=== PATIENT | female | born 1985 | race Caucasian/White ===

== ENCOUNTER 2017-11-15 08:11 | Emergency (ER) | payer MEDICAID, SELFPAY ==
[2017-11-15 08:25] VITALS: BP 128/88; PULSE 98; RESP 18; TEMP 37; O2SAT 97
--- NOTE | 2017-11-15 08:44 | W.ED.GENAD ---
Discharge Plan Discharge Details Chief Complaint: RespSymp Clinical Impression: Acute bronchitis Primary Care Provider: Rupali Lynn ED Provider: Drew Cowan Disposition Patient Disposition: HOME Condition: Good Home Meds and New Rx's Prescriptions: New amoxicillin-pot clavulanate [Augmentin] 875-125 mg tablet 1 tab PO BID Qty: 20 RF: 0 prednisone 50 mg tablet 50 mg PO DAILY 5 Days Qty: 5 RF: 0 Continue levonorgestrel [Mirena] 20 mcg/24 hr (5 years) Intrauterine Device 1 insert INTRAUTERINE ONCE RF: 0 albuterol sulfate 90 mcg/actuation Hfa Aerosol Inhaler 2 puff INHALATION Q6H PRNRF: 0 Discharge Instructions Instructions: Asthma (ED), Bronchospasm (ED) Additional Instructions: Take antibiotics as prescribed. Please take prednisone as prescribed. Follow-up with regular doctor if not improving in 5-7 days to Medical Decision Making MDM Narrative Medical decision making narrative: 32yof presents with cough, congestion, wheeze and probable L otitis media on exam. AFebrile and with normal oxygenation and speech. DDX includes bronchitis, pneumonia, exacerbation of RAD. Referred for CXR, given oral steroids and inhaled duoneb. Patient improving. Question small linear infiltrate on x-ray. I recommend we treat her with a course of Augmentin, ongoing burst of oral steroids, continue efforts at smoking cessation. She states she has a working inhaler. She understands return in fall precautions HPI - General Adult General Mode of arrival: ambulatory. Date/Time Provider Initiated Documentation: 11/15/17 08:14. Limitations to Documentation: no limitations and language barrier. Information obtained by: patient. History of Present Illness 32 year old F presents to the emergency department with the chief complaint of SOB, cough, head cold for days, minimally improved with inhaler at home., described as moderate, and is localized to the head and chest. Patient reports no radiation. Patient started experiencing this day(s) and it has been constant. No relieving factors improve symptom(s), No exacerbating factors reported . Patient did receive the following treatments prior to arrival, other Related Data Home Medications Medication Instructions Recorded Confirmed albuterol sulfate 2 puff INHALATION Q6H PRN 11/15/17 11/15/17 levonorgestrel [Mirena] 1 insert INTRAUTERINE ONCE 11/15/17 11/15/17 Previous Rx's Medication Instructions Recorded amoxicillin-pot clavulanate 1 tab PO BID #20 tab 11/15/17 [Augmentin] prednisone 50 mg PO DAILY 5 Days #5 tab 11/15/17 Allergies Allergy/AdvReac Type Severity Reaction Status Date / Time sulfamethoxazole Allergy Hives Unverified 11/15/17 08:31 [From Bactrim] trimethoprim [From Bactrim] Allergy Hives Unverified 11/15/17 08:31 General Stated Complaint: RespSymp JANESSA: 3 Review of Systems Review of Systems no CP, swelling, n/v/d/f/c. PFSH Social History Smoking/Tobacco Use Status: Current every day Exam Const General: cooperative Nutritional Appearance: average body habitus Orientation: alert and oriented x3 HENMT Head: normal to inspection and normocephalic Ears: hearing grossly normal bilaterally and TM's abnormal bilaterally (L TM distendedm erythematous) Mouth: oral mucosae normal and moist mucous membranes Eyes General: appearance normal, both eyes and all related structures Eyelids: eyelids normal Neck Neck: normal visual inspection, full ROM and lymphadenopathy noted Chest Chest: normal inspection of the chest and normal palpation of entire chest wall Resp Effort & Inspection: normal respiratory effort, able to speak in complete sentences and audible wheezes Cardio Rate: regular rate Rhythm: regular rhythm GI Inspection: normal to inspection Palpation: soft Back/Spine/Pelvis Back: No back tenderness Thoracic/Lumbar Spine: thoracic and lumbar spine normal to inspection Skin General skin exam: no rashes or lesions noted and turgor normal Neuro General: alert, awake and oriented x3 Cognition: normal cognition Speech: speech normal Extrem General: normal to inspection, full ROM and no pedal edema Psych Appearance: grossly normal Mental Status: mental status grossly normal Speech and Movement: speech and movement normal Course Vital Signs Temperature 37 C 11/15/17 08:25 Pulse 98 H 11/15/17 08:25 Respiratory Rate 18 11/15/17 08:25 Blood Pressure 128/88 11/15/17 08:25 Pulse Oximetry 97 11/15/17 08:25 Temperature 37 C 11/15/17 08:25 Pulse 98 H 11/15/17 08:25 Respiratory Rate 18 11/15/17 08:25 Blood Pressure 128/88 11/15/17 08:25 Pulse Oximetry 97 11/15/17 08:25
--- NOTE | 2017-11-15 08:48 | ED.GENADUL_ITS ---
Discharge Plan Discharge Details Chief Complaint: RespSymp Clinical Impression: Acute bronchitis Primary Care Provider: Rupali Lynn ED Provider: Drew Cowan Disposition Patient Disposition: HOME Condition: Good Home Meds and New Rx's Prescriptions: New amoxicillin-pot clavulanate [Augmentin] 875-125 mg tablet 1 tab PO BID Qty: 20 RF: 0 prednisone 50 mg tablet 50 mg PO DAILY 5 Days Qty: 5 RF: 0 Continue levonorgestrel [Mirena] 20 mcg/24 hr (5 years) Intrauterine Device 1 insert INTRAUTERINE ONCE RF: 0 albuterol sulfate 90 mcg/actuation Hfa Aerosol Inhaler 2 puff INHALATION Q6H PRNRF: 0 Discharge Instructions Instructions: Asthma (ED), Bronchospasm (ED) Additional Instructions: Take antibiotics as prescribed. Please take prednisone as prescribed. Follow-up with regular doctor if not improving in 5-7 days to Medical Decision Making MDM Narrative Medical decision making narrative: 32yof presents with cough, congestion, wheeze and probable L otitis media on exam. AFebrile and with normal oxygenation and speech. DDX includes bronchitis, pneumonia, exacerbation of RAD. Referred for CXR, given oral steroids and inhaled duoneb. Patient improving. Question small linear infiltrate on x-ray. I recommend we treat her with a course of Augmentin, ongoing burst of oral steroids, continue efforts at smoking cessation. She states she has a working inhaler. She understands return in fall precautions HPI - General Adult General Mode of arrival: ambulatory . Date/Time Provider Initiated Documentation: 11/15/17 08:14 . Limitations to Documentation: no limitations and language barrier . Information obtained by: patient . History of Present Illness 32 year old F presents to the emergency department with the chief complaint of SOB, cough, head cold for days, minimally improved with inhaler at home., described as moderate, and is localized to the head and chest. Patient reports no radiation. Patient started experiencing this day(s) and it has been constant. No relieving factors improve symptom(s), No exacerbating factors reported . Patient did receive the following treatments prior to arrival, other Related Data Home Medications Medication Instructions Recorded Confirmed albuterol sulfate 2 puff INHALATION Q6H PRN 11/15/17 11/15/17 levonorgestrel [Mirena] 1 insert INTRAUTERINE ONCE 11/15/17 11/15/17 Previous Rx's Medication Instructions Recorded amoxicillin-pot clavulanate 1 tab PO BID #20 tab 11/15/17 [Augmentin] prednisone 50 mg PO DAILY 5 Days #5 tab 11/15/17 Allergies Allergy/AdvReac Type Severity Reaction Status Date / Time sulfamethoxazole Allergy Hives Unverified 11/15/17 08:31 [From Bactrim] trimethoprim [From Bactrim] Allergy Hives Unverified 11/15/17 08:31 General Stated Complaint: RespSymp JANESSA: 3 Review of Systems Review of Systems no CP, swelling, n/v/d/f/c. PFSH Social History Smoking/Tobacco Use Status: Current every day Exam Const General: cooperative Nutritional Appearance: average body habitus Orientation: alert and oriented x3 HENMT Head: normal to inspection and normocephalic Ears: hearing grossly normal bilaterally and TM's abnormal bilaterally (L TM distendedm erythematous) Mouth: oral mucosae normal and moist mucous membranes Eyes General: appearance normal, both eyes and all related structures Eyelids: eyelids normal Neck Neck: normal visual inspection, full ROM and lymphadenopathy noted Chest Chest: normal inspection of the chest and normal palpation of entire chest wall Resp Effort & Inspection: normal respiratory effort, able to speak in complete sentences and audible wheezes Cardio Rate: regular rate Rhythm: regular rhythm GI Inspection: normal to inspection Palpation: soft Back/Spine/Pelvis Back: No back tenderness Thoracic/Lumbar Spine: thoracic and lumbar spine normal to inspection Skin General skin exam: no rashes or lesions noted and turgor normal Neuro General: alert, awake and oriented x3 Cognition: normal cognition Speech: speech normal Extrem General: normal to inspection, full ROM and no pedal edema Psych Appearance: grossly normal Mental Status: mental status grossly normal Speech and Movement: speech and movement normal Course Vital Signs Temperature 37 C 11/15/17 08:25 Pulse 98 H 11/15/17 08:25 Respiratory Rate 18 11/15/17 08:25 Blood Pressure 128/88 11/15/17 08:25 Pulse Oximetry 97 11/15/17 08:25 Temperature 37 C 11/15/17 08:25 Pulse 98 H 11/15/17 08:25 Respiratory Rate 18 11/15/17 08:25 Blood Pressure 128/88 11/15/17 08:25 Pulse Oximetry 97 11/15/17 08:25
[2017-11-15] MEDS: predniSONE 20 MG TAB 60 MG PO (08:54)
[2017-11-15 08:55] VITALS: PULSE 98; RESP 18; RESP 4; O2SAT 97
[2017-11-15] MEDS: Albuterol/Ipratropium 3 ML UPD VIAL UPD (08:55)
[2017-11-15 09:25] VITALS: RESP 4
--- NOTE | 2017-11-15 09:35 | DI.RAD_ITS ---
SYMPTOM/DIAGNOSIS: COUGH, WHEEZE PA AND LATERAL CHEST: 11/15 The heart is not enlarged There is a mild bi-convex thoracolumbar scoliosis. There is partial obscuration of the right cardiac border. There is a possible right infra-hilar infiltrate seen on PA view although not clearly confirmed on the lateral view. Otherwise lungs appear generally clear. No pleural effusion or pneumothorax identified. CONCLUSION: Question right medial basilar infiltrate. Appropriate follow up studies requested.
== END 2017-11-15 09:45 | disposition home or self-care (01) ==
PROVIDERS: Emergency Provider Emergency Medicine; PCP Physician Assistant Medical
DX: J20.9 Acute bronchitis, unspecified (principal); F17.210 Nicotine dependence, cigarettes, uncomplicated
CPT/HCPCS: 94640; 99283; 71046; J7512; J7620

== ENCOUNTER 2018-10-04 13:57 | Emergency (ER) | payer MEDICAID, SELFPAY ==
[2018-10-04 14:02] VITALS: BP 147/85; PULSE 115; RESP 12; TEMP 36.8; O2SAT 96
[2018-10-04 14:16] LABS: Bilirubin Small (Negative); Blood Negative (Negative); Clarity Sl Cloudy (Clear); Glucose Negative (Negative); Ketones 40 mg/dL (Negative); Leukocyte Esterase Negative (Negative); Nitrite Negative (Negative); Specific Gravity >= 1.030 (1.005-1.025); Urobilinogen 0.2 EU/dL (Up TO 0.2); pH 5.5 (5-8)
--- NOTE | 2018-10-04 14:16 | W.ED.GENAD ---
Discharge Plan Disposition Patient Disposition: HOME Condition: Stable Discharge Details Chief Complaint: Urinary Clinical Impression: UTI (urinary tract infection) Primary Care Provider: Rupali Lynn ED Provider: Olivia Geronimo Home Meds and New Rx's Prescriptions: New ciprofloxacin HCl [Cipro] 500 mg tablet 500 mg PO BID 7 Days Qty: 14 RF: 0 metronidazole [Flagyl] 500 mg tablet 500 mg PO BID 5 Days Qty: 10 RF: 0 phenazopyridine [Pyridium] 100 mg tablet 100 mg PO TID PRN (Reason: pain) Qty: 6 RF: 0 Continued Mirena 20 mcg/24 hr (5 years) Intrauterine Device 1 insert INTRAUTERINE ONCE RF: 0 albuterol sulfate 90 mcg/actuation Hfa Aerosol Inhaler 2 puff INHALATION Q6H PRNRF: 0 Discharge Instructions Instructions: Urinary Tract Infection in Women (ED) Additional Instructions: Take the antibiotics until finished. Take the Pyridium as needed and directed for pain with urination. If you still notice vaginal discharge and odor after you finish your antibiotics and your urinary symptoms improve, you can start the Flagyl. Follow-up with your primary care doctor for reevaluation and for recheck of a urinalysis and further evaluation of the protein noted in your urine. Follow-up with your DRAPERY COUNSELOR for reevaluation and for further STD testing if desired. Return to the emergency department if you develop any worsening or concerning symptoms of fever, vomiting, abdominal pain or back pain. Results of your chlamydia and gonorrhea urine testing should be available in the next few days. If there is a positive result, you will be notified by phone from the emergency department. You can also call the emergency department for results of your test. Discharge Data Discharge Date/Time-TO BE ENTERED AT DEPARTURE: 10/04/18 15:25 Discharge Physician: Olivia Geronimo Medical Decision Making 33-year-old female with a history of asthma who presents to the ED with complaint of dysuria, urinary frequency and urgency for the past week. Denies fever, vomiting, or back pain at present. Patient appears nontoxic. Abdomen soft and minimally tender in suprapubic region. No CVA tenderness. test negative. Differential diagnosis includes UTI, pyelonephritis, interstitial cystitis, cervicitis, urethritis, bacterial vaginosis. She had back pain earlier in the day but denies any at present so not consistent with kidney stone and does not appear consistent with pyelonephritis at this time without other systemic symptoms. Urinalysis notes 10-20 WBCs and urine culture sent. Patient also admits to clear discharge which is thicker than her usual physiologic discharge. She is declining pelvic exam and cervical cultures. She is declining any labs or imaging. She would prefer treatment for urinary tract infection. It was also discussed that her symptoms could be due to bacterial vaginosis. She would rather take a prescription for Flagyl to start if her symptoms not improve after treatment with antibiotics for UTI. A prescription for ciprofloxacin was given to cover for possible pyelonephritis as she has an allergy to penicillin and sulfa and Macrobid would not be good coverage for pyelonephritis. She requested a prescription for Pyridium. She was informed of the potential side effects of fluoroquinolones including tendinopathy and tendon rupture and is agreeable with this treatment at this time. She also expressed concern about possible STD. She is sexually active with one partner and denies any known exposures. A dirty urine sample was obtained to test for gonorrhea chlamydia. She is declining treatment for gonorrhea/chlamydia at this time. She was informed that she will be notified of any positive GC results of pending urine sample. She is advised to follow-up with her primary care doctor for evaluation and to return here at any time if worse. Medical Records Medical records reviewed: Yes I reviewed the patient's medical records. Lab Data Lab results reviewed: Yes I reviewed the patient's lab results. Laboratory Tests Range/Units 10/04/18 10/04/18 14:08 14:56 Urine Color (Yellow) Yellow Urine Clarity (Clear) Sl cloudy Urine pH (5-8) 5.5 Ur Specific Handley (1.005-1.025) >= 1.030 H Urine Protein (Negative) mg/dL 30 H Urine Ketones (Negative) mg/dL 40 H Urine Blood (Negative) Negative Urine Nitrite (Negative) Negative Urine Bilirubin (Negative) Small H Urine Urobilinogen (Up TO 0.2) EU/dL 0.2 Ur Leukocyte Esterase (Negative) Negative Urine RBC (0-2) Negative Urine WBC (0-5) HPF 10-20 Ur Epithelial Cells (Negative) HPF Few Urine Crystals (Negative) HPF Many amorphous Urine Bacteria (Negative) HPF Few Urine Casts (Negative) LPF Negative Urine Mucus (Negative) Moderate Ur Culture Indicated? Yes Urine Glucose (Negative) mg/dL Negative Ur Chlamydia DNA Probe Negative Chlamydia/GC DNA Source urine Urine GC DNA Probe Negative HPI General Mode of arrival: ambulatory. Date/Time Provider Initiated Documentation: 10/04/18 14:06. Limitations to Documentation: no limitations. Information obtained by: patient. HPI Narrative: 33-year-old female with a history of asthma who presents to the ED with complaint of dysuria, urinary frequency and urgency for the past week. She admits to occasional nausea for the past several weeks but denies fever, vomiting, or back pain at present. She also stated that she has had intermittent bilateral flank pain for the past week but denies any at present. She also admits to intermittent lower abdominal pain but denies any at present. She states she is on Mirena and does not get regular periods but has had intermittent light bleeding for the past week. She denies any recent antibiotics. She states she is sexually active with one partner and does not use protection. She admits to clear vaginal discharge that is slightly thicker than usual. She denies any green or yellow vaginal discharge or genital lesions. She denies any external erythema or pruritus. Related Data Home Medications Medication Instructions Recorded Confirmed Mirena 1 insert INTRAUTERINE ONCE 11/15/17 10/04/18 albuterol sulfate 2 puff INHALATION Q6H PRN 11/15/17 10/04/18 ciprofloxacin HCl [Cipro] 500 mg PO BID 7 Days #14 tab 10/04/18 metronidazole [Flagyl] 500 mg PO BID 5 Days #10 tab 10/04/18 phenazopyridine [Pyridium] 100 mg PO TID PRN #6 tab 10/04/18 Previous Rx's Medication Instructions Recorded ciprofloxacin HCl [Cipro] 500 mg PO BID 7 Days #14 tab 10/04/18 metronidazole [Flagyl] 500 mg PO BID 5 Days #10 tab 10/04/18 phenazopyridine [Pyridium] 100 mg PO TID PRN #6 tab 10/04/18 Allergies Allergy/AdvReac Type Severity Reaction Status Date / Time amoxicillin Allergy Unverified 10/04/18 14:06 sulfamethoxazole Allergy Hives Unverified 11/15/17 08:31 [From Bactrim] trimethoprim [From Bactrim] Allergy Hives Unverified 11/15/17 08:31 General Stated Complaint: Urinary JANESSA: 3 Review of Systems Review of Systems All systems reviewed & are unremarkable except as noted in HPI and below Constitutional Reports as per HPI, Denies chills and Denies fever(s) Eyes Denies blurry vision ENT Denies dizziness, Denies sore throat and Denies throat swelling Cardiovascular Denies chest pain and Denies dyspnea Respiratory Denies cough and Denies dyspnea Gastrointestinal Reports abdominal pain, Denies diarrhea and Denies vomiting Genitourinary Denies hematuria, Reports urinary frequency, Denies genital pruritis, Denies genital lesions, Denies dysuria, Reports flank pain, Reports urinary urgency and Reports vaginal discharge (clear, minimally different compared to physiologic) Musculoskeletal Denies back pain and Denies numbness Integumentary/Breasts Denies lesions and Denies rash Neurologic Denies dizziness, Denies focal weakness and Denies numbness Allergic/Immunologic Denies throat swelling PFS Medical History Asthma (Chronic) Surgical History H/O section (Chronic) Hx of cholecystectomy (Chronic) Social History Smoking/Tobacco Use Status: Current every day Tobacco Type: cigarettes Drug use: Occasionally Do you feel safe at home: Yes Do you feel safe in your relationship?: Yes Exam Const General: cooperative, healthy appearing and no acute distress HENMT Head: normal to inspection Face and sinus: normal facial exam Eyes General: appearance normal, both eyes and all related structures Pupils: PERRL EOM: EOM intact bilaterally Neck Neck: normal visual inspection and No submandibular swelling Lymphatic: no lymphadenopathy noted Chest Chest: normal inspection of the chest and no tenderness Resp Effort & Inspection: normal respiratory effort and able to speak in complete sentences Auscultation: clear to auscultation bilaterally Cardio Rate: regular rate Rhythm: regular rhythm GI Inspection: normal to inspection Palpation: soft, not firm, not rigid and tender suprapubicly (mild) Auscultation: normal bowel sounds Back/Spine/Pelvis Back: no CVA tenderness Skin General skin exam: no rashes or lesions noted Neuro General: alert, awake and oriented x3 Cognition: normal cognition Speech: speech normal Motor: muscle tone normal throughout Sensory Exam: no sensory deficits noted Extrem General: normal to inspection, full ROM, normal capillary refill, no calf tenderness bilaterally and no edema Psych Appearance: grossly normal Mental Status: mental status grossly normal Speech and Movement: speech and movement normal Affect: normal affect Course Vital Signs Temperature 98.2 F 10/04/18 14:02 Pulse 115 H 10/04/18 14:02 Respiratory Rate 12 10/04/18 14:02 Blood Pressure 147/85 H 10/04/18 14:02 Pulse Oximetry 96 10/04/18 14:02 Temperature 98.2 F 10/04/18 14:02 Temperature Source Temporal Artery Scan 10/04/18 14:02 Pulse 115 H 10/04/18 14:02 Respiratory Rate 12 10/04/18 14:02 Respiratory Effort Non-Labored 10/04/18 14:05 Blood Pressure 147/85 H 10/04/18 14:02 Blood Pressure Position Sitting 10/04/18 14:02 Pulse Oximetry 96 10/04/18 14:02 Oxygen Delivery Method Room Air 10/04/18 14:02 Oxygen Flow Rate 0 10/04/18 14:02 Pain Level 6 10/04/18 14:02
[2018-10-04 14:47] LABS: Bacteria Few HPF (Negative); C & S Indicated? Yes; Casts Negative LPF (Negative); Crystals Many Amorphous HPF (Negative); Epithelial Cells Few HPF (Negative); Mucus Moderate (Negative); RBC Negative (0-2)
[2018-10-04 15:09] VITALS: BP 145/88; PULSE 92; RESP 18; O2SAT 98
[2018-10-04] MEDS: Phenazopyridine 100 MG TAB PO (15:12)
[2018-10-05 14:40] LABS: Chlamydia Result Negative; GC Result Negative
== END 2018-10-04 15:25 | disposition home or self-care (01) ==
PROVIDERS: Emergency Provider Physician Assistant; PCP Physician Assistant Medical
DX: N39.0 Urinary tract infection, site not specified (principal)
CPT/HCPCS: 81025; 87491; 87591; 99283; 81003; 81015; 87086

== ENCOUNTER 2018-10-16 16:19 | Emergency (ER) | payer MEDICAID, SELFPAY ==
[2018-10-16 16:24] VITALS: BP 143/89; PULSE 100; RESP 16; TEMP 37.2; O2SAT 97
--- NOTE | 2018-10-16 16:28 | ED.GENADUL_ITS ---
Discharge Plan Disposition Patient Disposition: HOME Condition: Stable Discharge Details Chief Complaint: RashLesion Clinical Impression: Cellulitis of right breast Primary Care Provider: Rupali Lynn ED Provider: Olivia Geronimo Home Meds and New Rx's Prescriptions: New clindamycin HCl 150 mg capsule 450 mg PO Q6H 7 Days Qty: 84 RF: 0 Continued phenazopyridine [Pyridium] 100 mg tablet 100 mg PO TID PRN (Reason: pain) Qty: 6 RF: 0 Mirena 20 mcg/24 hr (5 years) Intrauterine Device 1 insert INTRAUTERINE ONCE RF: 0 albuterol sulfate 90 mcg/actuation Hfa Aerosol Inhaler 2 puff INHALATION Q6H PRNRF: 0 Discharge Instructions Instructions: Cellulitis (ED) Additional Instructions: Alternate tylenol and motrin as needed and directed for pain. Apply warm compresses to the affected area several times daily for 20 minutes at a time. Take the antibiotics until finished. Call your postal service window clerk tomorrow morning to schedule a follow up appointment in the next week. Return immediately to the emergency department if you develop any worsening or new concerning symptoms. Discharge Data Discharge Physician: Olivia Geronimo Medical Decision Making 33yo F with right medial breast swelling for the past 3 days, with development of pain since last night. Denies any fever or injury. Patient is afebrile. She appears nontoxic. There is an approximate 3 x 4 cm indurated area right medial breast with surrounding minimal erythema. Bedside ultrasound done which noted possible collection of minimal pus. It is likely that due to patient's wire bras, she developed a local area of cellulitis. Discussed with patient that we can attempt an I&D but she is declining this at this time and would rather take antiviral . She is instructed to apply warm compresses several times daily and take the antibiotics until finished. She is advised to avoid wearing her usual wire bra and either wear a cotton sports bra, or avoid bra while infection still present. Patient is allergic to penicillin and sulfa. She was recently treated with Cipro. Will treat with clindamycin. She is advised to take probiotics while taking antibiotic. She is advised to call her postal service window clerk tomorrow to schedule follow-up appointment for reevaluation if symptoms do not improve or change for consideration of formal breast ultrasound. She is advised to return here at any time if worse. Lab Data Lab results reviewed: Yes I reviewed the patient's lab results. HPI General Mode of arrival: ambulatory . Date/Time Provider Initiated Documentation: 10/16/18 16:20 . Limitations to Documentation: no limitations . Information obtained by: patient . HPI Narrative: Pt is a 33yo F who presents to the ED w/ a c/o R medial breast swelling for the past 3 days and pain since yesterday. Pt states the area has not gotten larger since she first noticed it 3 days ago. She denies any fever. She denies any discharge or abnormalities with the nipple. She states she is on Mirena and has not had a period for a while. She denies any injury or bite. Related Data Home Medications Medication Instructions Recorded Confirmed Mirena 1 insert INTRAUTERINE ONCE 11/15/17 10/16/18 albuterol sulfate 2 puff INHALATION Q6H PRN 11/15/17 10/16/18 phenazopyridine [Pyridium] 100 mg PO TID PRN #6 tab 10/04/18 10/16/18 clindamycin HCl 450 mg PO Q6H 7 Days #84 cap 10/16/18 Previous Rx's Medication Instructions Recorded phenazopyridine [Pyridium] 100 mg PO TID PRN #6 tab 10/04/18 clindamycin HCl 450 mg PO Q6H 7 Days #84 cap 10/16/18 Allergies Allergy/AdvReac Type Severity Reaction Status Date / Time amoxicillin Allergy Unverified 10/16/18 16:26 sulfamethoxazole Allergy Hives Unverified 10/16/18 16:26 [From Bactrim] trimethoprim [From Bactrim] Allergy Hives Unverified 10/16/18 16:26 General Stated Complaint: RashLesion JANESSA: 3 Review of Systems Review of Systems All systems reviewed & are unremarkable except as noted in HPI and below Constitutional Reports as per HPI, Denies chills and Denies fever(s) Eyes Denies blurry vision ENT Denies dizziness, Denies sore throat and Denies throat swelling Cardiovascular Denies chest pain and Denies dyspnea Respiratory Denies cough and Denies dyspnea Gastrointestinal Denies abdominal pain, Denies diarrhea and Denies vomiting Genitourinary Denies hematuria and Denies dysuria Musculoskeletal Denies back pain and Denies numbness Integumentary/Breasts Reports lesions and Denies rash Neurologic Denies dizziness, Denies focal weakness and Denies numbness Allergic/Immunologic Denies throat swelling PFSH Social History Smoking/Tobacco Use Status: Current every day Tobacco Type: cigarettes Drug use: Occasionally Substance use type: marijuana Do you feel safe at home: Yes Do you feel safe in your relationship?: Yes Exam Const General: cooperative, healthy appearing and no acute distress HENMT Head: normal to inspection Mouth: oral mucosae normal Eyes General: appearance normal, both eyes and all related structures Neck Neck: normal visual inspection Chest Chest/axillae images: 1. 3 x 4 cm area of induration on right medial breast. No fluctuance noted. There is surrounding erythema which is minimal. There are no open wounds. No lesions or rash. No evidence of trauma. 2. Scaling erythema with an outer edge of white scaling which appears consistent with psoriasis rash Resp Effort & Inspection: normal respiratory effort and able to speak in complete sentences Cardio Rate: regular rate Skin General skin exam: no rashes or lesions noted Neuro General: alert, awake and oriented x3 Motor: muscle tone normal throughout Extrem General: normal to inspection and full ROM Psych Appearance: grossly normal Affect: normal affect Course Vital Signs Temperature 98.9 F 10/16/18 16:24 Pulse 100 H 10/16/18 16:24 Respiratory Rate 16 10/16/18 16:24 Blood Pressure 143/89 H 10/16/18 16:24 Pulse Oximetry 97 10/16/18 16:24 Temperature 98.9 F 10/16/18 16:24 Temperature Source Skin 10/16/18 16:24 Pulse 100 H 10/16/18 16:24 Respiratory Rate 16 10/16/18 16:24 Respiratory Effort Non-Labored 10/16/18 16:24 Blood Pressure 143/89 H 10/16/18 16:24 Blood Pressure Position Sitting 10/16/18 16:24 Pulse Oximetry 97 10/16/18 16:24 Oxygen Delivery Method Room Air 10/16/18 16:24 Oxygen Flow Rate 0 10/16/18 16:24 Pain Level 5 10/16/18 16:24
[2018-10-16 17:01] VITALS: BP 143/89; PULSE 100; RESP 16; TEMP 37.2; O2SAT 97
== END 2018-10-16 17:10 | disposition home or self-care (01) ==
PROVIDERS: Emergency Provider Physician Assistant; PCP Physician Assistant Medical
DX: N61.0 Mastitis without abscess (principal)
CPT/HCPCS: 99283

== ENCOUNTER 2018-10-23 07:01 | Emergency (ER) | payer MEDICAID, SELFPAY ==
[2018-10-23 07:08] VITALS: BP 138/89; PULSE 107; RESP 16; TEMP 36.8; O2SAT 100
[2018-10-23 07:11] VITALS: RESP 16
--- NOTE | 2018-10-23 07:37 | ED.GENADUL_ITS ---
Discharge Plan Disposition Patient Disposition: HOME Condition: Stable Discharge Details Chief Complaint: GenMedical Clinical Impression: Abscess of breast Primary Care Provider: Rupali Lynn ED Provider: Romy Ross Home Meds and New Rx's Prescriptions: New doxycycline hyclate 100 mg tablet 100 mg PO BID Qty: 20 RF: 0 Continued phenazopyridine [Pyridium] 100 mg tablet 100 mg PO TID PRN (Reason: pain) Qty: 6 RF: 0 Mirena 20 mcg/24 hr (5 years) Intrauterine Device 1 insert INTRAUTERINE ONCE RF: 0 albuterol sulfate 90 mcg/actuation Hfa Aerosol Inhaler 2 puff INHALATION Q6H PRNRF: 0 Discharge Instructions Instructions: Doxycycline (By mouth), Abscess (ED) Additional Instructions: Please return immediately to the emergency department if you develop any new or worsening symptoms or if you become otherwise concerned. It is extremely important that you call as soon as possible to make an appointment to be seen in follow-up for this visit by your primary care doctor. Stand Alone Forms: Work Release Referrals: Rupali Lynn [Primary Care Provider] - Discharge Data Discharge Date/Time-TO BE ENTERED AT DEPARTURE: 10/23/18 09:22 Medical Decision Making Yin Toledo is a 33-year-old woman with a history of asthma who presented to the emergency department with breast abscess after outpatient treatment with clindamycin for same since 10/16/2018. On exam patient is well and nontoxic appearing. 3 x 3 cm area of erythema, tenderness, fluctuance to the medial aspect of the inframammary fold. No skin necrosis. No further tachycardia on exam. Bedside ultrasound shows 2 x 1.5 cm fluid collection. Plan for needle aspiration. Exam/history is not consistent with complicated abscess requiring surgical incision, sepsis, other acute emergent life-threatening process. Needle aspiration performed under ultrasound guidance, please see procedure note. Procedure performed under typical sterile precautions. Needle aspiration was performed with approach 1 cm lateral to area of erythema and performed with 18-gauge needle. 6 mL's purulent fluid aspirated with collapse of abscess noted on ultrasound. Patient tolerated procedure well. There were no complications. Fluid culture sent. Given mild extension of erythema from abscess site despite oral antibiotics, plan to continue clindamycin and will add doxycycline. Antibiotic choice limited at this time by patient allergies. I discussed taking probiotics and/or eating yogurt for the duration of antibiotic course, which patient was amenable to. Also discussed that patient may need to return for repeat aspiration. I had a lengthy discussion with the patient regarding return to emergency department precautions, home care, and importance of outpatient follow-up. Patient verbalized understanding of the plan was amenable. All questions were answered. Patient was discharged home with clear plan for outpatient follow-up. Medical Records Medical records reviewed: Yes I reviewed the patient's medical records. HPI General Mode of arrival: ambulatory . Date/Time Provider Initiated Documentation: 10/23/18 07:11 . Limitations to Documentation: no limitations . Information obtained by: patient . HPI Narrative: Yin Toledo is a 33-year-old woman with a history of asthma, psoriasis presenting to the emergency department with breast infection. Patient reports that she was seen here 1 week ago for mildly painful lump under her right breast. At that time bedside ultrasound per record review showed very small fluid collection and patient declined I&D. Patient was started on clindamycin at that visit, which she reports she has been taking as prescribed. Patient reports that she feels like she has gradually been worsening since that visit. She reports general malaise, nausea, and worsening of the pain at the breast infection. She has had subjective fevers. Patient reports that she has been vomiting every morning for the past 2 weeks, prior to when she noticed the breast symptoms, but she has attributed this to stress as she recently broke up with her fianc?. Patient reports that she has had diarrhea in the past 2 to 3 days. She denies any pain other than pain at the site of the breast infection. Patient reports that she smokes cigarettes daily, uses marijuana recreationally, and has been drinking alcohol intermittently. Patient reports that she drinks 3 tall boys last night, but this is not typical for her. Related Data Home Medications Medication Instructions Recorded Confirmed Mirena 1 insert INTRAUTERINE ONCE 11/15/17 10/16/18 albuterol sulfate 2 puff INHALATION Q6H PRN 11/15/17 10/16/18 phenazopyridine [Pyridium] 100 mg PO TID PRN #6 tab 10/04/18 10/16/18 doxycycline hyclate 100 mg PO BID #20 tab 10/23/18 Previous Rx's Medication Instructions Recorded phenazopyridine [Pyridium] 100 mg PO TID PRN #6 tab 10/04/18 doxycycline hyclate 100 mg PO BID #20 tab 10/23/18 Allergies Allergy/AdvReac Type Severity Reaction Status Date / Time amoxicillin Allergy Unverified 10/16/18 16:26 sulfamethoxazole Allergy Hives Unverified 10/16/18 16:26 [From Bactrim] trimethoprim [From Bactrim] Allergy Hives Unverified 10/16/18 16:26 General Stated Complaint: GenMedical JANESSA: 3 Review of Systems Review of Systems Constitutional: Reports subjective fevers Eyes: denies eye pain ENT: denies facial pain, dental pain, sore throat Cardiovascular: denies chest pain Respiratory: denies SOB, cough GI: denies abdominal pain, reports vomiting, diarrhea : denies flank pain MSK: denies back pain, neck pain, arthralgias, myalgias Skin: Reports chronic psoriasis to left breast, elbows as well as abscess to right breast as per HPI Neuro: denies headaches, numbness, weakness PFSH Medical History Asthma (Chronic) Social History Smoking/Tobacco Use Status: Current every day Tobacco Type: cigarettes Drug use: Occasionally Substance use type: marijuana Do you feel safe at home: Yes Do you feel safe in your relationship?: Yes Exam Narrative Exam Narrative: Constitutional: well and [id number], pleasant, conversing normally HENT: head atraumatic/normocephalic/normal inspection, mucous membranes moist Eyes: conjunctiva normal, sclera normal, pupils 3mm b/l Neck: no stridor, normal ROM, trachea midline Chest: Mild scaling erythematous rash to left inframammary fold. 3 x 3 cm area of erythema, tenderness, fluctuance to the medial aspect of the right inframammary fold with 2 cm erythema expect extending into the breast at the superior aspect of the abscess. Bilateral breasts with otherwise normal inspection. Resp: normal work of breathing Cardio: normal rate, normal rhythm Skin: warm, dry, normal color, no rash Neuro: alert, not altered, grossly non-focal, normal tone Ext: no edema Psych: normal mood, normal affect, normal behavior Course Vital Signs Temperature 36.8 C 10/23/18 07:08 Pulse 107 H 10/23/18 07:08 Respiratory Rate 16 10/23/18 07:08 Blood Pressure 138/89 10/23/18 07:08 Pulse Oximetry 100 10/23/18 07:08 Temperature 36.8 C 10/23/18 07:08 Temperature Source Temporal Artery Scan 10/23/18 07:08 Pulse 107 H 10/23/18 07:08 Respiratory Rate 16 10/23/18 07:11 Respiratory Effort Non-Labored 10/23/18 07:11 Respiratory Depth Normal 10/23/18 07:11 Respiratory Pattern Normal 10/23/18 07:11 Blood Pressure 138/89 10/23/18 07:08 Pulse Oximetry 100 10/23/18 07:08 Oxygen Delivery Method Room Air 10/23/18 07:08 Oxygen Flow Rate 0 10/23/18 07:08 Procedures Abscess I/D Site: Other Side (if applicable): Right Local Anesthetic: Lidocaine 1% Amount of anesthesia used (mL): 1 Technique: Needle Aspiration Irrigation: Yes (1% lidocaine) Packing used?: None
[2018-10-23] MEDS: Lidocaine/Epinephri/Tetracaine Topical Gel 3 ML (09:05)
--- NOTE | 2018-10-23 09:05 | NUR.NOTE ---
Nursing Note: 7ml fluid drained from right breast.
--- NOTE | 2018-10-23 09:06 | NUR.NOTE ---
Nursing Note: Wound/fluid culture collected and sent to lab.
== END 2018-10-23 09:22 | disposition home or self-care (01) ==
PROVIDERS: Emergency Provider Student in an Organized Health Care Education/Training Program; PCP Physician Assistant Medical
DX: N61.1 Abscess of the breast and nipple (principal)
CPT/HCPCS: 10160; 87070; 87075; 87205

== ENCOUNTER 2021-06-07 10:37 | Emergency (ER) | payer MEDICAID, SELFPAY ==
[2021-06-07 10:41] VITALS: BP 145/90; PULSE 104; RESP 18; TEMP 36.8; O2SAT 99
--- NOTE | 2021-06-07 10:48 | ED.GENADUL_ITS ---
Discharge Plan Disposition Patient Disposition: HOME Condition: Stable Discharge Details Clinical Impression: Otitis externa of left ear Primary Care Provider: Rupali Lynn ED Provider: Olivia Geronimo Home Meds and New Rx's Prescriptions: New ciprofloxacin HCl 500 mg tablet 500 mg PO BID 7 Days Qty: 14 0RF prednisone 20 mg tablet See Rx Instructions .ROUTE .COMPLEX Qty: 12 0RF Rx Instructions: Take 3 tabs daily for 2 days, then 2 tabs daily for 2 days, then 1 tab daily for 2 days Continued Humira(CF) Pen 40 mg/0.4 mL pen injector kit 40 mg SUBCUT DIRECTED 0RF Rx Instructions: every other week Mirena 20 mcg/24 hr (5 years) Intrauterine Device 1 insert INTRAUTERINE ONCE 0RF albuterol sulfate 90 mcg/actuation Hfa Aerosol Inhaler 2 puff INHALATION Q6H PRN0RF Discharge Instructions Instructions: Otitis Externa (ED) Additional Instructions: Your exam at this time appears likely consistent with an otitis externa which is an infection of your ear canal. Continue your Ciprodex until finished. You were given a prescription for oral steroids which will help to decrease your inflammation and pain. This may provide enough relief to resolve your symptoms. You may also have a middle ear infection. A middle ear infection most likely can be caused by a virus but can progress into a bacterial infection. If you have no relief with the ear drops and oral steroids in the next 2 days, you can start the oral antibiotic prescription you were given for additional treatment of your external ear infection or a possible middle ear infection. Alternate tylenol and motrin as needed and directed for pain. You have been placed on care management list to arrange for a follow-up appointment with an ear nose and throat doctor for reevaluation. Discussed with your primary care doctor whether psoriasis may be associated with your chronic itching within your ears. Follow-up with [facility] dermatology and/or ENT for the chronic itching within your ears. Return immediately to the emergency department if you develop any worsening or new concerning symptoms. Referrals: Hector Dumont MD [ [facility] STAFF PHYSICIAN] - Discharge Data Discharge Physician: Olivia Geronimo Medical Decision Making 36-year-old female with a history of psoriasis with psoriatic arthritis on Humira injections every other week presents for left ear pain since yesterday. Currently on Ciprodex per [place] since yesterday. She has scaling within bilateral ear canals but significant edema and erythema within the left ear canal with pain with pulling on the auricle consistent with otitis externa. The left TM appears dull but not significantly erythematous. Patient endorsed chronic itching within her ears in the past few months. This could be secondary to her psoriasis or another type of dermatitis. Due to the significant left ear pain and ear canal edema, will treat with oral steroids. Discussed with patient that she may not need a course of oral antibiotics but will provide if her symptoms not improve or worsen over the 2 days Patient placed on care management list to arrange for follow-up appointment with ENT. She was also advised to follow-up with her technical sales representatives at [facility] and her PCP. Usual and customary return precautions given prior to discharge. HPI General Mode of arrival: ambulatory . Date/Time Provider Initiated Documentation: 06/07/21 10:48 . Limitations to Documentation: no limitations . Information obtained by: patient . HPI Narrative: Patient is a 36-year-old female with a history of psoriasis and psoriatic arthritis who presents with left ear pain since yesterday. Patient states she was seen at [facility] yesterday for her symptoms and started on Ciprodex. She states a month ago she had similar symptoms and was treated with Ciprodex with complete resolution of her symptoms. She also states she has had chronic itching within her ears for the past few months. She states she takes Humira injection every other week for her psoriasis which is prescribed by [facility] dermatology. She does admit to occasional allergy symptoms such as sneezing, runny nose and nasal congestion but denies any fever, ear drainage or sore throat Related Data Home Medications Medication Instructions Recorded Confirmed albuterol sulfate 90 mcg/actuation 2 puff INHALATION Q6H PRN 11/15/17 06/07/21 aerosol inhaler levonorgestrel 20 mcg/24 hours (7 1 insert INTRAUTERINE ONCE 11/15/17 06/07/21 yrs) 52 mg intrauterine device (Mirena) adalimumab 40 mg/0.4 mL 40 mg SUBCUT DIRECTED 06/07/21 06/07/21 subcutaneous pen kit (Humira(CF) Pen) ciprofloxacin HCl 500 mg tablet 500 mg PO BID 7 Days #14 tab 06/07/21 prednisone 20 mg tablet See Rx Instructions .ROUTE 06/07/21 .COMPLEX #12 tab Previous Rx's Medication Instructions Recorded ciprofloxacin HCl 500 mg tablet 500 mg PO BID 7 Days #14 tab 06/07/21 prednisone 20 mg tablet See Rx Instructions .ROUTE 06/07/21 .COMPLEX #12 tab Allergies Allergy/AdvReac Type Severity Reaction Status Date / Time amoxicillin Allergy Unverified 06/07/21 10:46 sulfamethoxazole Allergy Hives Unverified 06/07/21 10:46 [From Bactrim] trimethoprim [From Bactrim] Allergy Hives Unverified 06/07/21 10:46 General Stated Complaint: EarProblem JANESSA: 4 Review of Systems All systems reviewed & are unremarkable except as noted in HPI and below Constitutional Constitutional: Reports as per HPI, Denies chills and Denies fever(s) Eyes Eyes: Denies blurry vision ENT Ears, Nose, Mouth, and Throat: Denies dizziness, Reports otalgia, Reports nasal congestion, Reports sinus pressure, Denies sore throat and Denies throat swelling Cardiovascular Cardiovascular: Denies chest pain and Denies dyspnea Respiratory Respiratory: Denies cough and Denies dyspnea Gastrointestinal Gastrointestinal: Denies abdominal pain, Denies diarrhea and Denies vomiting Genitourinary Genitourinary: Denies hematuria and Denies dysuria Musculoskeletal Musculoskeletal: Denies back pain and Denies numbness Integumentary/Breasts Skin/Breast: Denies lesions and Denies rash Neurologic Neurologic: Denies dizziness, Denies localized weakness and Denies numbness Allergic/Immunologic Allergic/Immunologic: Denies throat swelling PFSH All Active Problems (Updated 06/07/21 @ 11:08 by Olivia Geronimo DO) Otitis externa of left ear (Acute) Medical History (Updated 06/07/21 @ 11:08 by Olivia Geronimo DO) Asthma Surgical History H/O section Hx of cholecystectomy Social History Smoking/Tobacco Use Status: Current every day Tobacco Type: cigarettes Smoking risk assessment performed?: Yes Alcohol Intake: never Drug use: Occasionally Substance use type: marijuana Do you feel safe at home: Yes Do you feel safe in your relationship?: Yes Exam Const General: cooperative, healthy appearing and no acute distress Orientation: alert, awake and oriented x3 HENMT Head: normal to inspection Ears: hearing grossly normal bilaterally, mastoids normal bilaterally, EAC abnormal edema on the left and other (Scaling within left ear can) and TM abnormal dull on the left General nose exam: external nose normal Face and sinus: normal facial exam and no sinus tenderness Mouth: oral mucosae normal Throat: posterior oropharynx normal Eyes General: appearance normal, both eyes and all related structures Neck Neck: normal visual inspection, trachea midline, supple, no anterior neck swelling and No submandibular swelling Resp Effort & Inspection: normal respiratory effort and able to speak in complete sentences Cardio Rate: regular rate Skin General skin exam: no rashes or lesions noted Neuro General: patient alert, patient awake and patient oriented x3 Motor: muscle tone normal throughout Extrem General: normal to inspection and full ROM Psych Appearance: grossly normal Affect: normal affect Course Vital Signs Vital signs: Vital Signs Temperature 98.3 F 06/07/21 10:41 Pulse 104 H 06/07/21 10:41 Respiratory Rate 18 06/07/21 10:41 Blood Pressure 145/90 H 06/07/21 10:41 Pulse Oximetry 99 06/07/21 10:41 Temperature 98.3 F 06/07/21 10:41 Temperature Source Oral 06/07/21 10:41 Pulse 104 H 06/07/21 10:41 Respiratory Rate 18 06/07/21 10:41 Blood Pressure 145/90 H 06/07/21 10:41 Blood Pressure Position Sitting 06/07/21 10:41 Pulse Oximetry 99 06/07/21 10:41 Oxygen Delivery Method Room Air 06/07/21 10:41 Oxygen Flow Rate 0 06/07/21 10:41 Pain Level 5 06/07/21 10:41 Comment 06/07/21 10:41
[2021-06-07] MEDS: predniSONE 20 MG TAB 60 MG PO (11:19)
--- NOTE | 2021-06-07 12:40 | NUR.NOTE ---
Dr. Ballesteros requesting an evaluation With ENT re: otitis externa and chronic itching. I have faxed the request to ENT. [facility]
== END 2021-06-07 11:23 | disposition home or self-care (01) ==
LOC: ER 12:33
PROVIDERS: Emergency Provider Physician Assistant; PCP Physician Assistant Medical
DX: H60.502 Unspecified acute noninfective otitis externa, left ear (principal)
CPT/HCPCS: 81025; 99283; J7512

== ENCOUNTER 2021-08-01 09:40 | Emergency (ER) | payer MEDICAID, SELFPAY ==
[2021-08-01 09:46] VITALS: BP 137/86; PULSE 82; RESP 16; TEMP 36.3; O2SAT 98
--- NOTE | 2021-08-01 10:24 | ED.GENADUL_ITS ---
Discharge Plan Disposition Patient Disposition: HOME Condition: Stable Discharge Details Clinical Impression: Dermatitis of both ear canals Primary Care Provider: Rupali Lynn ED Provider: Chitra Castro Home Meds and New Rx's Prescriptions: New hydrocortisone-acetic acid 1-2 % drops 4 drp otic (ear) TID 7 Days Qty: 10 0RF Rx Instructions: 4 drops three times daily while awake No Action Humira(CF) Pen 40 mg/0.4 mL pen injector kit 40 mg SUBCUT DIRECTED Rx Instructions: every other week Mirena 20 mcg/24 hr (5 years) Intrauterine Device 1 insert INTRAUTERINE ONCE albuterol sulfate 90 mcg/actuation Hfa Aerosol Inhaler 2 puff INHALATION Q6H PRN Discharge Instructions Additional Instructions: Use the ear drops as directed three times daily. Warm moist compresses to left ear cyst. Follow up with ear nose and throat as directed. You are placed on a list to get an appointment within a week if possible. If you do not hear from them in a couple of days please give them a call to make an appointment. Please take Tylenol or Ibuprofen with food every 4-6 hours as needed for pain and swelling. Follow up with primary care provider in 3-5 days. Return to ED sooner if any worsening or concerns. Increase oral fluids. Referrals: Hector Dumont MD [ [facility] STAFF PHYSICIAN] - 1 week Medical Decision Making We will give patient a prescription for VoSol HC drops and refer to ENT. HPI General Mode of arrival: ambulatory . Date/Time Provider Initiated Documentation: 08/01/21 09:46 . Limitations to Documentation: no limitations . Information obtained by: patient, RN notes reviewed and old records reviewed . HPI Narrative: 36-year-old female presents to the ER with chief complaint of bilateral ear itching and an area of swelling noted to her left ear canal. She was seen in May for otitis externa and was referred to ear nose and throat which patient never followed up. She reports that for the last 3 to 4 days she has had some increased itching to her right ear canal and noticed a pimple-like cyst to her left inner ear canal. She reports she does have a history of dermal cyst. She denies any sore throat, fever or any other complaints. Related Data Home Medications Medication Instructions Recorded Confirmed albuterol sulfate 90 mcg/actuation 2 puff inhalation Q6H PRN 11/15/17 08/01/21 aerosol inhaler levonorgestrel 20 mcg/24 hours (7 1 insert intrauterine ONCE 11/15/17 08/01/21 yrs) 52 mg intrauterine device (Mirena) adalimumab 40 mg/0.4 mL 40 mg subcut DIRECTED 06/07/21 08/01/21 subcutaneous pen kit (Humira(CF) Pen) hydrocortisone-acetic acid 1 %-2 % 4 drp otic (ear) TID Ear Itching 7 08/01/21 ear drops days #10 mL Previous Rx's Medication Instructions Recorded hydrocortisone-acetic acid 1 %-2 % 4 drp otic (ear) TID Ear Itching 7 08/01/21 ear drops days #10 mL Allergies Allergy/AdvReac Type Severity Reaction Status Date / Time amoxicillin Allergy Unverified 08/01/21 09:49 sulfamethoxazole Allergy Hives Unverified 08/01/21 09:49 [From Bactrim] trimethoprim [From Bactrim] Allergy Hives Unverified 08/01/21 09:49 General Stated Complaint: EarProblem JANESSA: 4 Review of Systems All systems reviewed & are unremarkable except as noted in HPI and below ENT Ears, Nose, Mouth, and Throat: Denies ear discharge and Reports otalgia PFSH All Active Problems (Updated 08/01/21 @ 10:29 by Chitra Castro) Dermatitis of both ear canals (Acute) Medical History (Updated 08/01/21 @ 10:29 by Chitra Castro) Asthma Surgical History H/O section Hx of cholecystectomy Social History Smoking/Tobacco Use Status: Current every day Tobacco Type: cigarettes Smoking risk assessment performed?: Yes Alcohol Intake: never Drug use: Occasionally Substance use type: marijuana Do you feel safe at home: Yes Do you feel safe in your relationship?: Yes Exam HENMT Ears: TM normal on the right, TM normal on the left, mastoids normal, no periauricular adenopathy and EAC abnormal erythema and edema on the left; no otic discharge Outer ear/TM images: 1. Cyst noted tender slightly erythemic General nose exam: external nose normal and nares normal Course Vital Signs Vital signs: Vital Signs Temperature 36.3 C L 08/01/21 09:46 Pulse 82 08/01/21 09:46 Respiratory Rate 16 08/01/21 09:46 Blood Pressure 137/86 08/01/21 09:46 Pulse Oximetry 98 08/01/21 09:46 Temperature 36.3 C L 08/01/21 09:46 Temperature Source Temporal Artery Scan 08/01/21 09:46 Pulse 82 08/01/21 09:46 Respiratory Rate 16 08/01/21 09:46 Respiratory Effort Non-Labored 08/01/21 10:13 Blood Pressure 137/86 08/01/21 09:46 Blood Pressure Position Sitting 08/01/21 09:46 Pulse Oximetry 98 08/01/21 09:46 Pain Level 8 08/01/21 10:13 Comment 08/01/21 09:46
--- NOTE | 2021-08-01 10:24 | NUR.NOTE ---
Mckayla Arredondo has requested a consult with ENT for evaluation of cyst in left eart cannal. CLB
== END 2021-08-01 10:33 | disposition home or self-care (01) ==
PROVIDERS: Emergency Provider Registered Nurse Emergency; PCP Physician Assistant Medical
DX: L30.8 Other specified dermatitis (principal)
CPT/HCPCS: 99283

== ENCOUNTER 2022-01-13 08:39 | Emergency (ER) | payer MEDICAID, SELFPAY ==
--- OUTSIDE RECORDS SUMMARY | 2022-01-13 08:43 | XMS_ITS | Encounter Summary ---
:1985 Author Organization [place] [address] Care Team Providers Name Role Phone None Primary Care Provider Unavailable Encounter Details Date Type Department Care Team Description 01/06/2021 [facility] [address] [facility] [place] [address] [facility] [address] [phone] [place], [place] [address] (Wo rk) Social History Tobacco Use Types Packs/Day Years Used Date Current Every Day Smoker Cigarettes Smokeless Tobacco: Never Used Sex Assigned at Date Recorded Not on file documented as of this encounter Plan of Treatment Not on filedocumented as of this encounter Visit Diagnoses Not on filedocumented in this encounter Care Teams Inside Sales Professional Relationship Specialty Start Date End Date None PCP - General 12/17/20 05/30/21 None documented as of this encounter
--- OUTSIDE RECORDS SUMMARY | 2022-01-13 08:43 | XMS_ITS | Encounter Summary ---
:1985 Author Organization [facility] [place] [address] Care Team Providers Name Role Phone Rupali Lynn Primary Care Provider Reason for Visit Reason Comments Medication Management Encounter Details Date Type Department Care Team Description 09/15/2021 Specialty Pharmacy Pharmacy [facility] Ivory Nascimento, [place] [phone] Social History Tobacco Use Types Packs/Day Years Used Date Current Every Day Smoker Cigarettes Smokeless Tobacco: Never Used Sex Assigned at Date Recorded Not on file documented as of this encounter Progress Notes Ivory Nascimento RPH - 09/15/2021 4:09 PM EDT Clinical Management Plan: Transfer of Care/Discharge Specialty Services Specialty Pharmacy Consultation; Ivory Nascimento [facility] Comprehensive Medication Management (CMM) Yin Toledo [address] [place] [phone] Telephone Information: Work Phone Not on file. Is the patient transferring services to a different Specialty Pharmacy or discontinuing the medication? Discontinuing Medication Medication: Humira Reason for discontinuation or transfer: ineffective Approximate date of discontinuation or transfer: 09/09/21 Patient's response to therapy: poor Summary of services provided by [facility] Special[facility]: routine refills, consultations and benefits investigation Summary of on-going needs: will change therapy to Stelara. Referral for additional services (if applicable): no Is patient aware of referral? N/A Instructions provided to patient about discharge/transfer: no Provider aware of discontinuation or transfer: yes Patient understands no changes to current drug regimen were made at the appointment and that [facility] is providing recommendations (summary located at top of note) for provider review and follow up. Ivory Nascimento RPH 09/15/21 4:09 PM documented in this encounter Plan of Treatment Not on filedocumented as of this encounter Visit Diagnoses Not on filedocumented in this encounter Care Teams Spring Coiler Hand Relationship Specialty Start Date End Date Rupali Lynn PA PCP - General Family Medicine 05/31/[address] [place] [address] documented as of this encounter
--- OUTSIDE RECORDS SUMMARY | 2022-01-13 08:43 | XMS_ITS | Encounter Summary ---
:1985 Author Organization [facility] [place] [address] Care Team Providers Name Role Phone Rupali Lynn Primary Care Provider Reason for Visit Reason Comments Specialty Pharmacy Review Encounter Details Date Type Department Care Team Description 12/30/2021 Specialty Pharmacy Pharmacy at [facility] [place] [phone] Social History Tobacco Use Types Packs/Day Years Used Date Current Every Day Smoker Cigarettes Smokeless Tobacco: Never Used Sex Assigned at Date Recorded Not on file documented as of this encounter Progress Notes Jerry Aiken - 12/30/2021 11:59 PM EDT The [facility] has completed a benefits investigation for Yin Toledo to review their eligibility to fill at [facility]. Per patient's medication list they are prescribed TALTZ AUTOINJECTOR 80 MG/ML and the medication is currently filled at the [facility]. documented in this encounter Plan of Treatment Not on filedocumented as of this encounter Visit Diagnoses Not on filedocumented in this encounter Care Teams Enroute Controller Relationship Specialty Start Date End Date Rupali Lynn PA PCP - General Family Medicine 05/31/21 [address] [place] [address] documented as of this encounter
--- OUTSIDE RECORDS SUMMARY | 2022-01-13 08:43 | XMS_ITS | Encounter Summary ---
:1985 Author Organization [facility] [place] [address] Care Team Providers Name Role Phone Rupali Lynn Primary Care Provider Reason for Referral Consultation (Routine) - Authorized Specialty Diagnoses / Procedures Referred By Contact Refer red To Contact Dermatology Diagnoses Prurigo Rupali Lynn PA [facility] [address] [facility] [address] [place], [place] [id number] [place] [phone] Fax: Referral ID Status Reason Start Date Expiration Visits Visits Date Requested Authorized [id number] Authorized Consult, 06/01/2021 06/01/2022 6 6 Test & Treat Encounter Details Date Type Department Care Team Description 06/01/2021 Transcribe Orders eDH Incoming Referra ls Rupali Lynn PA Prurigo [phone] [address] [place], [place] [address] (Wo rk) Social History Tobacco Use Types Packs/Day Years Used Date Current Every Day Smoker Cigarettes Smokeless Tobacco: Never Used Sex Assigned at Date Recorded Not on file documented as of this encounter Plan of Treatment Scheduled Referrals Name Type Priority Associated Diagnoses Order S chedule Referral to Outpatient Referral Routine Prurigo Ordered: Plastic Surgery 06/01/2021 documented as of this encounter Visit Diagnoses Diagnosis Prurigo documented in this encounter Care Teams Surgical Dressing Maker Relationship Specialty Start Date End Date Rupali Lynn PA PCP - General Family Medicine 05/31/[address] [place] [address] documented as of this encounter
--- OUTSIDE RECORDS SUMMARY | 2022-01-13 08:43 | XMS_ITS | Encounter Summary ---
:1985 [place] [address] Care Team Providers Name Role Phone None Primary Care Provider Unavailable Reason for Visit Reason Comments Medication Management Specialty Refill Management Encounter Details Date Type Department Care Team Description 03/09/2021 Specialty Pharmacy Pharmacy at [facility] Fly Celaya, [facility] Specialty Refill [place] Management [phone] Social History Tobacco Use Types Packs/Day Years Used Date Current Every Day Smoker Cigarettes Smokeless Tobacco: Never Used Sex Assigned at Date Recorded Not on file documented as of this encounter Progress Notes Fly Celaya, [facility] - 03/09/2021 8:37 AM EST Clinical Management Plan: Refill Specialty Pharmacy Consultation; Fly Celaya [facility] Comprehensive Medication Management (CMM) Yin Toledo is a 35 y.o. (1985) female who was contacted in regard to a specialty medication refill reminder. Contact made with patient regarding Humira. A review of the medication therapy was performed. The medication was refilled as scheduled, and all medication related questions and concerns were addressed. The specialty pharmacy staff will follow up with the patient 5-7 days prior to next refill. Was a change made to the Care Plan: No Allergies and Drug intolerance: Allergies Allergen Reactions ??? Amoxicillin Hives ??? Bactrim [Sulfamethoxazole-Trimethoprim] Hives Medication Reconciliation Discrepancies (compared to [facility] med list) No Specialty Pharmacy Refill Questionnaire Refill Questionnaire 03/09/2021 What is the name of the specialty medication you are refilling? humira Are you taking any new medications? No Any new medical condition? No Any new allergies? No Any new side effects that are bothersome? No What date will you need this fill by? 03/13/2021 Adherence: Any missed doses? No Patient understands no changes to current drug regimen were made. Fly Celaya RPH 03/09/21 8:37 AM documented in this encounter Plan of Treatment Not on filedocumented as of this encounter Visit Diagnoses Not on filedocumented in this encounter Care Teams Mercury Purifier Relationship Specialty Start Date End Date None PCP - General 12/17/20 05/30/21 None documented as of this encounter
--- OUTSIDE RECORDS SUMMARY | 2022-01-13 08:43 | XMS_ITS | Encounter Summary ---
:1985 Author Organization [facility] [place] [address] Care Team Providers Name Role Phone Rupali Lynn Primary Care Provider Reason for Visit Reason Comments Medication Management Medication Refill Encounter Details Date Type Department Care Team Description 12/29/2021 Specialty Pharmacy Pharmacy at [facility] Ryanne Barboza [facility] [place] [phone] Social History Tobacco Use Types Packs/Day Years Used Date Current Every Day Smoker Cigarettes Smokeless Tobacco: Never Used Sex Assigned at Date Recorded Not on file documented as of this encounter Progress Notes Ryanne Barboza RPH - 12/29/2021 3:30 PM EDT Clinical Management Plan: Refill Specialty Pharmacy Consultation; Ryanne Barboza [facility] Comprehensive Medication Management (CMM) Yin Toledo is a 36 y.o. (1985) female who was contacted in regard to a specialty medication refill reminder. Contact made with patient regarding Taltz. A review of the medication therapy wasperformed. The medication was refilled as scheduled, and all medication related questions and concerns were addressed. The specialty pharmacy staff will follow up with the patient 5-7 days prior to next refill. Was a change made to the Care Plan: no If yes, should the medication be held: No Assessment and Recommendations: Medication Management Type of Medication Management: chronic disease management, targeted medication review Referred By: provider Recipient: beneficiary Provider: plan sponsor pharmacist Visit Type: Misc Follow-up Time Spent: 1-15 min Method of Contact: by telephone Cognitive Ability: good Cognitive Impairment Status Verified this Year: no Allergies and Drug intolerance: Allergies Allergen Reactions ??? Ciprofloxacin Nausea Only Pt stated also bad headache ??? Amoxicillin Hives ??? Bactrim [Sulfamethoxazole-Trimethoprim] Hives Medication Reconciliation Discrepancies (compared to [facility] med list) -None Specialty Pharmacy Refill Questionnaire Refill Questionnaire 12/29/2021 What is the name of the specialty medication you are refilling? Rabia Are you taking any new medications? No Please explain - Any new medical condition? No Please explain - Any new allergies? No Any missed doses since your last fill? No Please explain - Any new side effects that are bothersome? No What date will you need this fill by? 12/29/2021 Adherence: Specialty Med Adherence Patient Demonstrates Understanding of Importance of Adherence: Yes Educational Information or Adherence Tools Provided: No Patient Reported X Missed Doses in the Last Month: 0 If yes, why?: insurance Other reason for gaps in therapy: Specialty Pharmacy needed to obtain new Prior authorization Provider-Estimated Medication Adherence Level: 90-100% Adherence Tools Used: directed education Pt understands no changes to current drug regimen were made at the appointment and that [facility] is providing recommendations (summary located at top of note) for provider review and follow up. Ryanne Barboza RPH 12/29/21 3:31 PM documented in this encounter Plan of Treatment Not on filedocumented as of this encounter Visit Diagnoses Not on filedocumented in this encounter Care Teams Lead Caster Helper Relationship Specialty Start Date End Date Rupali Lynn PA PCP - General Family Medicine 05/31/21 [address] [place] [address] documented as of this encounter
--- OUTSIDE RECORDS SUMMARY | 2022-01-13 08:43 | XMS_ITS | Encounter Summary ---
:1985 Author Organization [facility] [place] [address] Care Team Providers Name Role Phone Rupali Lynn Primary Care Provider Reason for Visit Reason Comments Follow-up Consultation (Routine) - Authorized Specialty Diagnoses / Procedures Referred By Contact Refer red To Contact Dermatology Diagnoses Prurigo Rupali Lynn PA [facility] Dermatology [address] [facility] [address] [place] [address] [place] [address] Fax: Referral ID Status Reason Start Date Expiration Visits Visits Date Requested Authorized [id number] Authorized Consult, 06/01/2021 06/01/2022 6 6 Test & Treat Encounter Details Date Type Department Care Team Description 09/08/2021 Office Visit Dermatology at [facility] oriasis vulgaris; Jerman Hunter MD High risk medication use [address] [place] [phone] [facility] [place], [place] [address] Social History Tobacco Use Types Packs/Day Years Used Date Current Every Day Smoker Cigarettes Smokeless Tobacco: Never Used Sex Assigned at Date Recorded Not on file documented as of this encounter Progress Notes Lucinda Gonzalez MD - 09/08/2021 7:45 AM EDT Images from the original note were not included. DEPARTMENT OF DERMATOLOGY Medical Dermatology Clinic Provider: LUCINDA GONZALEZ MD Patient's preferred name Yin Preferred contact method for results [x]Phone []myD-H []Letter Detailed phone message OK? Yes Are there any other people with whom we may discuss your care? 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 Patient returns to clinic today for a focusedexam with the following concerns: - Patient states that her psoriasis has been doing well, although she does have some active areas onthe elbows, knees, abdomen. She continues to use topicals consistently. Ears are the worst - they are very itchy. She has not used the betamethasone in her ears.She does notes that she stopped the Humira 2 months ago. She had tried Otezla in the past, but notes she experienced extreme fatigue and justdid not feel like herself. Joints don't feel great and does note they were better on Humira. Gettingup in the morning she experiences a lot of stiffness and it takes 15-20 minutes for the stiffness togo away. Stopped the Humira because of recurrent ear infections. No infections since stopping Humira two months ago. Last visit at Dermatology: 12/18/2020 Last visit with this provider: 05/14/2020 Medications: Reviewed in eD-H Allergies: Reviewed in eD-H Skin Examination: Focused skin examination of the face, ears, upper and lower extremities, and abdomen was normal withthe exception of the findings listed below. Assessment/Plan A. Psoriasis with Psoriatic Arthritis - Thick scaly plaques on the elbows, right knee. [place], scaly plaques in the conchal bowls and ear canals. - Discussed treatment options, including topicals and biologics (Stelara) - Failed Otezla and Humira - Refill sent for Rx: augmented betamethasone 0.05% ointment: Apply to thick, scaly plaques on the arms and knees BID x 10-14 days, take 1 week off. Repeat as needed. - Start Rx: hydrocortisone 2.5% cream mixed with ketoconazole 2% cream: Apply to abdominal scar on abdomen BID 10-14 days, take 1 week off. Repeat as needed. - May apply hydrocortisone 2.5% cream twice daily as needed to the conchal bowls - Will plan to pursue alternative biologic therapy. Chart routed to pharmacy team for initiation of alternative biologic (preferrably Stelara). - Labs: CBC, CMP, and Quant-TB Gold (to be done at [facility] in [facility], faxed today) Other: ??? N/A RTC: 3 months for Stelara f/u []Note routed to editor newspaper []Recall placed in scheduling system []Appointment scheduled at checkout Scribe attestation: Sindy Guerrero and Yin Renee [facility] have performed the documentation for this encounter in the presence of and acting as a scribe for LUCINDA GONZALEZ MD. I performed the above scribed service and agree with the accuracy of the documentation in this encounter. Reviewed and signed by: LUCINDA GONZALEZ MD Dermatology [facility] documented in this encounter Plan of Treatment Scheduled Orders Name Type Priority Associated Diagnoses Order S chedule Comprehensive metabolic Lab Routine High risk medicat ion Expected: 09/08/2021, panel (non-fasting) use Expires: 03/10/2022 CBC (with Diff) Lab Routine High risk medication Expe cted: 09/08/2021, use Expires: 2021 QuantiFERON-TB Gold Lab Routine High risk medication Expected: 09/08/2021, use Expires: 2021 documented as of this encounter Visit Diagnoses Diagnosis Psoriasis vulgaris Other psoriasis High risk medication use Encounter for long-term (current) use of other medications documented in this encounter Care Teams Patent Attorney Relationship Specialty Start Date End Date Rupali Lynn PA PCP - General Family Medicine 05/31/21 [address] [place] [address] documented as of this encounter
--- OUTSIDE RECORDS SUMMARY | 2022-01-13 08:43 | XMS_ITS | Encounter Summary ---
:1985 Author Organization [facility] Address [address] [place] [address] Care Team Providers Name Role Phone Rupali Lynn Primary Care Provider Reason for Visit Reason Comments Medication Management Medication Refill Patient Education Encounter Details Date Type Department Care Team Description 11/02/2021 Specialty Pharmacy Pharmacy [place] [facility] [place] Ryanne Barboza [facility], [facility] Managemen t; [facility] Medication Refill; [place], [place] [phone] Social History Tobacco Use Types Packs/Day Years Used Date Current Every Day Smoker Cigarettes Smokeless Tobacco: Never Used Sex Assigned at Date Recorded Not on file documented as of this encounter Progress Notes Ryanne Barboza RPH - 11/02/2021 11:59 PM EDT Specialty Pharmacy Consultation; Ryanne Barboza RPH Comprehensive Medication Management (CMM) Yin Toledo Diagnosis: Psoriasis and Psoriatic Arthritis Therapy Start Date: 10/14/2021 Contact in person or via telephone:Telephone Ms. Yin Toledo is a 36 y.o. (1985) female who was contacted in regard to specialty medication. Spoke with patient regarding Taltz. A review of the medication therapy was performed. The medication was Refilled as scheduled, and all medication related questions and concerns were addressed. The specialty pharmacy staff will follow up with the patient 5-7 days prior to next refill. Is the patient willing to proceed with the Clinical Assessment? Yes Summary and Recommendations: Yin Toledo was contacted via telephone for a review of Taltz for the treatment of plaque psoriasis and psoriatic arthritis. Patient was educated on the importance of infection prevention including best practices for hand hygiene and the annual flu vaccine. Discussed the need to avoid live vaccines during treatment. Dose hold parameters were reviewed including suspected/known infection, prescribed antibiotic therapy, or scheduled surgery. Patient agrees to contact the clinic to review dose hold in these settings. Patient reports she experienced a headache with her first injection, and some redness at the injection site. We discussed taking Benadryl beforehand or applying a cold compress after the injection to help mitigate the injection site reaction. She notes that her psoriasis has almost completed cleared. She is still experiencing joint pain in her knees, hips, and wrists. Discussed with patient that it may take 3-4 months to experience the full benefit of Taltz. A review of dosing, storage, and administration was completed. Patient was educated on the dosing schedule,160 mg subcutaneously once, then 80 mg at weeks 2, 4, 6, 8, 10 and 12, then 80 mg every 4 weeks. Patient was made aware that Taltz must be stored in the refrigerator and remains stable at room temperature for 5 days if protected from light. Patient is performing proper site rotation, site sterilization, and allowing the medication to reach room temperature prior to injection. She is comfortablewith the self injection process and will be provided with a sharps container. Disposal of pens was discussed. Clinic follow-up needed: no Allergies and Drug intolerance: Allergies Allergen Reactions ??? Ciprofloxacin Nausea Only Pt stated also bad headache ??? Amoxicillin Hives ??? Bactrim [Sulfamethoxazole-Trimethoprim] Hives Problem List: Patient Active Problem List Diagnosis Code ??? Psoriasis L40.9 ??? Psoriatic arthritis L40.50 Special Dietary or Hydration Requirements: no Medication Reconciliation Discrepancies (compared to [facility] med list) no Medication List: Current Outpatient Medications Medication Sig Dispense Refill ??? ixekizumab (Taltz Autoinjector, 3 Pack,) 80 mg/mL Auto-Injector Inject the contents of two pens (160 mg) under the skin once on week 0, then inject the contents of one pen (80 mg) once on weeks 2, 4, 6, 8, 10, 12, and once every 4 weeks thereafter 3 mL 0 ??? ixekizumab (Taltz Autoinjector, 2 Pack,) 80 mg/mL Auto-Injector Inject the contents of one pen (80 mg) under the skin once on weeks 4, 6, 8, 10, 12, and once every 4 weeks thereafter 2 mL 1 ??? ixekizumab (Taltz Autoinjector) 80 mg/mL Auto-Injector Inject the contents of one pen (80 mg) under the skin once on week 12, and once every 4 weeks thereafter 1 mL 2 ??? augmented betamethasone dipropionate (Diprolene-AF) 0.05 % Ointment Apply to thick, scaly plaques on the arms and knees BID x 10-14 days, take 1 week off. Repeat as needed. 50 g 2 ??? hydrocortisone 2.5 % Cream Mix 1:1 with ketoconazole cream and apply twice daily ot the affectedareas on the abdomen for 1-2 weeks, take one week off, and repeat as needed. May also apply twice daily to the ears as needed 30 g 2 ??? ketoconazole (Nizoral) 2 % Cream Mix 1:1 with hydrocortisone cream and apply twice daily ot the affected areas on the abdomen for 1-2 weeks, take one week off, and repeat as needed. 30 g 2 ??? fluticasone propionate (Flonase) 50 mcg/actuation [place], Suspension 1 spray as needed for Rhinitis. ??? augmented betamethasone dipropionate (DIPROLENE-AF) 0.05 % Ointment APPLY TO THE AFFECTED LARGE AREA S ON KNEES AND ELBOWS ONCE DAILY NEEDED ??? BETAMETHASONE MISC by Misc.(Non-Drug; Combo Route) route. No current facility-administered medications for this visit. Most Recent Vitals: Ht Readings from Last 1 Encounters: No data found for Ht Wt Readings from Last 3 Encounters: No data found for Wt Temp Readings from Last 3 Encounters: No data found for Temp BP Readings from Last 3 Encounters: No data found for BP Pulse Readings from Last 3 Encounters: No data found for Pulse There is no height or weight on file to calculate BMI. Pertinent Lab values: Lab Results Component Value Date NA 138 02/21/2020 K 4.0 02/21/2020 CL 106 02/21/2020 CO2 23 02/21/2020 BUN 9 02/21/2020 CREATININE 0.62 (L) 02/21/2020 GLUCOSE 91 02/21/2020 CALCIUM 9.6 02/21/2020 Lab Results Component Value Date ALT 16 02/21/2020 AST 14 02/21/2020 ALKPHOS 124 (H) 02/21/2020 BILITOT 0.3 02/21/2020 ALBUMIN 4.7 02/21/2020 PROT 7.3 02/21/2020 Lab Results Component Value Date WBC 11.9 (H) 02/21/2020 HGB 13.9 02/21/2020 HCT 41.8 02/21/2020 MCV 90.1 02/21/2020 PLATELET 304 02/21/2020 No results found for: HA1C There is no immunization history on file for this patient. Assessment and Recommendations: Patient Counseling Patient informed of specialty services: Yes Patient accepted offer to debt management counselor: select all, adherence/missed doses, cost of medications/cost implications, doses and administration, possible drug/OTC drug and food interactions, possible adverse side effects and management, pharmacy contact information, lab monitoring/follow up, possible drug/Rx drug interactions, safe handling, storage, and disposal, therapeutic rationale Medication Management Summary Topics discussed: reviewed medication changes since last visit, medication safety precautions education provided, drug interaction education provided to patient, safe handling, storage, and disposal discussed, possible adverse effects and management discussed, lab monitoring and follow-up discussed, cost of medications and cost implications discussed, adherence and missed doses discussed, health goals discussed, monitoring medication discussed, over the counter products discussed, preventative care discussed, reminder to refill or brain picker medication discussed, self-monitoring discussed, timing of medications discussed, vaccination discussed, lifestyle modification education, referral needs discussed Time spent: 16-30 min Treatment Outcomes 11/03/2021 1532 Disease progression: Stable Patient Overall Status: Improved Reviewed in detail with patient: Dose appropriateness based on recommended standard dosing Current medication list including OTC medications Medication and disease problems Allergies Comorbid conditions/ Problem List Past adverse events if any Special needs of the patient including physical and cognitive limitations Goals of therapy and management strategies Warnings, precautions, and contraindications Side effects Drug-drug and drug-food interactions Administration instructions including dose, frequency and method Handling, storage, and disposal Verifying expiration dates on products before use Rotating medication inventory to use oldest product first Relevant lab data Treatments impact on disease Dose appropriateness based on recommended standard dosing schedule, including any variations from FDA approved dosing Patient verbalizes understanding and is able to read-back instructions on self-administration/injection, proper storage, drug stability, importance of adherence and management strategies, side effect avoidance and mitigation strategies, and interruptions in therapy: Yes Patient is aware a licensed pharmacist is available 24 hours a day, 7 days a week to discuss medication-related questions or concerns: Yes Patient verbalizes understanding of the common side effect profile of their medication. The patient is able to call 911 or seek urgent care if signs/symptoms of allergy or harmful adverse reactions occur: Yes Additional care/services needed: No Additional equipment/supplies required: Yes If yes, explain: Patient was sent a Sharps container with this refill Patient satisfied with care/services provided: Yes Specialty Assessment: Physical and Cognitive Assessment: Functional limitations identified: No Cognitive limitations identified: No Concern regarding orientation/memory: No Concern with reasoning/judgement: No Is patient a fall risk: No Social Assessment: Does patient have a primary customer care manager: No Does patient have an emergency contact on file: Yes Does patient need referral to social work lecturer: No Does patient need referral to advocacy group: No Home Health Assessment: Is the patient in a safe home environment?: Yes Is the patient able to store their medication as directed?: Yes Does the patient have a support network at home?: Yes Reviewed potential home safety hazards with patient: Yes Economic Assessment: Patient is agreeable to medication copay: Yes Actual Copay: $: 3 Days Supply: 28 Welcome Packet and Rights and Responsibilities: Patient provided welcome packet/rights and responsibilities: Yes Date Confirmed: 04/21/20 Confirmation: Verbal Specialty Med Adherence Patient Demonstrates Understanding of Importance of Adherence: Yes Educational Information or Adherence Tools Provided: No Patient Reported X Missed Doses in the Last Month: 0 Provider-Estimated Medication Adherence Level: 90-100% Adherence Tools Used: directed education Therapy Assessment: Current Medication Dosing/Route/Frequency: Taltz 80mg/ml - inject the contents of one pen (80mg) subcutaneously on weeks 4,6,8,10, and 12, then inject the contents of 1 pen (80mg) subcutaneously every 28 days thereafter Appropriate Therapy: Yes Effective: yes Current Affected Areas: psoriasis has almost completely cleared Improving Affected Areas: all affected areas Worsening Affected Areas: n/a Total BSA involved: n/a Recent Skin Exacerbations/Flaring: yes - prior to therapy intiation - patient is improving Recent Topical Corticosteroid Use: yes - betamethasone and hydrocortisone Relapsing/Remitting Factors: no Patient-Reported Side Effects: yes - experienced a mild headache with her first injection, mild injection site reaction (redness at injection site) Recent Infections: no Counseling: Utilizing appropriate injection technique: yes - Patient is comfortable with the self injection process Rotation of Injection Sites: Yes Room Temperature Medication at Time of Injection: Yes Patient Goals: Patient's specific desired goal: Patient would like to see improvements in her skin and joints by about 50% within 3 to 6 months of starting on Taltz without increase in infections. Measured by: symptoms as reported by patient Time-frame to meet goal: 3 to 6 months Is the patient on track to achieve goals of therapy? Yes If no, what are the barriers and action plan to reach the goal: n/a Care Plan and Interventions: Care Plan Reviewed and Approved by both Pharmacist and Patient: Yes Did Care Plan Change? No If yes: Change to plans of care based on: Patient's request: n/a Condition: n/a Response to therapy: n/a Provider request: n/a Follow-up needed: No Interventions (if applicable): no Patient experienced change in condition that affects treatment: no Patient Satisfied with Therapy: yes - Patient is happy with results so far Pharmacist follow-up needed: No Patient understands no changes to current drug regimen were made at the appointment and that [facility] is providing recommendations (summary located at top of note) for provider review and follow up. Ryanne Barboza RPH 11/03/21 3:34 PM documented in this encounter Plan of Treatment Not on filedocumented as of this encounter Visit Diagnoses Not on filedocumented in this encounter Care Teams Proced Tech Relationship Specialty Start Date End Date Rupali Lynn PA PCP - General Family Medicine 05/31/21 [address] [place] [address] documented as of this encounter
--- OUTSIDE RECORDS SUMMARY | 2022-01-13 08:43 | XMS_ITS | Encounter Summary ---
:1985 Author Organization [facility] [place] [address] Care Team Providers Name Role Phone Rupali Lynn Primary Care Provider Reason for Visit Reason Comments Specialty Refill Management Encounter Details Date Type Department Care Team Description 12/01/2021 Specialty Pharmacy Pharmacy at [facility] [place]leen [place] [phone] Social History Tobacco Use Types Packs/Day Years Used Date Current Every Day Smoker Cigarettes Smokeless Tobacco: Never Used Sex Assigned at Date Recorded Not on file documented as of this encounter Progress Notes Cornell Molina RPH - 12/01/2021 2:09 PM EDT Clinical Management Plan: Refill Specialty Pharmacy Consultation; Cornell Molina RPH Comprehensive Medication Management (CMM) Yin Toledo is a 36 y.o. (1985) female who was contacted in regard to a specialty medication refill reminder. Contact made with patient regarding taltz. A review of the medication therapy wasperformed. The medication was refilled as scheduled, and all medication related questions and concerns were addressed. The specialty pharmacy staff will follow up with the patient 5-7 days prior to next refill. Was a change made to the Care Plan: no If yes, should the medication be held: Yes Assessment and Recommendations: Medication Management Cognitive Ability: good Cognitive Impairment Status Verified this Year: no Allergies and Drug intolerance: Allergies Allergen Reactions ??? Ciprofloxacin Nausea Only Pt stated also bad headache ??? Amoxicillin Hives ??? Bactrim [Sulfamethoxazole-Trimethoprim] Hives Medication Reconciliation Discrepancies (compared to [facility] med list) -She states that she has felt sick for the last 3 days. Minor cough/ runny nose. Cough has gotten better. Still some pressure in ears and runny nose. COVID negative. I told her to hold off on taking the taltz until she feels better and to contact her PCP/ Derm teams if she still feels sick in 2 days for them to evaluate her. She is in agreement with this plan. Specialty Pharmacy Refill Questionnaire Refill Questionnaire 12/01/2021 What is the name of the specialty medication you are refilling? Taltz Are you taking any new medications? No Please explain - Any new medical condition? No Please explain - Any new allergies? No Any missed doses since your last fill? Yes Please explain - Any new side effects that are bothersome? No What date will you need this fill by? 11/28/2021 Adherence: Specialty Med Adherence Adherence Tools Used: directed education Pt understands no changes to current drug regimen were made at the appointment and that [facility] is providing recommendations (summary located at top of note) for provider review and follow up. Cornell Molina [facility] 12/01/21 2:17 PM documented in this encounter Plan of Treatment Not on filedocumented as of this encounter Visit Diagnoses Not on filedocumented in this encounter Care Teams Nuclear Medicine Officer Relationship Specialty Start Date End Date Rupali Lynn PA PCP - General Family Medicine 05/31/[address] [place] [id number] documented as of this encounter
--- OUTSIDE RECORDS SUMMARY | 2022-01-13 08:43 | XMS_ITS | Encounter Summary ---
:1985 Author Organization [facility] [place] [address] Care Team Providers Name Role Phone Rupali Lynn Primary Care Provider Reason for Visit Reason Comments Specialty Pharmacy Review Encounter Details Date Type Department Care Team Description 09/08/2021 Specialty Pharmacy Pharmacy at [facility] [place] [facility] [place] [phone] Social History Tobacco Use Types Packs/Day Years Used Date Current Every Day Smoker Cigarettes Smokeless Tobacco: Never Used Sex Assigned at Date Recorded Not on file documented as of this encounter Progress Notes Jerry Aiken - 09/08/2021 11:59 PM EDT The [facility] has completed a benefits investigation for Yin Toledo to review their eligibility to fill at [facility]. Per patient's medication list they are prescribed TALTZ AUTOINJECTOR 80 MG/ML and the medication is currently filled at the [facility]. documented in this encounter Plan of Treatment Not on filedocumented as of this encounter Visit Diagnoses Not on filedocumented in this encounter Care Teams Log Haul Operator Relationship Specialty Start Date End Date Rupali Lynn PA PCP - General Family Medicine 05/31/21 [address] [place] [address] documented as of this encounter
--- OUTSIDE RECORDS SUMMARY | 2022-01-13 08:43 | XMS_ITS | Encounter Summary ---
:1985 Author Organization [facility] [place] [address] Care Team Providers Name Role Phone Rupali Lynn Primary Care Provider Reason for Visit Reason Comments Medication Management Patient Education Encounter Details Date Type Department Care Team Description 10/06/2021 Specialty Pharmacy Pharmacy [facility] Iovry Nascimento [facility]; Patient [facility] [place] [phone] Social History Tobacco Use Types Packs/Day Years Used Date Current Every Day Smoker Cigarettes Smokeless Tobacco: Never Used Sex Assigned at Date Recorded Not on file documented as of this encounter Progress Notes Ivory Nascimento RPH - 10/06/2021 2:56 PM EDT Specialty Pharmacy Consultation; Ivory Nascimento Jhoan Comprehensive Medication Management (CMM) Yin Toledo Diagnosis: Psoriasis and Psoriatic Arthritis Therapy Start Date: TBD Contact in person or via telephone:telephone Ms. Yin Toledo is a 36 y.o. (1985) female who was contacted in regard to specialty medication. Spoke with patient regarding Taltz . A review of the medication therapy was performed. The medication was Filled as scheduled, and all medication related questions and concerns were addressed. The specialty pharmacy staff will follow up with the patient 5-7 days prior to next refill. Is the patient willing to proceed with the Clinical Assessment? Yes Summary and Recommendations: Yin Toledo was contacted via telephone for a review of Taltz for the treatment of plaque psoriasis. Patient was given [facility] contact information for any questions. Patient was educated on the Taltz warnings and precautions regarding the risk of serious infections including tuberculosis and hypersensitivity reactions. Patient denies personal history of IBD and wasmade aware of this precaution as well. Patient was educated on the importance of infection prevention including best practices for hand hygiene and the annual flu vaccine. Discussed the need to avoid live vaccines during treatment. Dose hold parameters were reviewed including suspected/known infection, prescribed antibiotic therapy, or scheduled surgery. Patient agrees to contact the clinic to reviewdose hold in these settings. Educated patient on the potential side effects of Taltz including injection site reaction, neutropenia, and infections such as URTI. Discussed with patient that it may take3-4 months to experience the full benefit of [...] 5 days if protected from light. Patient was advised on proper site rotation, site sterilization, and allowing the medication to reach room temperature prior to injection. Patient was encouraged to schedule an injection teaching appointment if they prefer to have first injection completed with medical oversight and was directed to view additional online video resources if needed. -Feels like she has IBS (un-diagnosed) Clinic follow-up needed: yes - routine follow-ups Allergies and Drug intolerance: Allergies Allergen Reactions ??? Ciprofloxacin Nausea Only Pt stated also bad headache ??? Amoxicillin Hives ??? Bactrim [Sulfamethoxazole-Trimethoprim] Hives Problem List: Patient Active Problem List Diagnosis Code ??? Psoriasis L40.9 ??? Psoriatic arthritis L40.50 Special Dietary or Hydration Requirements: no Medication Reconciliation Discrepancies (compared to [facility] med list) -none Medication List: Current Outpatient Medications Medication Sig [...] 2 ??? fluticasone propionate (Flonase) 50 mcg/actuation [place], Suspension 1 spray as needed for Rhinitis. [...] specialty services: Yes Patient accepted offer to correctional classification counselor: adherence/missed doses, cost of medications/cost implications, doses and administration, possible drug/OTC drug and food interactions, possible adverse side effects and management, pharmacy contact information, lab monitoring/follow up, possible drug/Rx drug interactions, safe handling, storage, and disposal, therapeutic rationale Medication Management Summary Topics discussed: reviewed medication changes since last visit, medication safety precautions education provided, safe handling, storage, and disposal discussed, possible adverse effects and management discussed, lab monitoring and follow-up discussed, cost of medications and cost implications discussed, adherence and missed doses discussed, health goals discussed, monitoring medication discussed, over the counter products discussed, preventative care discussed, reminder to refill or pickle sorter medication discussed, self-monitoring discussed, start medication discussed, timing of medications discussed, vaccination discussed, lifestyle modification education, referral needs discussed Time spent: 16-30 min Treatment Outcomes 10/06/2021 1512 Disease progression: Stable Patient Overall Status: Stable Reviewed in detail with patient: Dose appropriateness [...] Additional care/services needed: No Additional equipment/supplies required: No Patient satisfied with care/services provided: Yes Specialty Assessment: Physical and Cognitive Assessment: Functional limitations identified: No Cognitive limitations identified: No Concern regarding orientation/memory: No Concern with reasoning/judgement: No Is patient a fall risk: No Social Assessment: Does patient have a primary acute care registered nurse: No Does patient have an emergency contact on file: Yes Does patient need referral to social work manager: No Does patient need referral to advocacy [...] Confirmed: 04/21/20 Confirmation: Verbal Specialty Med Adherence Adherence Tools Used: directed education Therapy Assessment: Current Medication Dosing/Route/Frequency: Taltz 80mg/mL pen Inject 160mg under the skin on week 0, then inject 2,4,6,8,10, and 12, then every 4 weeks thereafter Appropriate Therapy: Yes Current Affected Areas: elbows, knees, abdomen, ears Total BSA involved: unknown Recent Skin Exacerbations/Flaring: yes - currently flaring Recent Topical Corticosteroid Use: yes - betamethasome and hydrocortisone Relapsing/Remitting Factors: no Diagnosis of Psoriatic Arthritis: Yes Patient's Problems/Needs: none Expected Outcome: patient would like to see improvements without increase in infections Patient's goals: Patient's specific desired goal: Patient would like to see improvements in her skin and joints by about 50% within 3 to 6 months of starting on Taltz without increase in infections. Measured by: symptoms as reported by patient Time-frame to meet goal: 3 to 6 months Monitoring requirements for prescribed medication: Signs and symptoms of infection, TB screening, and signs/symptoms of IBD Care Plan Reviewed and Approved by both Pharmacist and Patient: Yes Interventions (if applicable): No Pharmacist follow-up needed: Yes Patient understands no changes to current drug regimen were made at the appointment and that [facility] is providing recommendations (summary located at top of note) for provider review and follow up. Ivory Nascimento RPH 10/06/21 3:13 PM documented in this encounter Plan of Treatment Not on filedocumented as of this encounter Visit Diagnoses Not on filedocumented in this encounter Care Teams Quilting Supervisor Relationship Specialty Start Date End Date Rupali Lynn PA PCP - General Family Medicine 05/31/[address] [place] [id number] documented as of this encounter
--- OUTSIDE RECORDS SUMMARY | 2022-01-13 08:43 | XMS_ITS | Encounter Summary ---
:1985 Author Organization [facility] [place] [address] Care Team Providers Name Role Phone None Primary Care Provider Unavailable Encounter Details Date Type Department Care Team Description 01/29/[address] [facility] Celi Gonzalez MD [address] [facility] [place] [address] [facility] [address]-[facility] [phone] [place], [place] [address] (Wo rk) Social History Tobacco Use Types Packs/Day Years Used Date Current Every Day Smoker Cigarettes Smokeless Tobacco: Never Used Sex Assigned at Date Recorded Not on file documented as of this encounter Plan of Treatment Not on filedocumented as of this encounter Visit Diagnoses Not on filedocumented in this encounter Care Teams Quality Assurance Engineer Relationship Specialty Start Date End Date None PCP - General 12/17/20 05/30/21 None documented as of this encounter
--- OUTSIDE RECORDS SUMMARY | 2022-01-13 08:43 | XMS_ITS | Encounter Summary ---
:1985 Author Organization [facility] [place] [address] Care Team Providers Name Role Phone Rupali Lynn Primary Care Provider Encounter Details Date Type Department Care Team Description 10/08/2021 Telephone Dermatology at [facility] Celi Butler MD [address] [facility] [place] [address] [facility] [phone] [place], [place] [address] (Wo rk) Social History Tobacco Use Types Packs/Day Years Used Date Current Every Day Smoker Cigarettes Smokeless Tobacco: Never Used Sex Assigned at Date Recorded Not on file documented as of this encounter Miscellaneous Notes Telephone Encounter - Yin Renee CMA - 10/08/2021 11:30 AM EDT Labs from 09/26/2021 (CBC, CMP, and Quant-gold) reviewed by Dr. Gonzalez. Labs okay to start Taltz as planned per Dr. Gonzalez documented in this encounter Plan of Treatment Not on filedocumented as of this encounter Visit Diagnoses Not on filedocumented in this encounter Care Teams Human Resources Benefits Assistant Relationship Specialty Start Date End Date Rupali Lynn PA PCP - General Family Medicine 05/31/21 [address] [place], [place] [address] documented as of this encounter
--- OUTSIDE RECORDS SUMMARY | 2022-01-13 08:43 | XMS_ITS | Encounter Summary ---
:1985 Author Organization [facility] [place] [address] Care Team Providers Name Role Phone None Primary Care Provider Unavailable Encounter Details Date Type Department Care Team Description 12/23/2020 Telephone Dermatology at [facility] Celi Gonzalez MD [address] [place] [address] [facility] [phone] [place], [place] [address] (Wo rk) Social History Tobacco Use Types Packs/Day Years Used Date Current Every Day Smoker Cigarettes Smokeless Tobacco: Never Used Sex Assigned at Date Recorded Not on file documented as of this encounter Miscellaneous Notes Telephone Encounter - Nadine Fuentes - 01/05/2021 10:28 AM EDT I was unable to reach Yin Toledo I have put in a reminder to send her a letter to schedule. Telephone Encounter - Nadine Fuentes - 12/23/2020 10:16 AM EDT I tried calling Yin Toledo to schedule an apt for 3 month follow up for psoriasis follow up with Dr. Gonzalez but was not able to leave a VM. Telephone Encounter - Nadine Fuentes - 12/23/2020 10:16 AM EDT ----- Message from Jacinta Reynaga RN sent at 12/18/2020 2:45 PM EDT ----- Dr. Gonzalez patient. 3 month follow up for psoriasis follow up documented in this encounter Plan of Treatment Not on filedocumented as of this encounter Visit Diagnoses Not on filedocumented in this encounter Care Teams [employer] Relationship Specialty Start Date End Date None PCP - General 12/17/20 05/30/21 None documented as of this encounter
--- OUTSIDE RECORDS SUMMARY | 2022-01-13 08:43 | XMS_ITS | Encounter Summary ---
:1985 Author Organization [facility] [place] [address] Care Team Providers Name Role Phone Rupali Lynn Primary Care Provider Encounter Details Date Type Department Care Team Description [facility] [address] [facility] [place] [address] [facility] [phone] [place], [place] [address] (Wo rk) Social History Tobacco Use Types Packs/Day Years Used Date Current Every Day Smoker Cigarettes Smokeless Tobacco: Never Used Sex Assigned at Date Recorded Not on file documented as of this encounter Miscellaneous Notes Telephone Encounter - Socorro Taveras - 09/23/2021 1:26 PM EDT Cover my meds called and wants to update us on the BIN #[id number] for PA. If you need any further help with PA. Call Cover my meds at [phone]. Ref perez#[id number] r documented in this encounter Plan of Treatment Not on filedocumented as of this encounter Visit Diagnoses Not on filedocumented in this encounter Care Teams Naphthol Soaping Machine Operator Relationship Specialty Start Date End Date Rupali Lynn PA PCP - General Family Medicine 05/31/[address] [place] [phone] documented as of this encounter
--- OUTSIDE RECORDS SUMMARY | 2022-01-13 08:43 | XMS_ITS | Encounter Summary ---
:1985 Author Organization [place] [address] Care Team Providers Name Role Phone Rupali Lynn Primary Care Provider Reason for Visit Reason Comments Prior Authorization Taltz 80mg/ml soaj Encounter Details Date Type Department Care Team Description 10/06/2021 Specialty Pharmacy Pharmacy at [facility] Tierra Earl Prior Authorization [facility] (Taltz 80 mg/ml [place]) [place] [id number] Social History Tobacco Use Types Packs/Day Years Used Date Current Every Day Smoker Cigarettes Smokeless Tobacco: Never Used Sex Assigned at Date Recorded Not on file documented as of this encounter Progress Notes Tierra Earl M - 10/06/2021 9:33 AM EDT [facility], Medication Prior Authorization Submission Patient: Yin Toledo Patient : 1985 Patient Address: [address] [place] [address] (home) Medication Name: TALTZ AUTOINJECTOR 80 MG/ML SUBCUTANEOUS Medication ID: [id number] Subscriber Insurance: [place] Subscriber Insurance Comment: Phone: Fax: Physician: LUCINDA GONZALEZ Physician Comment: Sent Via: [facility] Chambers: [id number] Ref/Case/PA#: Medication Strength Frequency Requested: Inject the contents of two pens (160 mg) under the skin once on week 0, then inject the contents of one pen (80 mg) once on weeks 2, 4, 6, 8, 10, 12, and once every 4 weeks thereafter Qty/Day Supply: 06/08 New Start: New to Therapy Diagnosis & ICD-10 Code: Psoriasis vulgaris L40.0 Patient Notified: Left Voicemessage Submission Notes: None Tierra Earl 10/06/21 9:35 AM Tierra Earl - 10/06/2021 9:33 AM EDT [facility], Prior Authorization Approval Medication Name: TALTZ AUTOINJECTOR 80 MG/ML SUBCUTANEOUS Medication ID: [id number] Approval Dates: 10/06/2021 to 12/26/2021 Insurance requirements/notes: None Other Notes: None Case/Reference #: [id number], [id number] Approval notification Received via: Fax Copay: $3.00 Copay assistance: Copay Notes: Insurance mandated Pharmacy: [facility] Fill[facility] at [facility]: Yes Pharmacy staff will be reaching out to the patient to inform them of their medication's approval by their insurance. If applicable, a pharmacist will speak with the patient to offer our specialty pharmacy services and to arrange delivery of their medication. Tierra Earl 10/06/21 1:35 PM documented in this encounter Plan of Treatment Not on filedocumented as of this encounter Visit Diagnoses Not on filedocumented in this encounter Care Teams Sanitation Technician Relationship Specialty Start Date End Date Rupali Lynn PA PCP - General Family Medicine 05/31/[address] [place] [phone] documented as of this encounter
--- OUTSIDE RECORDS SUMMARY | 2022-01-13 08:43 | XMS_ITS | Clinical Summary ---
:1985 Author Organization [facility] [place] [address] Care Team Providers Name Role Phone Rupali Lynn Primary Care Provider Allergies Active Allergy Reactions Severity Noted Date Comments Amoxicillin Hives 04/21/2020 Sulfamethoxazole-Trimethoprim Hives 04/21/2020 Ciprofloxacin Nausea Only Medium 06/16/2021 Pt stated also bad headache Medications Medication Sig Dispensed Refills Start Date End Date Status BETAMETHASONE MISC by Mis.(Non-Drug; 0 Active Combo Route) route. augmented APPLY TO THE 0 06/14/2020 Active betamethasone AFFECTED LARGE AREA dipropionate S ON KNEES AND (DIPROLENE-AF) 0.05 ELBOWS ONCE DAILY % Ointment NEEDED fluticasone 1 spray as needed 0 Active propionate (Flonase) for Rhinitis. 50 mcg/actuation [place], Suspension augmented Apply to thick, 50 g 2 09/08/2021 Act kenny betamethasone scaly plaques on the dipropionate arms and knees BID x (Diprolene-AF) 0.05 10-14 days, take 1 % week off. Repeat as OintmentIndications: needed. Psoriasis vulgaris hydrocortisone 2.5 % Mix 1:1 with 30 g 2 09/08/2021 Active CreamIndications: ketoconazole cream Psoriasis vulgaris and apply twice daily ot the affected areas on the abdomen for 1-2 weeks, take one week off, and repeat as needed. May also apply twice daily to the ears as needed ketoconazole Mix 1:1 with 30 g 2 09/08/2021 Act kenny (Nizoral) 2 % hydrocortisone cream CreamIndications: and apply twice Psoriasis vulgaris daily ot the affected areas on the abdomen for 1-2 weeks, take one week off, and repeat as needed. ixekizumab (Taltz Inject the contents 3 mL 0 10/02/2021 Active Autoinjector, 3 of two pens (160 mg) Pack,) 80 mg/mL under the skin once Auto-Injector on week 0, then inject the contents of one pen (80 mg) once on weeks 2, 4, 6, 8, 10, 12, and once every 4 weeks thereafter ixekizumab (Taltz Inject the contents 2 mL 1 10/02/2021 Active Autoinjector, 2 of one pen (80 mg) Pack,) 80 mg/mL under the skin once Auto-Injector on weeks 4, 6, 8, 10, 12, and once every 4 weeks thereafter ixekizumab (Taltz Inject the contents 1 mL 2 10/02/2021 Active Autoinjector) 80 of one pen (80 mg) mg/mL Auto-Injector under the skin once on week 12, and once every 4 weeks thereafter Active Problems Problem Noted Date Psoriasis 04/22/2020 Psoriatic arthritis 04/22/2020 Encounters Date Type Specialty Care Team Description 12/30/2021 Specialty Pharmacy Pharmacy Jerry Aiken ecialty Pharmacy Review 12/29/2021 Specialty Pharmacy Pharmacy Ryanne Barboza Jhoan Medication Management; Medication Refi ll 12/29/2021 Specialty Pharmacy Pharmacy Batsheva Yuan Liana or Authorization (Taltz 80mg/ml SOAJ) 12/01/2021 Specialty Pharmacy Pharmacy Colleen Ramos, Maria Esther pecialty Refill SHUTTLE FINAL INSPECTOR Management 11/02/2021 Specialty Pharmacy Pharmacy Ryanne Barboza Jhoan Medication Management; Medication Refi ll; Patient Educati on from Last 3 Months Social History Tobacco Use Types Packs/Day Years Used Date Current Every Day Smoker Cigarettes Smokeless Tobacco: Never Used Sex Assigned at Date Recorded Not on file Plan of Treatment Health Maintenance Due Date Last Done Comments Covid-19 Vaccine (#1) 1985 Pneumococcal Vaccine: At-Risk 5-64yrs (1 - PCV) 1993 HIV screen 2005 Tdap adult 2006 Tetanus vaccine 2006 HPV test 2017 PAP Smear 2017 Influenza (Flu) vaccine (1 of 1 - Influenza standard 11/12/2021 series) Hepatitis C Screening Completed 02/21/2020 Procedures Procedure Name Priority Date/Time Associated Diagnosis Comme nts LAB SCAN 10/20/2021 12:00 AM Results for this EDT procedure are i n the results section . LAB SCAN 10/20/2021 12:00 AM Results for this EDT procedure are i n the results section . from Last 3 Months Results SCAN DOC: LAB (10/20/2021 12:00 AM EDT)Only the most recent of2 resultswithin the time period is included. Narrative This result has an attachment that is no t available. Unknown MEDIA MGR SCAN EXT ORDR/RSLT from Last 3 Months Insurance Payer Benefit Plan / Subscriber ID Effective Dates Phone Addre ss Type Group [place]ID [place] [id number] 2020-Pres [phone] [address] PRIMARY CARE ent [address] [place], [place] [phone] Care Teams Needle Punch Operator Relationship Specialty Start Date End Date Rupali Lynn PA PCP - General Family Medicine 05/31/21 [address] [place], [place] [phone]
--- OUTSIDE RECORDS SUMMARY | 2022-01-13 08:43 | XMS_ITS | Encounter Summary ---
:1985 Author Organization [facility] Address [address] [place] [address] Care Team Providers Name Role Phone Rupali Lynn Primary Care Provider Reason for Visit Reason Comments Medication Management Patient Education Specialty Refill Management Encounter Details Date Type Department Care Team Description 06/16/2021 Specialty Pharmacy Pharmacy at [facility] Sinan Hurtado [facility] J[facility] Staples Jhoan Managemen t; Patient Drive Education; Specialty [place], [place] Refill Manageme [phone] Social History Tobacco Use Types Packs/Day Years Used Date Current Every Day Smoker Cigarettes Smokeless Tobacco: Never Used Sex Assigned at Date Recorded Not on file documented as of this encounter Progress Notes Sinan Hurtado RPH - 06/16/2021 10:24 AM EDT Specialty Pharmacy Consultation; Sinan Hurtado RPH Comprehensive Medication Management (CMM) Yin Toledo Diagnosis: Psoriasis + PsA Therapy Start Date: 05/25/20 Contact in person or via telephone:telephone Ms. Yin Toledo is a 36 y.o. (1985) female who was contacted in regard to specialty medication. Spoke with patient regarding humira. A review of the medication therapy was performed. The medication was Refilled as scheduled, and all medication related questions and concerns were addressed. The specialty pharmacy staff will follow up with the patient 5-7 days prior to next refill. Is the patient willing to proceed with the Clinical Assessment? Yes Summary and Recommendations: Today, I spoke with Yin Toledo regarding her refill and 6 month follow up for her humira. We wentover her new medications (Cipro + prednisone) that was recently added due to her ear infection. She stopped the Cipro due to possible adverse reaction of REGALADO and NA but finished course of predisone. Thenurse stated possible allergy to Cipro, which has been added to her allergy list. She has another appt for her ear infection 06/18 for possible new abx treatment, but since she stated she can still hear fluids in her ear, and pain, I stated she should seek urgent care today to get it re-evaluated to prevent any worsening infection. Stated to pt she can skip the next dose if ear infection has worsened to help ears heal faster. She will try today, after work to go to urgent care near her. She denied any missed doses with the humira but has been experiencing headaches and feeling lethargic but denies injection site reactions. She bringing the pen to room temperature about 30 minutes prior to injection and rotating sites. At this time, she does not have issues or questions with injectiontechnique. She feels that humira has not been helping her condition like it was before when she started. She noticed more plaques coming back and her joints aching again. She noticed her elbows and knees have been flaring up and her hips, knees, and ankles (joints) have been aching more often. She said stated the ER doctor noticed that inside her ears are scaly as well when she went for her ear infection. She has not been using her topical creams because she misplaced them. I will contact provider to see if she can be seen sooner than August, and to get her more topical steriods for her flare ups. She knows to call the Specialty Pharmacy for any questions or concerns that may arise. We will continue to follow up with her for refills, 6 month follow up consultations, and as needed. Clinic follow-up needed: yes - will route provider to this Allergies and Drug intolerance: Allergies Allergen Reactions ??? Amoxicillin Hives ??? Bactrim [Sulfamethoxazole-Trimethoprim] Hives Problem List: Patient Active Problem List Diagnosis Code ??? Psoriasis L40.9 ??? Psoriatic arthritis L40.50 Special Dietary or Hydration Requirements: no Medication Reconciliation Discrepancies (compared to [facility] med list) yes - Cipro and Prednisone Medication List: Current Outpatient Medications Medication Sig Dispense Refill ??? Humira Pen 40 mg/0.8 mL Pen Injector Kit Inject 0.8 mLs subcutaneously every 14 days. 1 kit 11 ??? adalimumab (Humira,CF, Pen) 40 mg/0.4 mL Pen Injector Kit Inject 40 mg subcutaneously every 14 days. 1 kit 11 ??? fluticasone propionate (Flonase) 50 mcg/actuation [place], Suspension 1 spray as needed for Rhinitis. ??? augmented betamethasone dipropionate (DIPROLENE-AF) 0.05 % Ointment APPLY TO THE AFFECTED LARGE AREA S ON KNEES AND ELBOWS ONCE DAILY NEEDED ??? BETAMETHASONE MISC by Misc.(Non-Drug; Combo Route) route. ??? Humira Pen Tpon-Rouzqj-Shov HS 40 mg/0.8 mL Pen Injector Kit Inject 80mg subcutaneously on day 1, followed by 40mg every 14 days thereafter starting on day 8. 4 kit 6 No current facility-administered medications for this visit. [...] specialty services: Yes Patient accepted offer to marriage and family counselor: adherence/missed doses, doses and administration, pharmacy contact information, possible drug/OTC drug and food interactions, safe handling, storage, and disposal, therapeutic rationale, possible drug/Rx drug interactions, possible adverse side effects and management, lab monitoring/follow up, cost of medications/cost implications Medication Management Summary Topics discussed: reviewed medication changes since last visit, medication safety precautions education provided, drug interaction education provided to patient, safe handling, storage, and disposal discussed, possible adverse effects and management discussed, lab monitoring and follow-up discussed, cost of medications and cost implications discussed, adherence and missed doses discussed, monitoring medication discussed, preventative care discussed, recommendations to doctor discussed, reminder to refill or pharmacy picking tech medication discussed, self-monitoring discussed, timing of medications discussed, referral needs discussed Number of adverse drug events identified: 0 Time spent: 16-30 min Treatment Outcomes 06/16/2021 1029 Disease progression: Stable Patient Overall Status: Stable [...] adverse reactions occur: Yes Additional care/services needed: Yes If yes, explain: follow-up with provider Additional equipment/supplies required: No Patient satisfied with care/services provided: Yes Specialty Assessment: Physical and Cognitive Assessment: Functional limitations identified: No Cognitive limitations identified: No Concern regarding orientation/memory: No Concern with reasoning/judgement: No Is patient a fall risk: No Social Assessment: Does patient have a primary morning caregiver: No Does patient have an emergency contact on file: Yes Does patient need referral to social services counselor: No Does patient need referral to advocacy [...] packet/rights and responsibilities: Yes Date Confirmed: 04/21/20 Specialty Med Adherence Patient Demonstrates Understanding of Importance of Adherence: Yes Educational Information or Adherence Tools Provided: Yes Patient Reported X Missed Doses in the Last Month: 0 Provider-Estimated Medication Adherence Level: 90-100% Adherence Tools Used: directed education Therapy Assessment: Current Medication Dosing/Route/Frequency: humira pen 40 mg/0.8 ml 1 pen SQ q 14 days Appropriate Therapy: Yes Effective: no per patient Current Affected Areas: skins of elbow and knees, possible inside ear, joints: hips, knees, ankles Improving Affected Areas: behind ear Worsening Affected Areas: elbows and knees Total BSA involved: n/a Recent Skin Exacerbations/Flaring: yes - will route provider Recent Topical Corticosteroid Use: no Relapsing/Remitting Factors: no ?? Patient-Reported Side Effects: yes - headache, lethargic Recent Infections: yes - ear infection, ongoing Counseling: Utilizing appropriate injection technique: yes - pt had no questions at this time Rotation of Injection Sites: Yes Room Temperature Medication at Time of Injection: Yes Patient Goals: Patient's specific desired goal: decrease plaques on her knees and elbows and decrease joint pain inhips, knees and ankles Measured by: joint pain and BSA Time-frame to meet goal: 3-6 months Is the patient on track to achieve goals of therapy? No If no, what are the barriers and action plan to reach the goal: pt believes rishi is not working well for her Care Plan and Interventions: Care Plan Reviewed and Approved by both Pharmacist and Patient: Yes Did Care Plan Change? No If yes: Change to plans of care based on: Patient's request: no Condition: no Response to therapy: no Provider request: no Follow-up needed: Yes Interventions (if applicable): no Patient experienced change in condition that affects treatment: no Patient Satisfied with Therapy: no Pharmacist follow-up needed: Yes Patient understands no changes to current drug regimen were made at the appointment and that [facility] is providing recommendations (summary located at top of note) for provider review and follow up. Sinan Hurtado RPH 06/16/21 10:30 AM documented in this encounter Plan of Treatment Not on filedocumented as of this encounter Visit Diagnoses Not on filedocumented in this encounter Care Teams Job Interviewer Relationship Specialty Start Date End Date Rupali Lynn PA PCP - General Family Medicine 05/31/[address] [place] [id number] documented as of this encounter
--- OUTSIDE RECORDS SUMMARY | 2022-01-13 08:43 | XMS_ITS | Encounter Summary ---
:1985 Author Organization [facility] [place] [address] Care Team Providers Name Role Phone Rupali Lynn Primary Care Provider Reason for Visit Reason Comments Specialty Refill Management Encounter Details Date Type Department Care Team Description 07/20/2021 Specialty Pharmacy Pharmacy at [facility] Ivory Nascimento [place] [phone] Social History Tobacco Use Types Packs/Day Years Used Date Current Every Day Smoker Cigarettes Smokeless Tobacco: Never Used Sex Assigned at Date Recorded Not on file documented as of this encounter Progress Notes Ivory Nascimento Jhoan - 07/20/2021 11:48 AM EDT Clinical Management Plan: Refill Specialty Pharmacy Consultation; Ivory Nascimento [facility] Comprehensive Medication Management (CMM) Yin Toledo [...] [Sulfamethoxazole-Trimethoprim] Hives Medication Reconciliation Discrepancies (compared to [facility] med list) No Specialty Pharmacy Refill Questionnaire Refill Questionnaire 07/20/2021 What is the name of the specialty medication you are refilling? Humira Are you taking any new medications? No Please explain - Any new medical condition? No Please explain - Any new allergies? No Any new side effects that are bothersome? No What date will you need this fill by? 08/04/2021 Adherence: Any missed doses? No Patient understands no changes to current drug regimen were made. Ivory Nascimento RPH 07/20/21 11:52 AM documented in this encounter Plan of Treatment Not on filedocumented as of this encounter Visit Diagnoses Not on filedocumented in this encounter Care Teams Junior Software Developer Relationship Specialty Start Date End Date Rupali Lynn PA PCP - General Family Medicine 05/31/21 [address] [place] [address] documented as of this encounter
--- OUTSIDE RECORDS SUMMARY | 2022-01-13 08:43 | XMS_ITS | Encounter Summary ---
:1985 Author Organization [facility] [place] [address] Care Team Providers Name Role Phone None Primary Care Provider Unavailable Reason for Visit Reason Comments Prior Authorization humira pen 40mg/0.8ml pnkt Encounter Details Date Type Department Care Team Description 03/09/2021 Specialty Pharmacy Pharmacy at [facility] Tierra Earl Prior Authorization [facility] (humira p [address] Drive 40mg/0.8ml pnkt) [place] [phone] Social History Tobacco Use Types Packs/Day Years Used Date Current Every Day Smoker Cigarettes Smokeless Tobacco: Never Used Sex Assigned at Date Recorded Not on file documented as of this encounter Progress Notes Tierra Earl M - 03/09/2021 11:13 AM EST [facility], Medication Prior Authorization Submission Patient: Yin Toledo Patient : 1985 Patient Address: [address] [address] (home) Medication Name: HUMIRA PEN 40 MG/0.8 ML SUBCUTANEOUS KIT Medication ID: [id number] Subscriber Insurance: [place] Medicaid Subscriber Insurance Comment: Phone: Fax: Physician: LUCINDA PRICE Physician Comment: Sent Via: [facility] Chambers: [id number] Ref/Case/PA#: Medication Strength Frequency Requested: INJECT THE CONTENTS OF ONE PEN (40 MG) SUBCUTANEOUSLY ONCE EVERY 14 DAYS Qty/Day Supply: 05/11 New Start: Renewal Diagnosis & ICD-10 Code: Psoriasis L40.9 Patient Notified: No Submission Notes: None Tierra Earl 03/09/21 11:15 AM Tierra Earl - 03/09/2021 11:13 AM EST [facility], Prior Authorization Approval Medication Name: HUMIRA PEN 40 MG/0.8 ML SUBCUTANEOUS KIT Medication ID: [id number] Approval Dates: 03/09/2021 to 10/08/2021 Insurance requirements/notes: None Other Notes: None Case/Reference #: [id number] Approval notification Received via: Fax Copay: $3.00 Copay assistance: Copay Notes: Insurance mandated Pharmacy: [facility] Fillable at [facility]: Yes Pharmacy staff will be reaching out to the patient to inform them of their medication's approval by their insurance. If applicable, a pharmacist will speak with the patient to offer our specialty pharmacy services and to arrange delivery of their medication. Tierra Earl 03/09/21 3:43 PM documented in this encounter Plan of Treatment Not on filedocumented as of this encounter Visit Diagnoses Not on filedocumented in this encounter Care Teams Ase Certified Technician Relationship Specialty Start Date End Date None PCP - General 12/17/20 05/30/21 None documented as of this encounter
--- OUTSIDE RECORDS SUMMARY | 2022-01-13 08:43 | XMS_ITS | Encounter Summary ---
:1985 Author Organization [place] [address] Care Team Providers Name Role Phone Rupali Lynn Primary Care Provider Reason for Visit Reason Comments Prior Authorization Stelara 45mg/mL SOSY Encounter Details Date Type Department Care Team Description 09/29/2021 Specialty Pharmacy Pharmacy at [facility] Attlia Sung Prior Authorization [facility] (Stelara 45mg/mL SOSY) [place] [phone] Social History Tobacco Use Types Packs/Day Years Used Date Current Every Day Smoker Cigarettes Smokeless Tobacco: Never Used Sex Assigned at Date Recorded Not on file documented as of this encounter Progress Notes Attila Sung P - 09/29/2021 9:59 AM EDT [facility], Medication Prior Authorization Submission Patient: Yin Toledo Patient : 1985 Patient Address: [address] [place] [address] (home) Medication Name: STELARA 45 MG/0.5 ML SUBCUTANEOUS SYRINGE Medication ID: [id number] Subscriber Insurance: [place] Medicaid Subscriber Insurance Comment: Fax: Physician: LUCINDA GONZALEZ Physician Comment: Sent Via: Fax Chambers: Ref/Case/PA#: Medication Strength Frequency Requested: Stelara 45mg/mL SOSY. Inject the contents of one syringe (45mg) SQ at week 0 and 4, then inject the contents of one syringe (45mg) SQ every 12 weeks thereafter. Qty/Day Supply: 04/10 New Start: New to Therapy Diagnosis & ICD-10 Code: Psoriasis Vulgaris L40.0 Patient Notified: Yes Submission Notes: None Attila Sung 09/29/21 10:02 AM Attila Sung - 09/29/2021 9:59 AM EDT [facility], Prior Authorization Denial Medication Name: STELARA 45 MG/0.5 ML SUBCUTANEOUS SYRINGE Medication ID: [id number] Case/Reference # : [id number] Denial Summary: Prescriber must provide a clinically valid reason why both Humira and Taltz cannot be used. Patient has tried Humira. Patient Notified of Denial: No Additional Information from insurance carrier. Please see below: None For any questions relating to this denial please reach out directly to your section's specialty pharmacist, or the specialty pharmacy team at [facility] Attila Sung 09/29/21 12:09 PM documented in this encounter Plan of Treatment Not on filedocumented as of this encounter Visit Diagnoses Not on filedocumented in this encounter Care Teams Cops Relationship Specialty Start Date End Date Rupali Lynn PA PCP - General Family Medicine 05/31/21 [address] [place] [address] documented as of this encounter
--- OUTSIDE RECORDS SUMMARY | 2022-01-13 08:43 | XMS_ITS | Encounter Summary ---
:1985 Author Organization [facility] [place] [address] Care Team Providers Name Role Phone None Primary Care Provider Unavailable Reason for Visit Reason Comments Specialty Refill Management Encounter Details Date Type Department Care Team Description 05/15/2021 Specialty Pharmacy Pharmacy at [place] Ivory Nascimento, [place] [phone] Social History Tobacco Use Types Packs/Day Years Used Date Current Every Day Smoker Cigarettes Smokeless Tobacco: Never Used Sex Assigned at Date Recorded Not on file documented as of this encounter Progress Notes Ivory Nascimento RPH - 05/15/2021 1:56 PM EST Clinical Management Plan: Refill Specialty Pharmacy Consultation; Ivory Nascimento Jhoan Comprehensive [...] [Sulfamethoxazole-Trimethoprim] Hives Medication Reconciliation Discrepancies (compared to [facility] med list) No Specialty Pharmacy Refill Questionnaire Refill Questionnaire 05/15/2021 What is the name of the specialty medication you are refilling? Humira Are you taking any new medications? No Any new medical condition? No Any new allergies? No Any new side effects that are bothersome? No What date will you need this fill by? 05/22/2021 Adherence: Any missed doses? No Patient understands no changes to current drug regimen were made. Ivory Nascimento RPH 05/15/21 1:58 PM documented in this encounter Plan of Treatment Not on filedocumented as of this encounter Visit Diagnoses Not on filedocumented in this encounter Care Teams Certified Control Systems Technician Relationship Specialty Start Date End Date None PCP - General 12/17/20 05/30/21 None documented as of this encounter
--- OUTSIDE RECORDS SUMMARY | 2022-01-13 08:43 | XMS_ITS | Encounter Summary ---
:1985 Author Organization [facility] [place] [address] Care Team Providers Name Role Phone None Primary Care Provider Unavailable Reason for Visit Reason Comments Psoriasis Encounter Details Date Type Department Care Team Description 12/18/2020 TH Visit Dermatology at [facility] Lorenzo Aleman MD [facility] [address] [place] [address] Psoriasis; (TeleHealth) [facility]ly [facility] Jacinta Reynaga RN High risk medication use; 20 [address] Psoriatic arthritis; [place], [place] Injection site reaction, subsequent encounter [id number] Social History Tobacco Use Types Packs/Day Years Used Date Current Every Day Smoker Cigarettes Smokeless Tobacco: Never Used Sex Assigned at Date Recorded Not on file documented as of this encounter Progress Notes Jerardo Aleman MD - 12/18/2020 2:00 PM EDT Images from the original note were not included. 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 and here for the following: ??? History of psoriasis with psoriatic arthritis currently treating with adalimumab with overall improvement -i.e., less joint stiffness and fewer cutaneous plaques - except a persistent but asymptomatic scaly area on her right knee. Currently, not using topical steroid. Tolerating injections well; no stinging reaction with the citrate free formula. Review of Systems: Significant for no pertinent and acute changes in constitutional, other skin, respiratory, GI, neurological, musculoskeletal systems upon specific queries. Antecedent History: History of scalp and plaque psoriasis complicated by psoriatic arthritis since 2004. Previously treated with OTC personal care products and NSAIDs, ultra potent topical steroids apremilast (stopped secondary to fatigue) and started on adalimumab June 2020. Never been biopsied. Medications: Reviewed in [facility]D-[facility] Allergies: Reviewed in [facility] Skin Examination Standby: Jacinta Reynaga RN Well developed, well-nourished in no apparent distress, alert and oriented to time, person, place and situation. Focused examination of the skin of the face hands and right knee significant for the following: ??? Erythematous pink plaque with overlying white scale covering the right knee Laboratory Results Reviewed May 2020 CBC and LFTs - normal Component Latest Ref Rng & Units 02/21/2020 Glucose Lvl 65 - 199 mg/dL 91 BUN 8 - 18 mg/dL 9 Creatinine 0.70 - 1.20 mg/dL 0.62 (L) AST 0 - 30 unit/L 14 ALT 0 - 30 unit/L 16 Alk Phos 35 - 105 unit/L 124 (H) Total Bilirubin 0.2 - 1.3 mg/dL 0.3 Estimated GFR >=60 mL/min/1.73 m?? 119 WBC 4.0 - 9.5 x10(3)/mcL 11.9 (H) RBC 4.00 - 5.21 x10(6)/mcL 4.64 Hemoglobin 11.7 - 15.5 gm/dL 13.9 Hematocrit 35.7 - 45.8 % 41.8 Platelets 145 - 357 x10(3)/mcL 304 QFT Nil IU/mL 0.070 QFT TB Ag1-Nil IU/mL 0.020 QFT TB Ag2-Nil IU/mL 0.030 QFT Mitogen-Nil IU/mL 7.430 Quantiferon TB Negative Negative Quantiferon TB Interp M. tuberculosis infection NOT likely . . . Assessment/Plan Psoriasis with Psoriatic Arthritis Significant improved arthritis symptoms and overall improved plaque psoriasis with approximately 1% BSA. Tolerating citrate free adalimumab well. Reviewed diagnosis and recommend continuing adalimumab but should consider augmented betamethasone under occlusion for the right knee. Discussed risks of skin atrophy associate with topical steroids. Answered all questions. Patient agrees to plan. ?? Continue adalimumab 40 mg SC every 2 weeks ?? Start augmented betamethasone ointment twice daily to the knee with occlusion under plastic wrap for 1 to 2 hours 3 times a week as needed. Counseled: risks of topical steroids, including but not limited to atrophy, dyspigmentation. Taking High Risk Medication [Adaliumumab] / Injection Pain Injection pain resolved with citrate free formula. Labs in May 2020 normal. Last Quantiferon Gold Feb 2020. Adalimumab is an antibody that antagonises TNF-alpha in the inflammatory pathway and is approved forthe treatment of psoriasis. Risks include serious mycobacterial, bacterial, fungal, and viral infections, such as tuberculosis; skin, organ and hematological malignancies; serious allergic reactions (in cluding angioedema, breathlessness and low blood pressure) and hypersensitivity (allergy) reactions (including rash and urticaria); injection site reactions include pain, swelling, itch, thickening, bleeding, and bruising. Live vaccines should not be used during treatment with adalimumab. ?? Labs in JanFeb 2021: CBC, LFT, Quanteferon Gold [performed at [facility]] ?? Continue citrate-free adalimumab Follow-up: 3 month psoriasis follow up with Dr Gonzalez to re-evaluate right knee (okay for telehealth). Return sooner as needed for suspicious lesion, new or worsening dermatitis. [] Recall placed [x] Forwarded to senior medical billing specialist [] Patient scheduled before exiting Scribe attestation: Jacinta Reynaga, ANNA has performed the documentation for this encounter in the presence of and acting as a scribe for MD MARTINE Joseph. I performed the above scribed service and agree with the accuracy of the documentation in this encounter. Reviewed and signed by: Jerardo Aleman MD [facility] documented in this encounter Plan of Treatment Scheduled Orders Name Type Priority Associated Diagnoses Order S chedule QuantiFERON-TB Gold Lab Routine High risk medication use Expected: 01/18/2021 (Approximate), Expires: 12/18/2021 Hepatic Function Panel Lab Routine High risk medicati on use Expected: 01/18/2021 (Approximate), Expires: 12/18/2021 CBC (with Diff) Lab Routine High risk medication use Expected: 01/18/2021 (Approximate), Expires: 12/18/2021 documented as of this encounter Visit Diagnoses Diagnosis Psoriasis Other psoriasis High risk medication use Encounter for long-term (current) use of other medications Psoriatic arthritis Psoriatic arthropathy Injection site reaction, subsequent enco unter documented in this encounter Care Teams Computer Consultant Relationship Specialty Start Date End Date None PCP - General 12/17/20 05/30/21 None documented as of this encounter
--- OUTSIDE RECORDS SUMMARY | 2022-01-13 08:44 | XMS_ITS | Encounter Summary ---
:1985 Author Organization [facility] [place] [address] Care Team Providers Name Role Phone Unknown Primary Care Provider Unavailable Encounter Details Date Type Department Care Team Description 06/27/2020 Telephone Dermatology at [facility] GonzalezCeli MD [address] [facility] [place] [address] [facility] [phone] [place], [place] [address] ( rk) Social History Tobacco Use Types Packs/Day Years Used Date Current Every Day Smoker Cigarettes Smokeless Tobacco: Never Used Sex Assigned at Date Recorded Not on file documented as of this encounter Miscellaneous Notes Telephone Encounter - Karina Anderson LPN - 06/27/2020 3:41 PM EDT Spoke with patient and she reports that she is getting a sinus infection and wants to know if she can take her Humira this weekend as scheduled. She has been on Humira for one month now, I advised her I would talk with MD and then update her. Telephone Encounter - Babita Yin - 06/27/2020 2:16 PM EDT Patient called this afternoon wanting to please speak to a nurse regarding her Humira medication. Yin Toledo mentioned she believes she is getting a sinus infection and would please like a call at soonest convenience. [phone] documented in this encounter Plan of Treatment Not on filedocumented as of this encounter Visit Diagnoses Not on filedocumented in this encounter Care Teams Cleaner And Preparer Relationship Specialty Start Date End Date Unknown PCP - General 03/14/18 12/16/20 None documented as of this encounter
--- OUTSIDE RECORDS SUMMARY | 2022-01-13 08:44 | XMS_ITS | Encounter Summary ---
:1985 Author Organization [place] [address] Care Team Providers Name Role Phone Unknown Primary Care Provider Unavailable Encounter Details Date Type Department Care Team Description 08/29/2020 Refill Dermatology at [facility] Celi Gonzalez MD [address] [facility] [place] [address] [facility] [address] [phone] [place], [place] [address] (Wo rk) Social History Tobacco Use Types Packs/Day Years Used Date Current Every Day Smoker Cigarettes Smokeless Tobacco: Never Used Sex Assigned at Date Recorded Not on file documented as of this encounter Plan of Treatment Not on filedocumented as of this encounter Visit Diagnoses Not on filedocumented in this encounter Care Teams Director Radiation Oncology Relationship Specialty Start Date End Date Unknown PCP - General 03/14/18 12/16/20 None documented as of this encounter
--- OUTSIDE RECORDS SUMMARY | 2022-01-13 08:44 | XMS_ITS | Encounter Summary ---
:1985 Author Organization [facility] [place] [address] Care Team Providers Name Role Phone Unknown Primary Care Provider Unavailable Reason for Visit Reason Comments Prior Authorization Otezla Encounter Details Date Type Department Care Team Description 02/21/2020 Specialty Pharm[address] at [facility] Maulik, Prior Authorization [facility] Quyen Oneill (Otezla) [place] [id number] Social History Tobacco Use Types Packs/Day Years Used Date Never Assessed Sex Assigned at Date Recorded Not on file documented as of this encounter Progress Notes Quyen Willinhgam - 02/21/2020 4:19 PM EST [facility], Medication Prior Authorization Patient: Yin Toledo Patient : 1985 Patient Address: [address] [address] (home) Medication Name: OTEZLA STARTER 10 MG (4)-20 MG (4)-30 MG(47) TABLETS IN A DOSE PACK Medication ID: [id number] Patient Location: [facility] Patient Location Comment: Subscriber Insurance: [place] Medicaid Subscriber Insurance Comment: Fax: Physician: LUCINDA PRICE Physician Comment: Sent Via: [facility] Chambers: [id number] Ref/Case/PA#: [id number] Medication Strength Frequency Requested: Day 1: 10mg in AM; Day 2: 10mg in AM and 10mg in PM; Day 3:10mg in AM and 20mg in PM, Day 4: 20mg in AM and 20mg in PM; Day 5: 20mg in AM and 30mg in PM; Day 6and thereafter: 30mg in AM and 30mg in PM Qty/Day Supply: New Start: New to Therapy Diagnosis & ICD-10 Code: L40.9 Psoriasis Patient Notified: No Submission Notes: None Quyen Willingham 02/21/20 4:31 PM Quyen Willingham - 02/21/2020 4:19 PM EST [facility], Prior Authorization Denial Medication Name: OTEZLA STARTER 10 MG (4)-20 MG (4)-30 MG(47) TABLETS IN A DOSE PACK Medication ID: [id number] Case/Reference # : [id number] Denial Summary: Patient must have a diagnosis of moderate to severe plaque psoriasis affecting >10% BSA and/or has involvement of the palms, soles, head and neck, or genetalia and must have had a documented side effect, allergy, inadequate treatment response, or carlin, atment failure to at least 2 topical agents and at least 1 oral systemic agent, unless otherwise contraindicated. Patient Notified of Denial: No Additional Information from insurance carrier. Please see below: None For any questions relating to this denial please reach out directly to your section's specialty pharmacist, or the specialty pharmacy team at [facility] Quyen Willingham 02/22/20 8:49 AM Abida Keith RPH - 02/21/2020 4:19 PM EST [facility], Prior Authorization Appeal Medication Name: OTEZLA STARTER 10 MG (4)-20 MG (4)-30 MG(47) TABLETS IN A DOSE PACK Medication ID: Denied by Insurance on: 02/21/2020 Appeal Submitted on: 02/22/2020 Sent Via: Fax Appeals Department Contact Information: Additional information regarding this appeal: Additional clinical information sent in- referral noted additional topicals tried and failed and concerns for use of oral systemics. For any questions relating to this appeal please reach out directly to your section's specialty pharmacist. Abida Keith RPH 02/22/20 2:04 PM documented in this encounter Plan of Treatment Not on filedocumented as of this encounter Visit Diagnoses Not on filedocumented in this encounter Care Teams Particleboard Factory Worker Relationship Specialty Start Date End Date Unknown PCP - General 03/14/18 12/16/20 None documented as of this encounter
--- OUTSIDE RECORDS SUMMARY | 2022-01-13 08:44 | XMS_ITS | Encounter Summary ---
:1985 Author Organization [place] [address] Care Team Providers Name Role Phone Unknown Primary Care Provider Unavailable Reason for Visit Reason Comments Specialty Refill Management Encounter Details Date Type Department Care Team Description 10/30/2020 Specialty Pharmacy Pharmacy at [facility] Colleen Ramos Specialty Refill [facility] [place] [id number] Social History Tobacco Use Types Packs/Day Years Used Date Current Every Day Smoker Cigarettes Smokeless Tobacco: Never Used Sex Assigned at Date Recorded Not on file documented as of this encounter Progress Notes Colleen Ramos CPHT - 10/30/2020 12:42 PM EDT Clinical Management Plan: Refill Specialty Pharmacy Consultation; Colleen Ramos CPHT Comprehensive Medication Management (CMM) Yin Toledo is [...] [Sulfamethoxazole-Trimethoprim] Hives Medication Reconciliation Discrepancies (compared to [facility] med list) No Specialty Pharmacy Refill Questionnaire Refill Questionnaire 10/30/2020 What is the name of the specialty medication you are refilling? Humira Are you taking any new medications? No Any new medical condition? No Any new allergies? No Any new side effects that are bothersome? No What date will you need this fill by? 11/16/2020 Adherence: Any missed doses? No Patient understands no changes to current drug regimen were made.. Colleen Ramos CPHT 10/30/20 12:43 PM documented in this encounter Plan of Treatment Not on filedocumented as of this encounter Visit Diagnoses Not on filedocumented in this encounter Care Teams Stained Glass Artist Relationship Specialty Start Date End Date Unknown PCP - General 03/14/18 12/16/20 None documented as of this encounter
--- OUTSIDE RECORDS SUMMARY | 2022-01-13 08:44 | XMS_ITS | Encounter Summary ---
:1985 Author Organization [facility] [place] [address] Care Team Providers Name Role Phone Unknown Primary Care Provider Unavailable Reason for Visit Reason Comments Medication Management Encounter Details Date Type Department Care Team Description 06/18/2020 Specialty Pharmacy Pharmacy at [facility] [place] Ivory Nascimento, [place] [id number] Social History Tobacco Use Types Packs/Day Years Used Date Current Every Day Smoker Cigarettes Smokeless Tobacco: Never Used Sex Assigned at Date Recorded Not on file documented as of this encounter Progress Notes Ivory Nascimento RPH - 06/18/2020 11:33 AM EDT Specialty Pharmacy Consultation; Ivory Nascimento Jhoan Comprehensive Medication Management (CMM) Yin Toledo Diagnosis: Psoriasis and Psoriatic Arthritis Therapy Start Date: 05/25/20 Contact in person or via telephone:telephone Ms. Yin Toledo is a 35 y.o. (1985) female who was contacted in regard to specialty medication. Spoke with patient regarding Humira. A review of the medication therapy was performed. The medication was Refilled as scheduled, and all medication related questions and concerns were addressed. The specialty pharmacy staff will follow up with the patient 5-7 days prior to next refill. Is the patient willing to proceed with the Clinical Assessment? Yes Summary and Recommendations: Spoke to patient in regards to Humira. Medication history, allergies, and medical conditions were confirmed; all are consistent with [facility]. Patient confirms proper storage, administration, and disposal. She denies any recent infections and confirms understanding of when to contact the clinic in order toassess if a hold in therapy is needed. Currently, she is taking Humira for the treatment of psoriasis and psoriatic arthritis. She says shehad a mild headache and cold sweats around the time of injections. She says it was not bothersome and did not take or needed any supportive therapy. Otherwise, she denies experiencing any other adverseeffects. She says her skin is starting to improve. She says her elbows are clearing up, the area under her breast is almost clear, her c section scar is almost resolved, her right knee cap is starting to clear (slower than her other julissa), and the area behind her ears are almost clear. She applies betamethasone daily or every other day as needed. She says her joints are still feel stiffness in the morning and at night, though says it is better. She says they are still swollen, painful, and the stiffness last about 20 min. She says movement helps. She does not take or use any other supportive care for her joints. Overall, she is pleased with the results she has seen and would like to continue therapy in hopes of seeing continued improvements. At this time, she does not have any other questions or concerns. She has our contact number should questions or concerns arise. We will continue to follow up with patient accordingly. Clinic follow-up needed: no Allergies and Drug intolerance: Allergies Allergen Reactions ??? Amoxicillin Hives ??? Bactrim [Sulfamethoxazole-Trimethoprim] Hives Problem List: Patient Active Problem List Diagnosis Code ??? Psoriasis L40.9 ??? Psoriatic arthritis L40.50 Special Dietary or Hydration Requirements: no There is no height or weight on file to calculate BMI. Medication Reconciliation Discrepancies (compared to [facility] med list) no Medication Adherence Patient reported X missed doses in the last month: 0 Any gaps in refill history greater than 2 weeks in the last 3 months: no Demonstrates understanding of importance of adherence: yes Informant: patient Reliability of informant: reliable Provider-estimated medication adherence level: 90-100% Reasons for non-adherence: no problems identified Adherence tools used: directed education Support network for adherence: healthcare provider Confirmed plan for next specialty medication refill: delivery by pharmacy Refills needed for supportive medications: not needed Medication List: Current Outpatient Medications Medication Sig Dispense Refill ??? Humira Pen Vprp-Ubggfx-Xqdl HS 40 mg/0.8 mL Pen Injector Kit Inject 80mg subcutaneously on day 1, followed by 40mg every 14 days thereafter starting on day 8. 4 kit 6 ??? Humira Pen 40 mg/0.8 mL Pen Injector Kit Inject 0.8 mLs subcutaneously every 14 days. 1 kit 5 No current facility-administered medications for this visit. [...] 3 Encounters: No data found for Pulse Pertinent Lab values: Lab Results Component Value [...] file for this patient. Assessment and Recommendations: Title Type of Medication Management: chronic disease management, targeted medication review Referred By: pharmacist Recipient: beneficiary Provider: plan sponsor pharmacist Visit Type: [facility] Follow-up Method of Contact: by telephone Cognitive Ability: good Cognitive Impairment Status Verified this Year: no Drug Interactions Provided the patient with educational material regarding drug interactions: yes Patient Counseling Counseled the patient on the following: reviewed medication changes since last visit, drug interaction education provided to patient, doses and administration discussed, safe handling, storage, and disposal discussed, possible adverse effects and management discussed, lab monitoring and follow-up discussed, therapeutic rationale discussed, cost of medications and cost implications discussed, adherence and missed doses discussed, pharmacy contact information discussed, health goals discussed, monitoring medication discussed, preventative care discussed, reminder to refill or pick pack worker medication discussed, self-monitoring discussed, timing of medications discussed, vaccination discussed, referral needs discussed Drug Medication Management Summary Topics discussed: reviewed medication changes since last visit, drug interaction education provided to patient, doses and administration discussed, safe handling, storage, and disposal discussed, possible adverse effects and management discussed, lab monitoring and follow-up discussed, therapeutic rationale discussed, cost of medications and cost implications discussed, adherence and missed doses discussed, pharmacy contact information discussed, health goals discussed, monitoring medication discussed, preventative care discussed, reminder to refill or pick pack worker medication discussed, self-monitoring discussed, timing of medications discussed, vaccination discussed, referral needs discussed Time spent: 16-30 min Treatment Outcomes No data found in the last 10 encounters. Reviewed in detail with patient: Dose appropriateness [...] use oldest product first Relevant lab data Patient verbalizes understanding and is able to read-back instructions on self-administration/injection, proper storage, drug stability, importance of adherence and management strategies, side effect avoidance and mitigation strategies, and interruptions in therapy: Yes Physical and Cognitive Assessment: Functional limitations identified: no Cognitive limitations identified: no Concern regarding orientation/memory: no Concern with reasoning/judgement: no Is patient a fall risk: no Other needed information: no Social Assessment: Does the patient have a primary child care? no Does the patient have an emergency contact on file: Yes Does patient need referral to social economist: No Does patient need referral to advocacy group: No Home Health Assessment: Is the patient in a safe home environment? Yes Is the patient able to store their medication as directed? Yes Does the patient have a support network at home? Yes Reviewed potential home safety hazards with patient: Yes Economic Assessment: Patient is agreeable to medication copay: yes Copay Amount: $0.00 Day Supply: 28 Date Needed: 06/29/20 Copay assistance required: no Therapy Assessment: Appropriate Therapy: Yes Current Medication Dosing/Route/Frequency: Humira 40mg/0.8mL Inject 40mg under the skin every 14 days Effective: yes - patient notes clearing in her skin Current Affected Areas: scalp, extremities, ears, abdomen Improving Affected Areas: all Worsening Affected Areas: none Total BSA involved: unknown Recent Skin Exacerbations/Flaring: no Recent Topical Corticosteroid Use: yes - betamethasone Relapsing/Remitting Factors: no Patient-Reported Side Effects: no Recent Infections: no Patient Goals: Patient's specific desired goal: patient would like to continue therapy in hopes of seeing further improvements in her joints and skin Measured by: BSA and joints Time-frame to meet goal: 6 months Is the patient on track to achieve goals of therapy? yes If no, what are the barriers and action plan to reach the goal: N/A Care Plan and Interventions: Care Plan Reviewed and Approved by both Pharmacist and Patient: Yes Did Care Plan Change? No If yes: Change to plans of care based on: Patient's request: no Condition: no Response to therapy: no Provider request: no Follow-up needed: No Interventions (if applicable): No Patient experienced change in condition that affects treatment: no Additional care/services needed: no Educational information or adherence tools provided: No Additional equipment/supplies required: no Counseling: Utilizing appropriate injection technique: yes - she confirms proper injection technique Rotation of Injection Sites: Yes Room Temperature Medication at Time of Injection: Yes Pharmacist follow-up needed: Yes Patient Satisfaction with Care/Services Provided: Yes Informed patient of specialty pharmacy services: Yes -Patient received welcome packet: Yes Date Received: 04/21/20 Delivery Method: mail -Patient returned signed Rights & Responsibilities: Yes Date Received: 04/21/20 Delivery Method: mail -Patient is aware a licensed pharmacist is available 24 hours a day, 7 days a week to discuss medication-related questions or concerns: Yes -Patient verbalizes understanding of education on the common side effect profile of the medication: Yes -The patient is able to call 911 or seek urgent care if signs/symptoms of allergy or harmful adversereactions occur: Yes Patient Satisfaction with Therapy: yes - patient notes improvements in her skin and joints Patient understands no changes to current drug regimen were made at the appointment and that [facility] is providing recommendations (summary located at top of note) for provider review and follow up. Ivory Nascimento RPH 06/18/20 11:53 AM documented in this encounter Plan of Treatment Not on filedocumented as of this encounter Visit Diagnoses Not on filedocumented in this encounter Care Teams Instrumentation Tech Relationship Specialty Start Date End Date Unknown PCP - General 03/14/18 12/16/20 None documented as of this encounter
--- OUTSIDE RECORDS SUMMARY | 2022-01-13 08:44 | XMS_ITS | Encounter Summary ---
:1985 Author Organization [facility] [place] [address] Care Team Providers Name Role Phone Unknown Primary Care Provider Unavailable Encounter Details Date Type Department Care Team Description 05/20/2020 Telephone Dermatology at [facility] Celi Butler MD [address] [address] [address] [phone] [place], [place] [address] (Wo rk) Social History Tobacco Use Types Packs/Day Years Used Date Current Every Day Smoker Cigarettes Smokeless Tobacco: Never Used Sex Assigned at Date Recorded Not on file documented as of this encounter Miscellaneous Notes Telephone Encounter - Yin Renee CMA - 05/20/2020 7:33 AM EST Labs reviewed from 05/16/2020 (in media) and they are okay to start Humira treatment per Dr. Gonzalez. documented in this encounter Plan of Treatment Not on filedocumented as of this encounter Visit Diagnoses Not on filedocumented in this encounter Care Teams Child And Youth Program Assistant Relationship Specialty Start Date End Date Unknown PCP - General 03/14/18 12/16/20 None documented as of this encounter
--- OUTSIDE RECORDS SUMMARY | 2022-01-13 08:44 | XMS_ITS | Encounter Summary ---
:1985 Author Organization [facility] [place] [address] Care Team Providers Name Role Phone Unknown Primary Care Provider Unavailable Reason for Visit Reason Comments Prior Authorization Humira 40mg/0.8ml PNKT Encounter Details Date Type Department Care Team Description 05/16/2020 Specialty Pharmacy Pharmacy at [facility] [place] Supa [place] Prior Authorization [facility] D (Humira 4 0mg/0.8ml Drive PNKT) [place] [id number] Social History Tobacco Use Types Packs/Day Years Used Date Current Every Day Smoker Cigarettes Smokeless Tobacco: Never Used Sex Assigned at Date Recorded Not on file documented as of this encounter Progress Notes Supa [place]lette D - 05/16/2020 1:53 PM EST [facility], Medication Prior Authorization Patient: Yin Toledo Patient : 1985 Patient Address: [address] [address] (home) Medication Name: HUMIRA PEN AHPNQNINH-WYIQEXT-SNVX HID SUP START 40 MG/0.8 ML SUBCUT KT Medication ID: [id number] Patient Location: [facility] Patient Location Comment: Subscriber Insurance: [place] Subscriber Insurance Comment: Phone: Fax: Physician: LUCINDA PRICE Physician Comment: Sent Via: Fax Chambers: Ref/Case/PA#: Medication Strength Frequency Requested: Humira 40mg/0.8ml PNKT inject 80 mg on day one, then [id number] on day eight and every fourteen days thereafter Qty/Day Supply: New Start: New to Therapy Diagnosis & ICD-10 Code: Psoriasis, unspecified [L40.9] Patient Notified: Left Voicemessage Submission Notes: None Supa [place] 05/16/20 2:03 PM Attila Sung - 05/16/2020 1:53 PM EST [facility], Prior Authorization Approval Medication Name: HUMIRA PEN ASWNXTMPM-[id number]-MZPM HID SUP START 40 MG/0.8 ML SUBCUT KT Medication ID: [id number] Approval Dates: 05/16/2020 to 06/16/2020 Insurance requirements/notes: None Other Notes: None Case/Reference #: [id number] Approval notification Received via: Telephone Copay: $ 3.00 Copay assistance: None Copay Notes: Insurance mandated Pharmacy: [facility] Fill[facility] at [facility] Specialty Pharmacy: Yes Pharmacy staff will be reaching out to the patient to inform them of their medication's approval by their insurance. If applicable, a pharmacist will speak with the patient to offer our specialty pharmacy services and to arrange delivery of their medication. Attila Sung 05/20/20 10:12 AM documented in this encounter Plan of Treatment Not on filedocumented as of this encounter Visit Diagnoses Not on filedocumented in this encounter Care Teams Dipper And Baker Relationship Specialty Start Date End Date Unknown PCP - General 03/14/18 12/16/20 None documented as of this encounter
--- OUTSIDE RECORDS SUMMARY | 2022-01-13 08:44 | XMS_ITS | Encounter Summary ---
:1985 Author Organization [facility] [place] [address] Care Team Providers Name Role Phone Unknown Primary Care Provider Unavailable Reason for Visit Reason Onset Date Comments Medication Refill 02/21/2020 Encounter Details Date Type Department Care Team Description 02/21/2020 Refill Dermatology at [facility] Celi Butler MD [address] [facility] [address] [facility] [phone] [place], [place] [address] (Wo rk) Social History Tobacco Use Types Packs/Day Years Used Date Never Assessed Sex Assigned at Date Recorded Not on file documented as of this encounter Plan of Treatment Not on filedocumented as of this encounter Visit Diagnoses Not on filedocumented in this encounter Care Teams Barrel And Receiver Aligner Relationship Specialty Start Date End Date Unknown PCP - General 03/14/18 12/16/20 None documented as of this encounter
--- OUTSIDE RECORDS SUMMARY | 2022-01-13 08:44 | XMS_ITS | Encounter Summary ---
:1985 Author Organization [facility] Address [place] [place] [address] Care Team Providers Name Role Phone Unknown Primary Care Provider Unavailable Reason for Visit Reason Comments Medication Management Patient Education Encounter Details Date Type Department Care Team Description 02/21/2020 Specialty Pharmacy Pharmacy at [facility] [place] Abida Keith Medication [facility] Managemen t; [place] [id number] Social History Tobacco Use Types Packs/Day Years Used Date Never Assessed Sex Assigned at Date Recorded Not on file documented as of this encounter Progress Notes Abida Keith RPH - 02/21/2020 8:37 AM EST Specialty Pharmacy Consultation; Abida Keith Jhoan Comprehensive Medication Management (CMM) Yin Toledo Diagnosis: Psoriatic Arthritis Therapy Start Date: TBD- New start Contact in person or via telephone: In clinic Ms. Yin Toledo is a 34 y.o. (1985) female who was contacted in regard to specialty medication. Spoke with patient regarding Otezla . A review of the medication therapy was performed. The medication was discussed as scheduled, and all medication related questions and concerns were addressed. [facility] with the patient 5-7 days prior to next refill. Is the patient willing to proceed with the Clinical Assessment? Yes Summary and Recommendations: Yin Toledo was seen in clinic for a review of Otezla for the treatment of psoriatic arthritis. Patient is aware of the prior authorization process and timeline and was given [facility] contact information for any questions. Patient was educated on the dosing schedule, Day 1: 10 mg by mouth in the morning, Day 2: 10 mg twice daily, Day 3: 10 mg in the morning and 20 mg in the evening, Day 4: 20 mg twice daily, Day 5: 20 mgin the morning and 30 mg in the evening, Day 6 and thereafter: 30 mg twice daily . Patient was educated on the Otezla labeled warnings and precautions including GI effects, neuropsychiatric effects, and weight loss. Patient was made aware that the use of Otezla is not recommended during /. Educated patient on the potential side effects of Otezla including diarrhea, nausea, headache, weight loss, and URTI. Patient notes extensive joint evolvement as well, including those in her elbows, knees, hips, fingers and toes. Relevant family history: maternal aunt- Breast cancer, No MS history. Patient allergies confirmed: Amoxicillin and Bactrim both have caused hives in the past. Patient notes that she is currently using betamethasone regularly, though it is difficult to cover the amount of area involved. Clinic follow-up needed: yes - will initiate PA process and follow up as needed Allergies and Drug intolerance: Not on File Problem List: There is no problem list on file for this patient. Special Dietary or Hydration Requirements: no There is no height or weight on file to calculate BMI. Medication Reconciliation Discrepancies (compared to [facility] med list) -yes Medication List: No current outpatient medications on file. No current facility-administered medications for this visit. [...] data found for Pulse Pertinent Lab values: No results found for: ALT, AST, GGT, ALKPHOS, BILITOT, BILIDIR, ALBUMIN, PROT No results found for: WBC, HGB, HCT, MCV, PLATELET No results found for: HA1C There is no immunization history on file for this patient. Assessment and Recommendations: Title Drug Treatment Outcomes No data found in the [...] Assessment: Does the patient have a primary skin care instructor? no Does the patient have an emergency contact on file: Yes Does patient need referral to social media marketing analyst: No Does patient need referral to advocacy group: No Home Health Assessment: Is the patient in a safe home environment? Yes Is the patient able to store their medication as directed? Yes Does the patient have a support network at home? Yes Reviewed potential home safety hazards with patient: Yes Economic Assessment: Patient is agreeable to medication copay: Yes-TBD Copay Amount: TBD Day Supply: 28 Date Needed: TBD- New start Copay assistance required: will assess once approved Therapy Assessment: Current Medication Dosing/Route/Frequency: Otezla Day 1: 10 mg by mouth in the morning, Day 2: 10 mgtwice daily, Day 3: 10 mg in the morning and 20 mg in the evening, Day 4: 20 mg twice daily, Day 5: 20 mg in the morning and 30 mg in the evening, Day 6 and thereafter: 30 mg twice daily Appropriate Therapy: Yes Current Affected Areas: Right knee, bilateral elbows and extensor forearms, scalp, postauricular area, and inframammary folds Total BSA involved: 8% Recent Skin Exacerbations/Flaring: yes - currently flaring Recent Topical Corticosteroid Use: yes - betamethasone Relapsing/Remitting Factors: no Diagnosis of Psoriatic Arthritis: Yes Patient's Problems/Needs: Will initiate PA process and potential appeal if needed Expected Outcome: Clearance of plaques refractory to topical therapy Patient's goals: Patient's specific desired goal: 50% skin clearance within the first 3 months of therapy Measured by: clinical follow up Time-frame to meet goal: 3 months Care Plan Reviewed and Approved by both Pharmacist and Patient: Yes Interventions (if applicable): No Additional care/services needed: no Educational information or adherence tools provided: No Additional equipment/supplies required: no Monitoring requirements for prescribed medication: weight, renal function, signs or symptoms of moodchanges, depression, or suicidal thoughts Pharmacist follow-up needed: Yes Patient Satisfaction with care/services provided: Yes Informed patient of specialty pharmacy services: Yes -Patient will be provided with welcome packet: Yes Date to be provided: TBD Delivery Method: Mail -Patient will be provided with Rights & Responsibilities: Yes Date to be provided: TBD Delivery Method: Mail -Patient is aware a licensed pharmacist is available 24 hours a day, 7 days a week to discuss medication-related questions or concerns: Yes -Patient verbalizes understanding of the common side effect profile of their medication. The patientis able to call 911 or seek urgent care if signs/symptoms of allergy or harmful adverse reactions occur: Yes Patient understands no changes to current drug regimen were made at the appointment and that [facility] is providing recommendations (summary located at top of note) for provider review and follow up. Abida Keith RPH 02/21/20 8:37 AM documented in this encounter Plan of Treatment Not on filedocumented as of this encounter Visit Diagnoses Not on filedocumented in this encounter Care Teams Machine Presser Relationship Specialty Start Date End Date Unknown PCP - General 03/14/18 12/16/20 None documented as of this encounter
--- OUTSIDE RECORDS SUMMARY | 2022-01-13 08:44 | XMS_ITS | Encounter Summary ---
:1985 Author Organization [place] [address] Care Team Providers Name Role Phone Unknown Primary Care Provider Unavailable Encounter Details Date Type Department Care Team Description 03/25/2020 Telephone Dermatology at [facility] GonzalezCeli MD [address] [place] [address] [facility] [phone] [place], [place] [address] (Wo rk) Social History Tobacco Use Types Packs/Day Years Used Date Never Assessed Sex Assigned at Date Recorded Not on file documented as of this encounter Miscellaneous Notes Telephone Encounter - Nadine Fuentes - 03/25/2020 3:44 PM EST I received a phone call from Grisel at [facility] wanting to follow up on a PA for Yin Toledo. I told her I would send a note to the pharmacist that was working on it and see if she can give her a call back. Best number is [phone]. documented in this encounter Plan of Treatment Not on filedocumented as of this encounter Visit Diagnoses Not on filedocumented in this encounter Care Teams Delivery Table Feeder Relationship Specialty Start Date End Date Unknown PCP - General 03/14/18 12/16/20 None documented as of this encounter
--- OUTSIDE RECORDS SUMMARY | 2022-01-13 08:44 | XMS_ITS | Encounter Summary ---
:1985 Author Organization [facility] [place] [address] Care Team Providers Name Role Phone Unknown Primary Care Provider Unavailable Reason for Visit Reason Comments Follow-up Encounter Details Date Type Department Care Team Description 05/14/2020 [facility] Jerman Hunter MD Psoriatic arthritis [address] [place] [address] [facility] [phone] [address] [place], [place] [address] Social History Tobacco Use Types Packs/Day Years Used Date Current Every Day Smoker Cigarettes Smokeless Tobacco: Never Used Sex Assigned at Date Recorded Not on file documented as of this encounter Progress Notes Celi Gonzalez MD - 05/14/2020 7:30 AM EST DERMATOLOGY TELEHEALTH ENCOUNTER Date of Service: 05/14/2020 Yin Toledo : 1985 Provider: Celi Gonzalez MD Chief Complaint Patient presents with ??? 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 female, established patient last seen by me on 02/21/2020. Patient seen today via TeleHealth for a follow up of psoriasis with the following concerns: - Patient discontinued apremilast (Otezla) treatment last week as advised by myself due to overall fatigue once she started 30 mg BID. She was starting to notice improvement with her skin while on the Otezla. Her fatigue has improved since discontinuing. Since discontinuing, she has started to notice more involvement on the abdomen at her scars and in the ears. She has augmented betamethasone cream, which she uses with minimal improvement. Reviewed labs: has had recent q gold and hepatitis, in addition to cbc cmp Last FSE: N/A This visit is conducted remotely with the patient in [place]. Patient understands that this will be billed as in-person office visit. MEDS Current Outpatient Medications Medication Sig Dispense Refill ??? apremilast (Otezla) 30 mg Tablet Take 30 mg by mouth 2 times daily. 60 tablet 5 No current facility-administered medications for this visit. ADR Allergies Allergen Reactions ??? Amoxicillin Hives ??? Bactrim [Sulfamethoxazole-Trimethoprim] Hives ROS General: Feeling well Skin: Denies other skin complaints EXAM (limited examination performed via TeleHealth) Constitutional: Patient was alert, well-appearing and in no noticeable distress. Skin: No examination performed. Significant Skin Findings: A. Patient describes scattered pink scaly plaques on the scalp, extremities, and in the inframammaryfolds with new involvement in the ears and abdomen along C- section incision. ASSESSMENT/PLAN A. Psoriasis with Psoriatic Arthritis - Failed topicals and Otezla. - Discussed treatment options, including other biologics (Humira, Stelara). Chart routed to [facility] to determine insurance coverage. - Discussed risks: Immunosuppression (increased risk of malignancy/infection). Advised patient to hold injection in the event of a fever. Advised patient to not receive any live vaccines (COVID vaccineis okay). - Reviewed necessity of lab monitoring and routine follow ups. - Patient will have labs (CBC, CMP) performed at [facility]. Follow Up: RTC in 3 months for: [] FSE [x] Follow up [x] Note routed to director of safety to schedule Note initiated by: Yin Renee CMA I am documenting this encounter acting as the scribe for and in the presence of Dr. Gonzalez: Krista Mao I performed the above scribed service and agree with the accuracy of the documentation in this encounter. Celi Gonzalez MD Wicker Molded Candles of Dermatology Department of Dermatology [facility] cc: Unknown documented in this encounter Plan of Treatment Not on filedocumented as of this encounter Visit Diagnoses Diagnosis Psoriasis Other psoriasis Psoriatic arthritis Psoriatic arthropathy documented in this encounter Care Teams Wort Extractor Relationship Specialty Start Date End Date Unknown PCP - General 03/14/18 12/16/20 None documented as of this encounter
--- OUTSIDE RECORDS SUMMARY | 2022-01-13 08:44 | XMS_ITS | Encounter Summary ---
:1985 Author Organization [place] [address] Care Team Providers Name Role Phone Unknown Primary Care Provider Unavailable Reason for Visit Reason Comments Prior Authorization Humira Pen 40mg/0.8mL PNKT Encounter Details Date Type Department Care Team Description 10/08/2020 Specialty Pharmacy Pharmacy at [facility] Lorene Prado Prior Authorization [facility] R, TUBING MACHINE TENDER (Humira P en [address] 40mg/0.8mL PNKT) [place] [address] Social History Tobacco Use Types Packs/Day Years Used Date Current Every Day Smoker Cigarettes Smokeless Tobacco: Never Used Sex Assigned at Date Recorded Not on file documented as of this encounter Progress Notes Lorene Prado R - 10/08/2020 8:25 AM EDT [facility], Medication Prior Authorization Patient: Yin Toledo Patient : 1985 Patient Address: [place] [address] [place] [address] (home) Medication Name: HUMIRA PEN 40 MG/0.8 ML SUBCUTANEOUS KIT Medication ID: [id number] Patient Location: [facility] Patient Location Comment: Subscriber Insurance: [place] Medicaid Subscriber Insurance Comment: Physician: LUCINDA GONZALEZ Physician Comment: Sent Via: [facility] Chambers: [id number] Ref/Case/PA#: N/A Medication Strength Frequency Requested: Inject the contents of one pen (40mg) subcutaneously once every 14 days. Qty/Day Supply: 05/11 New Start: Renewal Diagnosis & ICD-10 Code: L40.9 Patient Notified: No Submission Notes: None Lorene Prado 10/08/20 8:33 AM Lorene Prado - 10/08/2020 8:25 AM EDT [facility], Prior Authorization Approval Medication Name: HUMIRA PEN 40 MG/0.8 ML SUBCUTANEOUS KIT Medication ID: [id number] Approval Dates: 10/08/2020 to 10/08/2021 Insurance requirements/notes: None Other Notes: None Case/Reference #: [id number] Approval notification Received via: Telephone Copay: $3.00 Copay assistance: None Copay Notes: Patient pays $3.00 copay. Insurance mandated Pharmacy: [facility] Fillable at [facility]: Yes Pharmacy staff will be reaching out to the patient to inform them of their medication's approval by their insurance. If applicable, a pharmacist will speak with the patient to offer our specialty pharmacy services and to arrange delivery of their medication. Lorene Prado 10/09/20 10:20 AM documented in this encounter Plan of Treatment Not on filedocumented as of this encounter Visit Diagnoses Not on filedocumented in this encounter Care Teams Temperature Control Inspector Relationship Specialty Start Date End Date Unknown PCP - General 03/14/18 12/16/20 None documented as of this encounter
--- OUTSIDE RECORDS SUMMARY | 2022-01-13 08:44 | XMS_ITS | Encounter Summary ---
:1985 Author Organization [facility] [place] [address] Care Team Providers Name Role Phone Unknown Primary Care Provider Unavailable Encounter Details Date Type Department Care Team Description 12/10/2020 [facility] [address] [facility] [place] [address] [facility] [address]-DERMAT[facility] [phone] [place], [place] [address] (Wo rk) Social History Tobacco Use Types Packs/Day Years Used Date Current Every Day Smoker Cigarettes Smokeless Tobacco: Never Used Sex Assigned at Date Recorded Not on file documented as of this encounter Plan of Treatment Not on filedocumented as of this encounter Visit Diagnoses Not on filedocumented in this encounter Care Teams Demonstrator Sewing Techniques Relationship Specialty Start Date End Date Unknown PCP - General 03/14/18 12/16/20 None documented as of this encounter
--- OUTSIDE RECORDS SUMMARY | 2022-01-13 08:44 | XMS_ITS | Encounter Summary ---
:1985 Author Organization [facility] [place] [address] Care Team Providers Name Role Phone Unknown Primary Care Provider Unavailable Reason for Visit Reason Comments Specialty Refill Management Encounter Details Date Type Department Care Team Description 09/05/2020 Specialty Pharmacy Pharm[place] [facility] [place] [id number] Social History Tobacco Use Types Packs/Day Years Used Date Current Every Day Smoker Cigarettes Smokeless Tobacco: Never Used Sex Assigned at Date Recorded Not on file documented as of this encounter Progress Notes Mely Mckoy - 09/05/2020 4:46 PM EDT Clinical Management Plan: Refill Specialty Pharmacy Consultation; Mely Mckoy Comprehensive Medication Management (CMM) Yin Toledo is [...] [Sulfamethoxazole-Trimethoprim] Hives Medication Reconciliation Discrepancies (compared to [facility] med list) No Specialty Pharmacy Refill Questionnaire Refill Questionnaire 09/05/2020 What is the name of the specialty medication you are refilling? Humira Pen 40MG/0.8ML PNKT Are you taking any new medications? No Any new medical condition? No Any new allergies? No Any new side effects that are bothersome? No What date will you need this fill by? 09/14/2020 Adherence: Any missed doses? No Patient understands no changes to current drug regimen were made.. Mely Mckoy 09/05/20 4:47 PM documented in this encounter Plan of Treatment Not on filedocumented as of this encounter Visit Diagnoses Not on filedocumented in this encounter Care Teams Coconut Boiler Relationship Specialty Start Date End Date Unknown PCP - General 03/14/18 12/16/20 None documented as of this encounter
--- OUTSIDE RECORDS SUMMARY | 2022-01-13 08:44 | XMS_ITS | Encounter Summary ---
:1985 Author Organization [facility] [place] [address] Care Team Providers Name Role Phone Unknown Primary Care Provider Unavailable Reason for Visit Reason Onset Date Comments Medication Refill 05/14/2020 Encounter Details Date Type Department Care Team Description 05/14/2020 Refill Dermatology at [facility] GonzalezCeli MD [address] [facility] [place] [address] [facility] [phone] [place], [place] [address] (Wo rk) Social History Tobacco Use Types Packs/Day Years Used Date Current Every Day Smoker Cigarettes Smokeless Tobacco: Never Used Sex Assigned at Date Recorded Not on file documented as of this encounter Plan of Treatment Not on filedocumented as of this encounter Visit Diagnoses Not on filedocumented in this encounter Care Teams Forestry Technical Officer Relationship Specialty Start Date End Date Unknown PCP - General 03/14/18 12/16/20 None documented as of this encounter
--- OUTSIDE RECORDS SUMMARY | 2022-01-13 08:44 | XMS_ITS | Encounter Summary ---
:1985 Author Organization [facility] [place] [address] Care Team Providers Name Role Phone Unknown Primary Care Provider Unavailable Encounter Details Date Type Department Care Team Description 06/27/2020 Telephone Dermatology at [facility] Celi Gonzalez MD [address] [facility] [place] [address] [facility] [phone] [place], [place] [address] (Wo rk) Social History Tobacco Use Types Packs/Day Years Used Date Current Every Day Smoker Cigarettes Smokeless Tobacco: Never Used Sex Assigned at Date Recorded Not on file documented as of this encounter Miscellaneous Notes Telephone Encounter - Karina Anderson LPN - 06/27/2020 3:51 PM EDT Spoke with Dr. Gonzalez and she advised to hold the humira until she is off antibiotics and feels well. Patient updated and will hold Humira. documented in this encounter Plan of Treatment Not on filedocumented as of this encounter Visit Diagnoses Not on filedocumented in this encounter Care Teams Teacher Adult Education Relationship Specialty Start Date End Date Unknown PCP - General 03/14/18 12/16/20 None documented as of this encounter
--- OUTSIDE RECORDS SUMMARY | 2022-01-13 08:44 | XMS_ITS | Encounter Summary ---
:1985 Author Organization [facility] [place] [address] Care Team Providers Name Role Phone Unknown Primary Care Provider Unavailable Reason for Visit Reason Comments Prior Authorization Humira Pen 40mg/0.4mL PNKT Encounter Details Date Type Department Care Team Description 12/11/2020 Specialty Pharmacy Pharmacy at [facility] Attila Sung Prior Authorization [facility] P (Humira P en 40mg/0.4mL Drive PNKT) [place] [id number] Social History Tobacco Use Types Packs/Day Years Used Date Current Every Day Smoker Cigarettes Smokeless Tobacco: Never Used Sex Assigned at Date Recorded Not on file documented as of this encounter Progress Notes Attila Sung P - 12/11/2020 11:20 AM EDT [facility], Medication Prior Authorization Patient: Yin Toledo Patient : 1985 Patient Address: [address] [address] Phone: There is no home phone number on file. Medication Name: ADALIMUMAB 40 MG/0.4 ML SUBCUTANEOUS PEN KIT Medication ID: Patient Location: [facility] Patient Location Comment: Subscriber Insurance: [place] Medicaid Subscriber Insurance Comment: Fax: Physician: LUCINDA PRICE Physician Comment: Sent Via: Fax Chambers: Ref/Case/PA#: Medication Strength Frequency Requested: Humira Pen 40mg/0.4mL PNKT. Inject the contents of one pen (40mg) SQ every 14 days. Qty/Day Supply: 05/11 New Start: Change in Dose Diagnosis & ICD-10 Code: Psoriasis L40.9 Patient Notified: No Submission Notes: None Attila Sung 12/11/20 11:22 AM Attila Sung - 12/11/2020 11:20 AM EDT [facility], Prior Authorization Approval Medication Name: ADALIMUMAB 40 MG/0.4 ML SUBCUTANEOUS PEN KIT Medication ID: Approval Dates: 12/11/2020 to 10/08/2021 Insurance requirements/notes: None Other Notes: None Case/Reference #: [id number] Approval notification Received via: Fax Copay: $3.00 Copay assistance: None Copay Notes: Insurance mandated Pharmacy: [facility] Fillable at [facility]: Yes Pharmacy staff will be reaching out to the patient to inform them of their medication's approval by their insurance. If applicable, a pharmacist will speak with the patient to offer our specialty pharmacy services and to arrange delivery of their medication. Attila Sung 12/11/20 1:31 PM documented in this encounter Plan of Treatment Not on filedocumented as of this encounter Visit Diagnoses Not on filedocumented in this encounter Care Teams Oil Well Cable Tool Driller Relationship Specialty Start Date End Date Unknown PCP - General 03/14/18 12/16/20 None documented as of this encounter
--- OUTSIDE RECORDS SUMMARY | 2022-01-13 08:44 | XMS_ITS | Encounter Summary ---
:1985 Author Organization [facility] [place] [address] Care Team Providers Name Role Phone Unknown Primary Care Provider Unavailable Encounter Details Date Type Department Care Team Description 05/09/2020 Telephone [address] at [facility] Celi Gonzalez MD [address] [facility] [place] [address] [facility] [phone] [place], [place] [address] (Wo rk) Social History Tobacco Use Types Packs/Day Years Used Date Never Assessed Sex Assigned at Date Recorded Not on file documented as of this encounter Miscellaneous Notes Telephone Encounter - Karina Anderson LPN - 05/09/2020 1:13 PM EST Patient called and complained of feeling exhausted going into her fifth week of Otezla. States she has no energy. Reviewed with Dr. Gonzalez and per Dr. Gonzalez advised patient to stop Otezla, get labs ather [facility] and we will schedule a telehealeth for next week Labs faxed to [facility] at [phone] documented in this encounter Plan of Treatment Not on filedocumented as of this encounter Visit Diagnoses Diagnosis High risk medication use Encounter for long-term (current) use of other medications documented in this encounter Care Teams Supervising Editor Trailer Relationship Specialty Start Date End Date Unknown PCP - General 03/14/18 12/16/20 None documented as of this encounter
--- OUTSIDE RECORDS SUMMARY | 2022-01-13 08:44 | XMS_ITS | Encounter Summary ---
:1985 Author Organization [facility] [place] [address] Care Team Providers Name Role Phone Unknown Primary Care Provider Unavailable Encounter Details Date Type Department Care Team Description 11/12/2020 Telephone Dermatology at [facility] GonzalezCeli MD [address] [place] [address] [address] [facility] [phone] [place], [place] [address] (Wo rk) Social History Tobacco Use Types Packs/Day Years Used Date Current Every Day Smoker Cigarettes Smokeless Tobacco: Never Used Sex Assigned at Date Recorded Not on file documented as of this encounter Miscellaneous Notes Telephone Encounter - Debbie Ross LPN - 11/12/2020 2:00 PM EDT Tried calling pt x 2 and the message was call did not go through and to try again. Will ask executive legal secretary to call and get pt on the line. Will also send message through the protal. Rx: Humira: Inject 0.8 mLs subcutaneously every 14 days. Telephone Encounter - Socorro Taveras - 11/12/2020 12:13 PM EDT Patient called and wanted to know when she was supposed to take her Humara. Every week or every other week. Please give her acall. Socorro documented in this encounter Plan of Treatment Not on filedocumented as of this encounter Visit Diagnoses Not on filedocumented in this encounter Care Teams Chassis Wirer Relationship Specialty Start Date End Date Unknown PCP - General 03/14/18 12/16/20 None documented as of this encounter
--- OUTSIDE RECORDS SUMMARY | 2022-01-13 08:44 | XMS_ITS | Encounter Summary ---
:1985 Author Organization [facility] [place] [address] Care Team Providers Name Role Phone Unknown Primary Care Provider Unavailable Encounter Details Date Type Department Care Team Description 02/25/2020 Telephone Dermatology at [facility] GonzalezCeli MD [address] [place] [address] [facility] [address]-DERMATOLGY [phone] [place], [place] [address] (Wo rk) Social History Tobacco Use Types Packs/Day Years Used Date Never Assessed Sex Assigned at Date Recorded Not on file documented as of this encounter Miscellaneous Notes Telephone Encounter - Nadine Fuentes - 02/25/2020 12:53 PM EST I received a phone call from Yin Toledo wanting to know if her otezla mediation was approved. I told her that I would have to reach out and see if someone can look into it for her. She can be reached back at [phone] and it is ok to leave a detailed message. documented in this encounter Plan of Treatment Not on filedocumented as of this encounter Visit Diagnoses Not on filedocumented in this encounter Care Teams Peanut Grader Relationship Specialty Start Date End Date Unknown PCP - General 03/14/18 12/16/20 None documented as of this encounter
--- OUTSIDE RECORDS SUMMARY | 2022-01-13 08:44 | XMS_ITS | Encounter Summary ---
:1985 Author Organization [facility] [place] [address] Care Team Providers Name Role Phone Unknown Primary Care Provider Unavailable Reason for Visit Reason Comments Psoriasis Consultation (Routine) - Closed Specialty Diagnoses / Procedures Referred By Contact Refer red To Contact Dermatology Diagnoses Psoriasis, unspecified SEVERE PSORIASIS AND JOINT PAIN, WANTS Rupali Hernandez PA [facility] Dermatology [address] [place] [address] [place] [address] Fax: Referral ID Status Reason Start Date Expiration Date Visits V isits Requested Authorized [id number] Closed Consult, Test 01/28/2020 01/27/2021 [facility] PCP Updated and/or Approved Encounter Details Date Type Department Care Team Description 02/21/2020 Office Visit Dermatology at [facility], Psoriasis; Jerman MANNING Psoriatic arthritis [address] [place] [address] [facility]DER[facility] [place], [place] [address] (Wo rk) Social History Tobacco Use Types Packs/Day Years Used Date Never Assessed Sex Assigned at Date Recorded Not on file documented as of this encounter Progress Notes Celi Gonzalez MD - 02/21/2020 8:15 AM EST DERMATOLOGY CONSULT PATIENT CLINIC NOTE Date of Service: 02/21/2020 Yin Toledo : 1985 Provider: Celi Gonzalez MD Chief Complaint Patient presents with ??? 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 female, new patient to me and to dermatology, seen at the request of CR Simpson, who instructed the patient to be seen for evaluation of psoriasis. Here today with the following concerns: - Psoriasis since age 19, currently treating with augmented betamethasone ointment BID for several years now, she does not feel this controls it well and would like to pursue treatment with biologics - Present on her arms, legs, under the breasts, ears, and scalp. - She notes that her nails seem to be lifting. - Has tried home remedies; vegetable oil, lotion, coconut oil - no improvement - Endorses joint pain in her knees, elbows, hips, fingers, sometimes wrists. Pain and stiffness is worse in the morning, which takes about 30 minutes to resolve. Some days she is sore through the day, some days it fades away. Her pain is not well controlled with OTC pain meds MEDS No current outpatient medications on file. No current facility-administered medications for this visit. ADR Not on File PMH There is no problem list on file for this patient. ROS General: Feeling well Skin: Denies other skin complaints EXAM General: NAD, pleasant, cooperative Skin: A focused skin examination of the hands, arms, legs, and chest, significant for??the following: Significant Skin Findings: A. Right knee, bilateral elbows and extensor forearms, scalp, postauricular area, and inframammary folds: Scattered pink, well-demarcated, thick plaques with silvery scale. BSA: Approximately 8%. Associated arthritis. ASSESSMENT/PLAN A. Psoriasis with Psoriatic Arthritis - Discussed treatment options, including topicals and biologics. - Start Rx: apremilast (Otezla) 10mg tablets: Day 1: 10mg in AM; Day 2: 10mg in AM and 10mg in PM; Day 3: 10mg in AM and 20mg in PM, Day 4: 20mg in AM and 20mg in PM; Day 5: 20mg in AM and 30mg in PM; Day 6 and thereafter: 30mg in AM and 30mg in PM (Loading: D-55 tab, R-0) - Discussed risks: Discussed potential adverse risks of Otezla, including but not limited to immune modulation/suppresion, GI upset, weight loss, depression, headache among the most frequent. - Counseled side effects and potential adverse reactions: Flu-like symptoms (nausea, vomiting, diarrhea), headaches, fatigue, mood changes. - Reviewed necessity of lab monitoring and routine follow ups. - Labs today: CBC, CMP, QuantGold, HepB, HepC Follow Up: RTC in 3 months for: [] FSE [x] Follow up - psoriasis, can be by telehealth [x] Reminder placed in system [] Appointment scheduled before exiting Note initiated by: Nando Mackay CMA I am documenting this encounter acting as the scribe for and in the presence of Dr. Gonzalez: Krista Mao I performed the above scribed service and agree with the accuracy of the documentation in this encounter. Celi Gonzalez MD Compliance Counsel of Dermatology Department of Dermatology [facility] cc: Lambert Lynn Celi Gonzalez MD - 02/21/2020 8:15 AM EST Rudy Esqueda, just a note to let you know your recent lab tests were essentially normal. - Celi Gonzalez documented in this encounter Plan of Treatment Not on filedocumented as of this encounter Procedures Procedure Name Priority Date/Time Associated Comments Diagnosis HC QUANTIFERON Routine 02/21/2020 9:14 AM Psoriasis Results for this EST procedure are i n the results section. HEMOGRAM Routine 02/21/2020 9:14 AM Psoriasis Results f or this EST procedure are i n the results section. DIFFERENTIAL, Routine 02/21/2020 9:14 AM Psoriasis Results for this AUTOMATED EST procedure are i n the results section. HC VENIPUNCTURE Routine 02/21/2020 9:14 AM Psoriasis Result s for this EST procedure are i n the results section. HC HEPATITIS B CORE AB Routine 02/21/2020 9:14 AM Psoriasis Results for this EST procedure are i n the results section. HC HEPATITIS B SURFACE Routine 02/21/2020 9:14 AM Psoriasis Results for this AB EST procedure are i n the results section. HC HEPATITIS B SURFACE Routine 02/21/2020 9:14 AM Psoriasis Results for this AG EST procedure are i n the results section. HC CBC,PLT & AUTO DIFF Routine 02/21/2020 9:14 AM Psoriasis EST COMPREHENSIVE Routine 02/21/2020 9:14 AM Psoriasis Results for this METABOLIC PANEL EST procedure ar e in (NON-FASTING) the results section. documented in this encounter Results (ABNORMAL) Differential, Automated (02/21/2020 9:14 AM EST) [facility] gist Method Time Signature Neutrophils % 61.4 % [facility]OR[facility]ORY Neutr Abs (ANC) 7.32 (H) 1.70 - [facility] 6.10 [facility] x10(3)/[facility] L LABORATORY Lymphocytes % 30.3 % [facility] Lymphocytes Abs 3.6 (H) 0.9 - 3.2 [facility] x10(3)/[facility] LABORATORY Monocytes % 5.3 % [facility] Monocyte Abs 0.6 0.3 - 0.9 [facility] x10(3)/[facility] LABORATORY Eosinophils % 2.3 % [facility] Eosinophils Abs 0.3 0.0 - 0.4 [facility] x10(3)/[facility] LABORATORY Basophils % 0.4 % [facility] Basophils Abs 0.0 0.0 - 0.1 [facility] x10(3)/[facility] LABORATORY Immature Gran % 0.30 % [facility] Comment: Immature granulocytes(IG's)percentage an d absolute count will include metamyelocytes, myelocytes, and promyelo cytes. Blood smears from CBCs yielding IG's will be scanned manually for concor dance. If this scan disagrees with the automated IG or if promyelocytes are not ed, a manual differential will be performed. Karlene Gran Abs 0.03 0.00 - 0.04 x10(3)/[facility] MAR Y [facility] LABORATORY Specimen Anatomical Collection Method Collection Time Receive d Time (Source) Location / / Volume Laterality Blood specimen 02/21/2020 9:14 AM 020 (specimen) EST 10:15 AM EST Resulting Agency Comment Spec In Lab Celi Gonzalez MD HEMATOLOGY ORDERABLES Performing Organization Address City/State/[place] [address] (ABNORMAL) Hemogram (02/21/2020 9:14 AM EST) Analysis Performed At Patho logist Time Signature WBC 11.9 (H) 4.0 - 9.5 [facility] x10(3)/[facility] LABORATORY RBC 4.64 4.00 - [facility] VIPUL 5.21 [facility] x10(6)/[facility] LABORATORY Hemoglobin 13.9 11.7 - [facility] 15.[facility] gm/dL [facility]OR[facility] Hematocrit 41.8 35.7 - [facility] 45.8 % [facility] MCV 90.1 82.6 - [facility] 94.4 fL [facility] MCH 30.0 27.1 - [facility] VIPUL 32.0 pg [facility] LABORATORY MCHC 33.3 31.7 - [facility] 35.0 gm/dL [facility]OR[facility]ORY Platelets 304 145 - 357 [facility] x10(3)/[facility] LABORATORY RDWSD 42.8 37.0 - [facility] 46.0 [facility] LABORATORY RDWCV 13.0 11.5 - [facility] 14.1 % [facility] LABORATORY MPV 9.0 7.6 - 12.9 [facility] LABORATORY nRBC % Auto 0.0 % [facility] LABORATORY nRBC Abs Auto 0.000 0.000 - [facility] 0.000 [facility] x10(3)/[facility] LABORATORY Specimen Anatomical Collection Method Collection Time Receive d Time (Source) Location / / Volume Laterality Blood specimen 02/21/2020 9:14 AM 020 (specimen) EST 10:15 AM EST Resulting Agency Comment Spec In Lab Celi Gonzalez MD HEMATOLOGY ORDERABLES Performing Organization Address City/[facility] Phon e Number [address] Hepatitis C Antibody (02/21/2020 9:14 AM EST) Analysis Performed At Patho logist Time Signature Hepatitis C Ab Negative Negative [facility]OR[facility]ORY Specimen Anatomical Collection Method Collection Time Receive d Time (Source) Location / / Volume Laterality Blood specimen 02/21/2020 9:14 AM 020 (specimen) EST 12:56 PM EST Resulting Agency Comment Spec In Lab Celi Gonzalez MD IMMUNOLOGY ORDERABLES Performing Organization Address City/[facility] Phon e Number [address] Hepatitis B Surface Antigen (02/21/2020 9:14 AM EST) Analysis Performed At Patho logist Time Signature HepB Surface Negative Negative [facility] LABORATORY Specimen Anatomical Collection Method Collection Time Receive d Time (Source) Location / / Volume Laterality Blood specimen 02/21/2020 9:14 AM 020 (specimen) EST 12:56 PM EST Resulting Agency Comment Spec In Lab Celi Gonzalez MD CHEMISTRY ORDERABLES Performing Organization Address City/[facility] Phon e Number [address] Hepatitis B Surface Antibody (02/21/2020 9:14 AM EST) P athologist Signature HepB Surface 10.8 IU/L [facility] Ab Quant [facility] LAB[facility] Comment: HepB Surface Ab Quant: Unvaccinated: < 8.5 IU/L Vaccinated: > 11.5 IU/L HepB Surface Ab Indeterminate [facility] LABORATORY Comment: Unable to determine if the antibody is p resent at concentrations consistent with immunity to HBV infection. Expected Results: Vaccinated: Positive Unvaccinated: Negative Specimen Anatomical Collection Method Collection Time Receive d Time (Source) Location / / Volume Laterality Blood specimen 02/21/2020 9:14 AM 020 (specimen) EST 12:56 PM EST Resulting Agency Comment Spec In Lab Celi Gonzalez MD IMMUNOLOGY ORDERABLES Performing Organization Address City/[facility]/ZIP Code Phon e Number [address] Hepatitis B Core Antibody, Total (02/21/2020 9:14 AM EST) Analysis Performed At Patho logist Time Signature Hep B Core Ab Negative Negative [facility]OR[facility] Specimen Anatomical Collection Method Collection Time Receive d Time (Source) Location / / Volume Laterality Blood specimen 02/21/2020 9:14 AM 020 (specimen) EST 12:56 PM EST Resulting Agency Comment Spec In Lab Celi Gonzalez MD CHEMISTRY ORDERABLES Performing Organization Address City/[facility] Phon e Number [address] QuantiFERON-TB Gold (02/21/2020 9:14 AM EST) Patholo gist Method Time Signature QFT Nil 0.070 IU/mL [facility]OR[facility]ORY QFT TB Ag1-Nil 0.020 IU/mL [facility] LABOR[facility]ORY QFT TB Ag2-Nil 0.030 IU/mL [facility] QFT 7.430 IU/mL [facility] Mitogen-Nil [facility] LABORATORY Quantiferon TB Negative Negative [facility]OR[facility]ORY Quantiferon TB M. tuberculosis infection NOT likely [place] Interp A negative specimen should h ave a TB1 Ag minus Nil value and TB2 Ag minus Nil [place] value of less than 0.35 IU/mL OR a TB1 Ag minus Nil or TB2 Ag minus Nil value [facility] greater than or equal to 0.35 IU/mL AND a TB Ag minus Nil value from the same HOSPITAL tube of less than 25% of the Nil value. A negative spe cimen must also have a LABORATORY mitogen minus Nil value greater than or equal to 0.5 IU/mL. A negative QFT-Plus result d oes not preclude the possibility of M. tuberculosis infection. False negative re sults can occur due to stage of infection (specimen obtained prior to the development of immune response), co- morbid conditions which affect immune function, or other immunological factors . Comment: The performance of the QFT-Plus assay abbasi s not been extensively evaluated with specimens from the following individuals : Individuals who have impaired or altered immune functions, such as those who have HIV infection or AIDS, those who abbasi ve transplantation managed with immunosuppressive treatment or others wh o receive immunosuppressive drugs (e.g., corticosteroids, methotrexate, az athioprine, cancer chemotherapy), those who have other clinical conditions, such as diabetes, silicosis, chronic renal failure, and hematological disorders (e. g., leukemia and lymphomas), or those with other specific malignancies (e.g., carcinoma of the head or neck and lung). Individuals younger than age 17 years women. Diagnosis of, or the exclusion of tuberc ulosis disease, and assessment of Latent Tuberculosis Infection (LTBI) req uires a combination of epidemiological, historical, Medical and diagnostic findi ngs that should be taken into account when interpreting QFT-Plus results. Specimen Anatomical Collection Method Collection Time Receive d Time (Source) Location / / Volume Laterality Blood specimen 02/21/2020 9:14 AM 020 7:23 (specimen) EST AM EST Resulting Agency Comment Spec In Lab Celi Gonzalez MD CHEMISTRY ORDERABLES Performing Organization Address City/State/[place] [address] (ABNORMAL) Comprehensive metabolic panel (non-fasting) (02/21/2020 9:14 AM EST) athologist Signature Glucose Lvl 91 65 - 199 [facility] mg/dL [facility] Comment: Diabetes: >=200 mg/dL plus symp toms BUN 9 8 - 18 mg/dL [facility]OR[facility] Creatinine 0.62 (L) 0.70 - 1.20 mg/dL [facility] LABOR[facility]ORY Sodium 138 135 - 145 mmol/L [facility] Potassium 4.0 3.5 - 5.0 mmol/L [facility] Comment: Please note: ??Patients with WBC >100,00 0 may have falsely elevated Potassium levels. ??For accurate Potassium quantif ication in these patients send serum separator tube (gold top) for subsequent determinations. ??Contact the Clinical Chemistry Laboratory if there are any qu estions. Chloride 106 98 - 107 mmol/L [facility] CO2 23 22 - 31 mmol/L [facility] Anion Gap 9 5 - 15 mmol/L [facility] LABOR[facility]ORY Calcium 9.6 8.5 - 10.5 mg/dL [facility] Total Protein 7.3 6.1 - 8.0 gm/dL [facility] Albumin 4.7 3.2 - 5.2 gm/dL [facility]OR[facility] AST 14 0 - 30 unit/L [facility] ALT 16 0 - 30 unit/L [facility] Alk Phos 124 (H) 35 - 105 unit/L [facility] Total Bilirubin 0.3 0.2 - 1.3 mg/dL [facility] LABOR[facility] Estimated GFR 119 >=60 mL/min/1.73 m?? [facility] Comment: This patient? s estimated glomerular filtration rate (eGFR) is between 119 mL/min/1.73 m2 (patients with less muscl e mass) and 138 mL/min/1.73 m2 (patients with more muscle mass) as dete rmined by the CKD-EPI equation. Assessment of eGFR is not appropriate wh en creatinine concentrations are rapidly changing. For clinical decisions where creatinine clearance will affect therapy, a 24-hour urine creatinine tomasz curry may be advised. Assignment of CKD stage 1 ? 5 for patients with an eGFR near the transition point between stages may be based on cli nical assessment of muscle mass and symptoms in addition to eGFR. Specimen Anatomical Collection Method Collection Time Receive d Time (Source) Location / / Volume Laterality Blood specimen 02/21/2020 9:14 AM 020 (specimen) EST 12:59 PM EST Resulting Agency Comment Spec In Lab Celi Gonzalez MD CHEMISTRY ORDERABLES Performing Organization Address City/State/[place] [address] documented in this encounter Visit Diagnoses Diagnosis Psoriasis Other psoriasis Psoriatic arthritis Psoriatic arthropathy documented in this encounter Care Teams [employer] Dealer Relationship Specialty Start Date End Date Unknown PCP - General 03/14/18 12/16/20 None documented as of this encounter
--- OUTSIDE RECORDS SUMMARY | 2022-01-13 08:44 | XMS_ITS | Encounter Summary ---
:1985 Author Organization [facility] [place] [address] Care Team Providers Name Role Phone Unknown Primary Care Provider Unavailable Reason for Visit Reason Comments Medication Management Encounter Details Date Type Department Care Team Description 05/20/2020 Specialty Pharmacy [place] [facility] [place]ory Nascimento, [place] [id number] Social History Tobacco Use Types Packs/Day Years Used Date Current Every Day Smoker Cigarettes Smokeless Tobacco: Never Used Sex Assigned at Date Recorded Not on file documented as of this encounter Progress Notes Ivory Nascimento RPH - 05/20/2020 11:09 AM EST Clinical Management Plan: Transfer of Care/Discharge Specialty Services Specialty Pharmacy Consultation; Ivory Nascimento [facility] Comprehensive Medication Management (CMM) Yin Toledo [address] [facility] [phone] Telephone Information: Work Phone Not on file. Is the patient transferring services to a different Specialty Pharmacy or discontinuing the medication? Yes Medication: Otezla Reason for discontinuation or transfer: side effect intolerance Approximate date of discontinuation or transfer: 05/20/20 Patient's response to therapy: improved skin, but could not tolerate Summary of services provided by [facility]: routine consultations and refills Summary of on-going needs: will continue services with Humira Referral for additional services (if applicable): no Is patient aware of referral? N/A Instructions provided to patient about discharge/transfer: no Provider aware of discontinuation or transfer: yes Patient understands no changes to current drug regimen were made at the appointment and that [facility] is providing recommendations (summary located at top of note) for provider review and follow up. Ivory Nascimento RPH 05/20/20 11:09 AM Ivory Nascimento RPH - 05/20/2020 11:09 AM EST Specialty Pharmacy Consultation; Ivory Nascimento RPH Comprehensive Medication Management (CMM) Yin Toledo Diagnosis: Psoriasis and Psoriatic Arthritis Therapy Start Date: TBA Contact in person or via telephone:telephone Ms. Yin Toledo is a 35 y.o. (1985) female who was contacted in regard to specialty medication. Spoke with patient regarding Humira . A review of the medication therapy [...] contacted via telephone for a review of Humira for the treatment of plaque psoriasis and psoriatic arthritis. Patient has [facility] contact information for any questions. Patient was educated on the Humira labeled black box warnings regarding the risk of serious infections including tuberculosis and malignancies. Discussed other precautions with Humira including anaphylaxis/hypersensitivity and hepatitis B reactivation. Patient denies personal history of demyelinating disease or heart failure and was made aware of these precautions as well. Patient was educated on theimportance of infection prevention including best practices for hand hygiene and the annual flu vaccine. Discussed the need to avoid live vaccines during treatment. Dose hold parameters were reviewed including suspected/known infection, prescribed antibiotic therapy, or scheduled surgery. Patient agrees to contact the clinic to review dose hold in these settings. Educated patient on the potential side effects of Humira including injection site reaction, headache, rash, and infections such as URTI/sinusitis. Discussed with patient that it may take 3-4 months to experience the full benefit of Humira. A review of dosing, storage, and administration was completed. Patient was educated on the dosing schedule, 80 mg subcutaneously initially, then 40 mg every 2 weeks beginning 1 week after initial dose.Patient was made aware that Humira must be stored in the refrigerator and remains stable at room temperature for 14 days. Patient was advised on proper site rotation, site sterilization, and allowing the medication to reach room temperature prior to injection. Patient was encouraged to schedule an injection teaching appointment if they prefer to have first injection completed with medical oversight and was directed to view additional online video resources if needed. Breast cancer: history on mom side Dad had heart issues; no personal history No history family or personal of demyelinating Feel likes she is susceptible to illness at baseline; notes becoming sick every time son is becomes sick May opt to do a teaching appointment with her PCP due to distance Clinic follow-up needed: yes - RTC in 3 months Allergies and Drug intolerance: Allergies Allergen Reactions ??? Amoxicillin Hives ??? Bactrim [Sulfamethoxazole-Trimethoprim] Hives Problem List: Patient Active Problem List Diagnosis Code ??? Psoriasis L40.9 ??? Psoriatic arthritis L40.50 Special Dietary or Hydration Requirements: no There is no height or weight on file to calculate BMI. Medication Reconciliation Discrepancies (compared to [facility] med list) -none Medication Adherence Adherence tools used: directed education Support network for adherence: healthcare provider Medication List: Current Outpatient Medications Medication Sig Dispense Refill ??? Humira Pen Ttgs-Jgfmyh-Ouka HS 40 mg/0.8 mL Pen Injector Kit [...] beneficiary Provider: plan sponsor pharmacist Visit Type: [facility] Follow-up Method of Contact: by telephone Cognitive Ability: good Cognitive Impairment Status Verified this Year: no Patient Counseling Counseled the patient on the following: reviewed medication changes since last visit, medication safety precautions education provided, doses and administration discussed, safe handling, storage, and disposal discussed, possible adverse effects and management discussed, possible drug and prescription drug interactions discussed, lab monitoring and follow-up discussed, therapeutic rationale discussed, cost of medications and cost implications discussed, adherence and missed doses discussed, pharmacy contact information discussed, health goals discussed, monitoring medication discussed, preventative care discussed, reminder to refill or picker box operator medication discussed, self-monitoring discussed, start medication discussed, timing of medications discussed, vaccination discussed, referral needs discussed Drug Medication Management Summary Topics discussed: reviewed medication changes since last visit, medication safety precautions education provided, doses and administration discussed, safe handling, storage, and disposal discussed, possible adverse effects and management discussed, possible drug and prescription drug interactions discussed, lab monitoring and follow-up discussed, therapeutic rationale discussed, cost of medications and cost implications discussed, adherence and missed doses discussed, pharmacy contact information discussed, health goals discussed, monitoring medication discussed, preventative care discussed, reminder to refill or picker box operator medication discussed, self-monitoring discussed, start medication discussed, [...] Assessment: Does the patient have a primary care transitions nurse? no Does the patient have an emergency contact on file: Yes Does patient need referral to social work associate: No Does patient need referral to advocacy group: No Home Health Assessment: Is the patient in a safe home environment? Yes Is the patient able to store their medication as directed? Yes Does the patient have a support network at home? Yes Reviewed potential home safety hazards with patient: Yes Economic Assessment: Patient is agreeable to medication copay: Yes Copay Amount: $3.00 Day Supply: 35 Date Needed: TBA Copay assistance required: no Therapy Assessment: Current Medication Dosing/Route/Frequency: Humira 40mg/0.8mL Inject 80mg under the skin on day1, then inject 40mg every 14 days starting on day 8 Appropriate Therapy: Yes Current Affected Areas: scalp, extremities, ears, abdomen Total BSA involved: unknown Recent Skin Exacerbations/Flaring: yes - patient is currently flaring Recent Topical Corticosteroid Use: no Relapsing/Remitting Factors: no Diagnosis of Psoriatic Arthritis: Yes Patient's Problems/Needs: teaching appointment Expected Outcome: patient would like to see skin and joint improvements with minimal side effects Patient's goals: Patient's specific desired goal: patient would like to see at least 50% skin and joint improvements with minimal side effects within 3 to 6 months of starting on Humira Measured by: BSA; joints Time-frame to meet goal: 3 to 6 monts Care Plan Reviewed and Approved by both Pharmacist and Patient: Yes Interventions (if applicable): No Additional care/services needed: yes - teaching appointment Educational information or adherence tools provided: Yes Additional equipment/supplies required: yes - sharps Monitoring requirements for prescribed medication: Improvement of symptoms,TB screening, HBV screening, CBC, signs/symptoms of active infections, heart failure, hypersensitivity, and malignancy Pharmacist follow-up needed: Yes Patient Satisfaction with care/services provided: Yes Informed patient of specialty pharmacy services: Yes -Patient will be provided with welcome packet: Yes Date to be provided: 04/21/20 Delivery Method: mail -Patient will be provided with Rights & Responsibilities: Yes Date to be provided: 04/21/20 Delivery Method: mail -Patient is aware [...] were made at the appointment and that [facility] is providing recommendations (summary located at top of note) for provider review and follow up. Ivory Nascimento RPH 05/20/20 11:36 AM documented in this encounter Plan of Treatment Not on filedocumented as of this encounter Visit Diagnoses Not on filedocumented in this encounter Care Teams Tab Machine Operator Relationship Specialty Start Date End Date Unknown PCP - General 03/14/18 12/16/20 None documented as of this encounter
--- OUTSIDE RECORDS SUMMARY | 2022-01-13 08:45 | XMS_ITS | Encounter Summary ---
:1985 Author Organization [facility] Address [address] [place] [address] Care Team Providers Name Role Phone Jhonny Mckinney MD Primary Care Provider Encounter Details Date Type Department Care Team Description 01/03/2009 Orders Only [facility], Laboratory Services - [place] [id number] [place] [address] [place] [address] [phone] Social History Tobacco Use Types Packs/Day Years Used Date Never Assessed Sex Assigned at Date Recorded Not on file documented as of this encounter Plan of Treatment Not on filedocumented as of this encounter Procedures Procedure Name Priority Date/Time Associated Diagnosis Comme nts CYTOPATHOLOGY Routine 01/03/2009 0:00 EDT Results for this procedure are i n the results section . documented in this encounter Results CYTOPATHOLOGY (01/03/2009 0:00 EDT) Pathology Report: CYTOPATHOLOGY REPORT ? JACOBSEN ALL EN ? LAB Reports generated via electr onic interface contain original data; ? however they are lacking the format of the original report. ? Caution should be taken when reading/interpreting unformatted reports. ? Name: ? SOLITARIO, LEONA ? Accession #: ? [id number] ? : ? 1985 (Age: 23) ??F ?Collect Date: ? 01/03/2009 ? Location: ? [facility] ? Receive Date: ? 01/06/2009 ? Provider: ?SOMMER LAR SEN CNM ? Copy to: ? Specimen/Source: ? Pap Test, Cervix/Endocervix, ThinPrep Imaging System ? with manual evaluation ? Last Menstrual Period: ? Other: ? Additional clinical informat ion: Unsatisfactory smear 08/09 ? HPVA - HPV testing requested if ASC-US on the current ThinPrep Pap test. ? SPECIMEN ADEQUACY ? Satisfactory for Eval uation ? - transformation zone compon ent present ? GENERAL CATEGORIZATION ? Negative for Intraepi thelial Lesion or Malignancy ? Document reviewed and electr onically signed by: ? Manpreet Brinky, CT(ASCP) ? Report Date: ??11/02/ 2009 15:09 ? End of Report ? Specimen Performing Organization Address City/State/[facility] [[email or web address]] Code Phon e Number [facility] [address] [place] [address] SERVICES [facility] [address] [place] [address] documented in this encounter Visit Diagnoses Not on filedocumented in this encounter Care Teams Casing Mixer Relationship Specialty Start Date End Date Jhonny Mckinney MD PCP - General 07/17/08 07/14/09 [address] [place] [address] documented as of this encounter
--- OUTSIDE RECORDS SUMMARY | 2022-01-13 08:45 | XMS_ITS | Encounter Summary ---
:1985 Author Organization [facility] Address [address] [place] [address] Care Team Providers Name Role Phone Unknown, Provider Primary Care Provider Encounter Details Date Type Department Care Team Description 07/24/2019 Lab Requisition [facility] Outr Resulting Lab, Pathology & Laboratory Provider [facility] [address] [place] [address] Social History Tobacco Use Types Packs/Day Years Used Date Never Assessed Sex Assigned at Date Recorded Not on file documented as of this encounter Plan of Treatment Not on filedocumented as of this encounter Procedures Procedure Name Priority Date/Time Associated Comments Diagnosis DO NOT ORDER Today 07/24/2019 10:55 Results for this STANDALONE - BROAD EDT procedure are in COVID TEST the results section. COVID-19 TESTING Routine 07/24/2019 10:55 Results for this EDT procedure are i n the results section. documented in this encounter Results DO NOT ORDER STANDALONE - BROAD COVID TEST (07/24/2019 10:55 EDT) COVID-19 rt-PCR NEGATIVE Negative [facility] Result Comment: LABORATORY 2019-novel Coronavirus (2019 -nCoV) not detected by the qRT-PCR assay. Consider testing for other respiratory viruses or re-collecting for 2019-nCoV testing. Note: Optimum timing for peak viral levels du ring infections caused by 20 -nCoV have not been determined. Collection of multiple specimens from the same patient may be necessary to detect the virus. Limitations Positive results are indicat kenny of active infection with SARS-CoV-2 but do not rule out bacterial infection or co-infection with other viruses. The agent detected may not be the definite cause of diseas e. In addition, detection of viral RNA may not indicate the presence of infectious virus or that SARS-CoV-2 is the causative agent for clinical symptoms. Negative results do not prec lude SARS-CoV-2 infection and should not be used as the sole basis for patient management decisions. Negative results must be combined with clinical observations, patient his tory, and epidemiological in formation. False negative results may also occur if amplification inhibitors are present in the specimen or if inadequate numbers of organisms are present in the specimen. Op timum specimen types and dane ing for peak viral levels during infections caused by SARS-CoV-2 have not been fully determined. Collection of multiple specimens (types and time points) from the same patient may be necessary to detect the virus. The test was validated for u se with upper respiratory specimens obtained via nasopharyngeal or oropharyngeal swabs in VTM, UTM, M4, M5, M6, saline, and MTM media. The performance of this test has not be en established for other spe cimens. Specimens collected using other FDA recommended Specimen Collection Materials listed in the FDA COVID-19 Diagnostic Technologies communication (June 07, 2019) are pr ocessed with the caveat that they were not all validated for use with this test and the result must be interpreted in this context. Furthermore, a false negative results may occur if a specimen is improperly collected, transported or handled. If the virus mutates in the RT-PCR target region, SARS-CoV-2 may not be detected or may be detected less predictably. Inhibitors or other types of interference may produce a false negative result. An interference study evaluating the effect of common cold medications was not performed. This test is not FDA-cleared but its performance characteristics were established by our CLIA-certified, CAP-accredited, high complexity laboratory in accordance with CLIA regulations, [employer] (CAP) guidel yolanda (May 31, 2019), and FDA guidance (May 12, 2019). This test is only for use un isidra the Food and Drug Administration's Emergency Use Authorization. Specimen Swab - Entire nasopharynx (body structur e) Performing Organization Address City/State/ZIP Code Phon e Number [facility] [place], [place] COVID-19 TESTING (07/24/2019 10:55 EDT) COVID-19 rt-PCR NEGATIVE Negative [facility] Result Comment: LABORATORY 2019-novel Coronavirus (2019 -nCoV) not detected by the qRT-PCR assay. Consider testing for other respiratory viruses or re-collecting for 2019-nCoV testing. Note: Optimum timing for peak viral levels du ring infections caused by 20 -nCoV have not been determined. Collection of multiple specimens from the same patient may be necessary to detect the virus. Limitations Positive results are indicat kenny of active infection with SARS-CoV-2 but do not rule out bacterial infection or co-infection with other viruses. The agent detected may not be the definite cause of diseas e. In addition, detection of viral RNA may not indicate the presence of infectious virus or that SARS-CoV-2 is the causative agent for clinical symptoms. Negative results do not prec lude SARS-CoV-2 infection and should not be used as the sole basis for patient management decisions. Negative results must be combined with clinical observations, patient his tory, and epidemiological in formation. False negative results may also occur if amplification inhibitors are present in the specimen or if inadequate numbers of organisms are present in the specimen. Op timum specimen types and dane ing for peak viral levels during infections caused by SARS-CoV-2 have not been fully determined. Collection of multiple specimens (types and time points) from the same patient may be necessary to detect the virus. The test was validated for u with upper respiratory specimens obtained via nasopharyngeal or oropharyngeal swabs in VTM, UTM, M4, M5, M6, saline, and MTM media. The performance of this test has not be en established for other spe cimens. Specimens collected using other FDA recommended Specimen Collection Materials listed in the FDA COVID-19 Diagnostic [employer] communication (June 07, 2019) are pr ocessed with the caveat that they were not all validated for use with this test and the result must be interpreted in this context. Furthermore, a false negative results may occur if a specimen is improperly collected, transported or handled. If the virus mutates in the RT-PCR target region, SARS-CoV-2 may not be detected or may be detected less predictably. Inhibitors or other types of interference may produce a false negative result. An interference study evaluating the effect of common cold medications was not performed. This test is not FDA-cleared but its performance characteristics were established by our CLIA-certified, CAP-accredited, high complexity laboratory in accordance with CLIA regulations, College of [employer] an Pathologists (CAP) guidel yolanda (May 31, 2019), and FDA guidance (May 12, 2019). This test is only for use un isidra the Food and Drug Administration's Emergency Use Authorization. Performing Lab [facility] LABORATORY SERVICES Specimen Swab - Entire nasopharynx (body structur e) Performing Organization Address City/State/ZIP Code Phon e Number [facility] [address] [place] [address] SERVICES [facility] [place], [place] documented in this encounter Visit Diagnoses Not on filedocumented in this encounter Care Teams Cosmetology Instructor Relationship Specialty Start Date End Date Unknown, Provider, PCP - General 07/27/16 documented as of this encounter
--- OUTSIDE RECORDS SUMMARY | 2022-01-13 08:45 | XMS_ITS | Encounter Summary ---
:1985 Author Organization [facility] Address [address] [place] [address] Care Team Providers Name Role Phone Jhonny Mckinney MD Primary Care Provider Encounter Details Date Type Department Care Team Description 06/12/[address] [facility] Omi Lacy am, MD Services - [place] All en [address] [address] Social History Tobacco Use Types Packs/Day Years Used Date Never Assessed Sex Assigned at Date Recorded Not on file documented as of this encounter Plan of Treatment Not on filedocumented as of this encounter Procedures Procedure Name Priority Date/Time Associated Diagnosis Comme [facility] CYTOPATHOLOGY Routine 06/12/2009 0:00 EDT Results for this procedure are i n the results section . documented in this encounter Results CYTOPATHOLOGY (06/12/2009 0:00 EDT) Pathology Report: CYTOPATHOLOGY REPORT ? JACOBSEN ALL EN ? LAB Reports generated via [employer] interface contain original data; ? however they are lacking the format of the original report. ? Caution should be taken when reading/interpreting unformatted reports. ? Name: ? LEONA SOLITARIO ? Accession #: ? [id number] ? : ? 1985 (Age: 24) ??F ?Collect Date: ? 06/12/2009 ? Location: ? [facility] ? Receive Date: ? 06/16/2009 ? Provider: ?ARCADIO LACY MD ? Copy to: ? Specimen/Source: ? Pap Test, Cervix/Endocervix, ThinPrep Imaging System ? with manual evaluation ? Last Menstrual Period: ? Menstrual/ Status: ? Previous Gynecologic Patholo gy: ? ASC-US: 10/08, 4/09 ? HPV: + HR HPV 4/09, pap 10/0 9 WNL ? Other: ? HPVA - HPV testing requested if ASC-US on the current ThinPrep Pap test. ? SPECIMEN ADEQUACY ? Satisfactory for Eval uation ? - transformation zone compon ent present ? GENERAL CATEGORIZATION ? Negative for Intraepi thelial Lesion or Malignancy ? INTERPRETATION ? Fungal organisms pres ent morphologically consistent with Erica species. ? Document reviewed and electr onically signed by: ? EVA Farr( CP) ? Report Date: ??04/12/ 2010 14:15 ? End of Report ? Specimen Performing Organization Address City/[facility]/ZIP Code Phon e Number [facility] [address] [place] [address] SERVICES [facility] [address] [place] [address] documented in this encounter Visit Diagnoses Not on filedocumented in this encounter Care Teams Landfill Gas Collection Operator Relationship Specialty Start Date End Date Jhonny Mckinney MD PCP - General 07/17/08 07/14/09 [address] [place] [address] documented as of this encounter
--- OUTSIDE RECORDS SUMMARY | 2022-01-13 08:45 | XMS_ITS | Encounter Summary ---
:1985 Author Organization [facility] Address [address] [place] [address] Care Team Providers Name Role Phone Unknown, Provider Primary Care Provider Encounter Details Date Type Department Care Team Description 01/14/2017 Hospital Encounter [facility]- [place] Unknown, Provider, Sklyer Ortiz MD [address] [facility] [phone] [place] [address] (Work) [phone] Social History Tobacco Use Types Packs/Day Years Used Date Never Assessed Sex Assigned at Date Recorded Not on file documented as of this encounter Discharge Disposition Disposition Code Departure Means Destination Home or Self Half-Way documented in this encounter Plan of Treatment Not on filedocumented as of this encounter Visit Diagnoses Not on filedocumented in this encounter Care Teams Silo Operator Relationship Specialty Start Date End Date Unknown, Provider, PCP - General 07/27/16 documented as of this encounter
--- OUTSIDE RECORDS SUMMARY | 2022-01-13 08:45 | XMS_ITS | Encounter Summary ---
:1985 Author Organization [facility] Address [address] [place] [address] Care Team Providers Name Role Phone Jhonny Mckinney MD Primary Care Provider Encounter Details Date Type Department Care Team Description 12/29/2007 Before PRISM [facility] - Sommer Felix Converted Visit Maple conversion MIS De La Cruz (Maple) [id number] [place] [phone] (Wo rk) Social History Tobacco Use Types Packs/Day Years Used Date Never Assessed Sex Assigned at Date Recorded Not on file documented as of this encounter Plan of Treatment Not on filedocumented as of this encounter Procedures Procedure Name Priority Date/Time Associated Comments Diagnosis HPV DETECTION, HIGH Routine 12/29/2007 14:52 Resu lts for this RISK TYPES EDT procedure are i n the results section. CYTOPATHOLOGY Routine 12/29/2007 0:00 Results for this EDT procedure are i n the results section. documented in this encounter Results HUMAN PAPILLOMA VIRUS DNA TEST (12/29/2007 14:52 EDT) Specimen Description Cervix, ThinPrep [facility] vial Result Quantity not sufficient. [facility] Credit Issued Report Status Final [facility] 01/05/2008 Specimen Performing Organization Address City/State/ZIP Code Phon e Number [facility] [address] [place] [address] SERVICES [facility] [address] [place] [address] CYTOPATHOLOGY (12/29/2007 0:00 EDT) Pathology Report: CYTOPATHOLOGY REPORT ? JACOBSEN ALL EN ? LAB Reports generated via electr onic interface contain original data; ? however they are lacking the format of the original report. ? Caution should be taken when reading/interpreting unformatted reports. ? Name: ? SOLITARIO, LEONA ? Accession #: ? [id number] ? : ? 1985 (Age: 22) ??F ?Collect Date: ? 12/29/2007 ? Location: ? [facility] ? Receive Date: ? 01/01/2008 ? Provider: ?SOMMER LAR SEN CNM ? Copy to: ? Specimen/Source: ? Pap Test, Cervix/Endocervix, ThinPrep Imaging System ? with manual evaluation ? Last Menstrual Period: ? Other: ? HPVA - HPV testing requested if ASC-US on the current ThinPrep Pap test. ? SPECIMEN ADEQUACY ? Satisfactory for Eval uation ? - transformation zone compon ent present ? GENERAL CATEGORIZATION ? Epithelial Cell Abnor mality ? INTERPRETATION ? Squamous Cell Abnorma lity - Atypical squamous cells, undetermined ? significance (ASC-US). ? EDUCATIONAL NOTES/RECOMMENDA TIONS ? [facility] recommends mango wing the 2006 Consensus Guidelines for the Management of Women with Abnormal Cervi orin Cancer Screening Tests (JLGTD, ? 2007;11(4):201-222). ??Conse nsus guidelines are available online at ? www.ASCCP.org. ? Document reviewed and electr onically signed by: ? Abdkelseymonem Elhomaria de jesusy , MD ? Report Date: ??10/23/ 2008 12:44 ? End of Report ? Specimen Performing Organization Address City/State/[facility] Code Phon e Number [facility] [address] [place] [address] SERVICES [facility] [address] [place] [address] documented in this encounter Visit Diagnoses Not on filedocumented in this encounter Care Teams Spanish Moss Picker Relationship Specialty Start Date End Date Jhonny Mckinney MD PCP - General 07/17/08 07/14/09 [address] [place] [address] documented as of this encounter
--- OUTSIDE RECORDS SUMMARY | 2022-01-13 08:45 | XMS_ITS | Encounter Summary ---
:1985 Author Organization [facility] Address [address] [place] [address] Care Team Providers Name Role Phone Shanika Scales NP Primary Care Provider Unavailable Jhonny Mckinney MD Primary Care Provider Encounter Details Date Type Department Care Team Description 01/13/2007 Results Only [facility] - Sommer Knight, conversion CNM [id number] [place] [phone] (Wo rk) Social History Tobacco Use Types Packs/Day Years Used Date Never Assessed Sex Assigned at Date Recorded Not on file documented as of this encounter Plan of Treatment Not on filedocumented as of this encounter Procedures Procedure Name Priority Date/Time Associated Diagnosis Comme nts CYTOPATHOLOGY Routine 01/13/2007 0:00 EDT Results for this procedure are i n the results section . documented in this encounter Results CYTOPATHOLOGY (01/13/2007 0:00 EDT) Pathology Report: CYTOPATHOLOGY REPORT [facility] Reports generated via electronic interface contain martha ginal data; however they are lacking the format of the original re port. Caution should be taken when reading/interpreting unfo rmatted reports. Name: ? LEONA SOLITARIO ? Accession #: ? [id number] : ? 1985 (Age: 21) ??F ?Collect Date: ? 04/2006 Location: ? [facility] ? Receive Date : ? 01/16/2007 Provider: ?SOMMER PETERSEN CNM Copy to: ? Specimen/Source: ? ThinPrep Pap Test, Cervix/Endocervix, processed on [employer] ThinPrep Imaging System, with manual evaluation Last Menstrual Period: ? 12/02/06 Menstrual/ Status: ? Other: ? HPVA - HPV testing requested if ASC-US on the current ThinPrep Pap test. ? SPECIMEN ADEQUACY ? Satisfactory for Evaluation - transformation zone component present GENERAL CATEGORIZATION ? Negative for Intraepithelial Lesion or Malignan cy ? Document reviewed and electronically signed by: ? EVA Huff(ASCP) ? Report Date: ??01/19/2007 09:38 End of Report Specimen Performing Organization Address City/State/ZIP Code Phon e Number [facility] [address] [place] [address] SERVICES [facility] [address] [place] [address] documented in this encounter Visit Diagnoses Not on filedocumented in this encounter Care Teams Afternoon Babysitter Relationship Specialty Start Date End Date Shanika Scales NP PCP - General 07/15/09 07/26/16 Jhonny Mckinney MD PCP - General 07/17/08 07/14/09 [address] [place] [address] documented as of this encounter
--- OUTSIDE RECORDS SUMMARY | 2022-01-13 08:45 | XMS_ITS | Encounter Summary ---
:1985 Author Organization [facility] Address [address] [place] [address] Care Team Providers Name Role Phone YordyShanika hensley LENARD Primary Care Provider Unavailable Encounter Details Date Type Department Care Team Description 07/16/2009 Results Only [facility]- Parker Vigil MD [phone] Social History Tobacco Use Types Packs/Day Years Used Date Never Assessed Sex Assigned at Date Recorded Not on file documented as of this encounter Plan of Treatment Not on filedocumented as of this encounter Procedures Procedure Name Priority Date/Time Associated Comments Diagnosis [facility] ULTRASCREEN 07/16/2009 14:29 Results for this (INCLUDES SEQUENTIAL EDT procedu re are in SCREEN) the results section. documented in this encounter Results [facility] ULTRASCREEN (07/16/2009 14:29 EDT) Anatomical Region Laterality Modality Other Specimen Narrative [facility] RAD[facility] - 07/16/2009 14:47 EDT Indication: Nuchal translucency screenin g. History: Age: 24 years. : 2 Para: 1. Previous pregnancies: Children born at term: 1. Living childre n: 1. LMP not known. Dating: Earlier Assessment on: 06/02/2009 EDC: 1 03/28/2009 GA by earlier assessment: 12w2d Current Scan on: 07/16/2009 EDC: 010 GA by current scan: 12w6d Best Overall Assessment: 07/16/2009 EDC: 01/26/2010 Assessed GA: 12w2d The calculation of the gestational age b y current scan was based on CRL. The Best Overall Assessment is based on an earlier assessment on 06/02/2009. General Evaluation: heart activity: Present. hea rt rate: 152 bpm. movement: present. First Trimester Scan: Almonte gestation. Biometry: CRL 64.9 mm 82nd% 12w6d (11w6d to 13w6d) NT 1.80 mm Additional Markers for Risk Assessment: Nasal bone present. ?? Tricuspid flow not examined. ??Ductus Ve nosus (a-wave): Not examined. Report Summary: Impression: NOTE: This study was ordered as an NT ONLY so maternal and anatomy assessments were not p erformed. [id number] Nuchal translucency measurement This is a almonte gestation. Nuchal translucency is 1.8 mm. Omphalocele is not present. Note that ACOG Practice Bulletin 77 poin ts out that the inclusion of second trimester serum markers improve d etection rates for Down syndrome; however if you wish to combine second trimester analytes, you must send the serum to [facility] at 1 5-16 weeks'. They will reanalyze the results including both fir st and second trimester serum as well as nuchal translucency and mater nal age. If you do not wish to include second trimester serum for an euploidy screening, you may still send serum to [facility] for MSAFP alone to screen for neural tube defects and other obstetrics outcomes as sociated with an elevated MSAFP. Recommendations: Follow-up as clinically indicated. Procedure Note 07/16/2009 Indication: Nuchal translucency screenin g. History: Age: 24 years. : 2 Para: 1. Previous pregnancies: Children born at term: 1. Living childre n: 1. LMP not known. Dating: Earlier Assessment on: 06/02/2009 EDC: 1 03/28/2009 GA by earlier assessment: 12w2d Current Scan on: 07/16/2009 EDC: 010 GA by current scan: 12w6d Best Overall Assessment: 07/16/2009 EDC: 01/26/2010 Assessed GA: 12w2d The calculation of the gestational age b y current scan was based on CRL. The Best Overall Assessment is based on an earlier assessment on 06/02/2009. General Evaluation: heart activity: Present. hea rt rate: 152 bpm. movement: present. First Trimester Scan: Almonte gestation. Biometry: CRL 64.9 mm 82nd% 12w6d (11w6d to 13w6d) NT 1.80 mm Additional Markers for Risk Assessment: Nasal bone present. Tricuspid flow not examined. Ductus Veno giselle (a-wave): Not examined. Report Summary: Impression: NOTE: This study was ordered as an NT ONLY so maternal and anatomy assessments were not p erformed. [id number] Nuchal translucency measurement This is a almonte gestation. Nuchal translucency is 1.8 mm. Omphalocele is not present. Note that ACOG Practice Bulletin 77 poin ts out that the inclusion of second trimester serum markers improve d etection rates for Down syndrome; however if you wish to combine second trimester analytes, you must send the serum to [facility] at 1 5-16 weeks'. They will reanalyze the results including both fir st and second trimester serum as well as nuchal translucency and mater nal age. If you do not wish to include second trimester serum for an euploidy screening, you may still send serum to [facility] for MSAFP alone to screen for neural tube defects and other obstetrics outcomes as sociated with an elevated MSAFP. Recommendations: Follow-up as clinically indicated. Performing Organization Address City/State/ZIP Code Phon e Number [facility] documented in this encounter Visit Diagnoses Not on filedocumented in this encounter Care Teams Aircraft Line Assembler Relationship Specialty Start Date End Date Shanika Scales NP PCP - General 07/15/09 07/26/16 documented as of this encounter
--- OUTSIDE RECORDS SUMMARY | 2022-01-13 08:45 | XMS_ITS | Encounter Summary ---
:1985 Author Organization [facility] Address [address] [place] [address] Care Team Providers Name Role Phone Shanika Scales POOL MANAGER Primary Care Provider Unavailable Encounter Details Date Type Department Care Team Description 07/23/2016 Results Only [facility]- PRISM Juan Camacho MD [phone] [address] [place] [phone] (Wo rk) Social History Tobacco Use Types Packs/Day Years Used Date Never Assessed Sex Assigned at Date Recorded Not on file documented as of this encounter Plan of Treatment Not on filedocumented as of this encounter Procedures Procedure Name Priority Date/Time Associated Diagnosis Comme [facility] SURGICAL PATHOLOGY Routine 07/23/2016 8:37 EDT Re sults for this procedure are i n the results section. documented in this encounter Results SURGICAL PATHOLOGY (07/23/2016 8:37 EDT) Pathology Report: SURGICAL PATHOLOGY REPORT [facility] Reports generated via electronic interface contain martha ginal data; LABORATORY however they are lacking the format of the original re port. SERVICES Caution should be taken when reading/interpreting unfo rmatted reports. Name: ? LEONA TOLEDO ? Accession #: ? [id number] ? : ? 1985 (Age: 31 ) ??F ? Collect Date: ? 07/23/2016 ? Location: ? [facility] ? Receive Date: ? 07/27/19 17 ? Provider: JUAN CAMACHO MD Copy to: ? Final Pathologic Diagnosis: GALLBLADDER, CHOLECYSTECTOMY: - Chronic cholecystitis with cholelithiasis. Document reviewed and electronically signed by: CHARLIE RIVERS MD Report ??Date: 07/29/2016 17:19 By the signature above, the attending physician certif ies that he/she has personally conducted a gross and/or microscopic examin ation of the described specimens and rendered or confirmed the above diagnosi s. Specimen(s) Received: Gallbladder and contents Clinical History: Cholecystitis Gross Description: ? Received in formalin labelled with proper patient identification (initials P, J) and gallbladder and c ontents is a previously disrupted gallbladder (6.8 x 2.8 x 1.1 cm) with attached cystic duct (1.0 cm in l ength x 0.5 cm in diameter). The cystic duct margin is inked blue. ? The serosa is jones-pink, smooth, and glistening, with two lacerations exposing the underlying mucosa. The muco sa is jones-pink and roughened. The wall thickness ranges from 0.2-0.3 cm. Within the container is a single black ovoid gallstone (2.3 x 2.1 x 1.5 cm). The cystic duct lumen is patent. ? Two vaccine customer representative se ctions and the inked en face cystic duct margin are submitted in 1. CR Rios (ASCP) 07/26/2016 9:05 AM End of Report Specimen Performing Organization Address City/State/ZIP Code Phon e Number [facility] [address] [place] [address] SERVICES documented in this encounter Visit Diagnoses Not on filedocumented in this encounter Care Teams Product Developer Relationship Specialty Start Date End Date Shanika Scales NP PCP - General 07/15/09 07/26/16 documented as of this encounter
--- OUTSIDE RECORDS SUMMARY | 2022-01-13 08:45 | XMS_ITS | Encounter Summary ---
:1985 Author Organization [facility] Address [address] [place] [address] Care Team Providers Name Role Phone Unknown, Provider Primary Care Provider Encounter Details Date Type Department Care Team Description 07/15/2020 Lab Requisition [facility] Outr Resulting Lab, Pathology & Laboratory Provider [facility] [address] [place] [address] Social History Tobacco Use Types Packs/Day Years Used Date Never Assessed Sex Assigned at Date Recorded Not on file documented as of this encounter Plan of Treatment Not on filedocumented as of this encounter Procedures Procedure Name Priority Date/Time Associated Diagnosis Comme nts COVID-19 TEST [facility] Today 07/15/2020 13:50 LAB PCR EDT COVID-19 TESTING Routine 07/15/2020 13:50 Results for this EDT procedure are i n the results section. documented in this encounter Results COVID-19 TEST [facility] LAB PCR (07/15/2020 13:50 EDT) Specimen Swab - Entire nasopharynx (body structur e) Performing Organization Address City/State/ZIP Code Phon e Number [facility] [address] [place] [address] SERVICES COVID-19 TESTING (07/15/2020 13:50 EDT) COVID-19 rt-PCR Negative Negative [facility] Result Comment: [facility]ENTER LABORATORY This test has not been FDA c leared or approved. This test has been authorized by FDA under an EUA for use by authorized laboratories. This test has been authorized only for detection of nucleic acid fro SERVICES m 2018-nCoV, not for any oth er viruses or pathogens. This test is only authorized for the duration of the declaration that circumstances exist justifying the authorization of emergency use of in vitro d iagnostic tests for detectio n and/or diagnosis of 2019-nCoV under section 564(b)(1) of Act, 21 U.S.C ?? 360bbb-3(b) (1), unless the authorization is terminated or revoked sooner. Negative results do not prec lude 2019-nCoV infection and should not be used as the sole basis for treatment or other patient management decisions. Negative results must be combined with clinical observa tions, patient history, and epidemiological informatio n. Testing was performed using the abeba SARS-CoV-2 assay ([employer] on the Abeba 6800 System Performing Lab [address] [facility] Lab [facility] SERVICES Specimen Swab Performing Organization Address City/State/ZIP Code Phon e Number [facility] [address] [place] [address] SERVICES documented in this encounter Visit Diagnoses Not on filedocumented in this encounter Care Teams Lunch Wagon Operator Relationship Specialty Start Date End Date Unknown, Provider, PCP - General 07/27/16 documented as of this encounter
--- OUTSIDE RECORDS SUMMARY | 2022-01-13 08:45 | XMS_ITS | Encounter Summary ---
:1985 Author Organization [facility] Address [address] [place] [address] Care Team Providers Name Role Phone Unavailable Primary Care Provider Unavailable Encounter Details Date Type Department Care Team Description 07/05/2008 Orders Only [facility] Sommer Felix, Laboratory Services - [address] [address] [place] [address] [phone] Social History Tobacco Use Types Packs/Day Years Used Date Never Assessed Sex Assigned at Date Recorded Not on file documented as of this encounter Plan of Treatment Not on filedocumented as of this encounter Procedures Procedure Name Priority Date/Time Associated Comments Diagnosis HPV DETECTION, HIGH Routine 07/05/2008 11:19 Resu lts for this RISK TYPES EDT procedure are i n the results section. CYTOPATHOLOGY Routine 07/05/2008 0:00 Results for this EDT procedure are i n the results section. documented in this encounter Results HUMAN PAPILLOMA VIRUS DNA TEST (07/05/2008 11:19 EDT) Specimen Description Cervix, ThinPrep [facility]ial LAB Result Positive for one or more of HPV types 16,18,31,33,35,39,45,51,52,56,58,59, or 68. These JACOBSEN Betsy DE LA FUENTE high/intermediate risk HPV t ypes are associated with dysplasia and some cervical cancers. LAB Report Status Final [facility] 07/18/2008 LAB Specimen Performing Organization Address City/State/ZIP Code Phon e Number [facility] [address] [place] [address] SERVICES [facility] [address] [place] [address] CYTOPATHOLOGY (07/05/2008 0:00 EDT) Pathology Report: CYTOPATHOLOGY REPORT ? [facility] ? LAB Reports generated via [employer] interface contain original data; ? however they are lacking the format of the original report. ? Caution should be taken when reading/interpreting unformatted reports. ? Name: ? SOLITARIO, LEONA ? Accession #: ? [id number] ? : ? 1985 (Age: 23) ??F ?Collect Date: ? 07/05/2008 ? Location: ? [facility] ? Receive Date: ? 07/08/2008 ? Provider: ?SOMMER LAR SEN CNM ? Copy to: ? Specimen/Source: ? Pap Test, Cervix/Endocervix, ThinPrep Imaging System ? with manual evaluation ? Last Menstrual Period: ? 03/30/09 ? Hormonal/Contraceptive Statu s: ? Yes ? Previous Gynecologic Patholo gy: ? ASC-US: 10/08 ? Other: ? HPVA - HPV testing requested if ASC-US on the current ThinPrep Pap test. ? SPECIMEN ADEQUACY ? Satisfactory for Eval uation ? - transformation zone compon ent present ? GENERAL CATEGORIZATION ? Epithelial Cell Abnor mality ? INTERPRETATION ? Squamous Cell Abnorma lity - Atypical squamous cells, undetermined ? significance (ASC-US). ? EDUCATIONAL NOTES/RECOMMENDA TIONS ? [facility] recommends mango knapp the 2006 Consensus Guidelines for the Management of Women with Abnormal Cervi orin Cancer Screening Tests (JLGTD, ? 2007;11(4):201-222). ??Conse nsus guidelines are available online at ? www.ASCCP.org. ? Document reviewed and electr onically signed by: ? Kadeem Hess MD ? Report Date: ??05/01/ 2009 15:05 ? End of Report ? Specimen Performing Organization Address City/State/ZIP Code Phon e Number [facility] [address] [place] [address] SERVICES [facility] [address] [place] [address] documented in this encounter Visit Diagnoses Not on filedocumented in this encounter
--- OUTSIDE RECORDS SUMMARY | 2022-01-13 08:45 | XMS_ITS | Encounter Summary ---
:1985 Author Organization [facility] Address [address] [place] [address] Care Team Providers Name Role Phone Jhonny Mckinney MD Primary Care Provider Encounter Details Date Type Department Care Team Description 10/24/2008 Orders Only [facility] Sommer Felix, Laboratory Services - [id number] [place] [address] [place] [address] [phone] Social History Tobacco Use Types Packs/Day Years Used Date Never Assessed Sex Assigned at Date Recorded Not on file documented as of this encounter Plan of Treatment Not on filedocumented as of this encounter Procedures Procedure Name Priority Date/Time Associated Diagnosis Comme nts CYTOPATHOLOGY Routine 10/24/2008 0:00 EDT Results for this procedure are i n the results section . documented in this encounter Results CYTOPATHOLOGY (10/24/2008 0:00 EDT) Pathology Report: CYTOPATHOLOGY REPORT ? JACOBSEN ALL EN ? LAB Reports generated via electr onic interface contain original data; ? however they are lacking the format of the original report. ? Caution should be taken when reading/interpreting unformatted reports. ? Name: ? SOLITARIO, LEONA ? Accession #: ? [id number] ? : ? 1985 (Age: 23) ??F ?Collect Date: ? 10/24/2008 ? Location: ? [facility] ? Receive Date: ? 10/28/2008 ? Provider: ?SOMMER LAR SEN CNM ? Copy to: ? Specimen/Source: ? Pap Test, Cervix/Endocervix, ThinPrep Imaging System ? with manual evaluation ? Last Menstrual Period: ? Previous Gynecologic Patholo gy: ? ASC-US: 10/08, 4/09 ? ASC-US: 4/09 HR ? Other: ? HPVA - HPV testing requested if ASC-US on the current ThinPrep Pap test. ? SPECIMEN ADEQUACY ? Unsatisfactory for Ev aluation, ? - insufficient numbers of sq uamous epithelial cells (less than 10% of expected ?? cellularity) ? - sample preparation comprom ised by excessive blood ? GENERAL CATEGORIZATION ? Specimen processed an d examined, but unsatisfactory for evaluation of ? epithelial abnormality. ? Recommend repeat Pap test or further follow up, as clinically indicated. ? Document reviewed and electr onically signed by: ? Donnie Dee, CT (ASCP) ? Report Date: ??2008 12:56 ? End of Report ? Specimen Performing Organization Address City/State/ZIP Code Phon e Number [facility] [address] [place] [address] SERVICES [facility] [address] [place] [address] documented in this encounter Visit Diagnoses Not on filedocumented in this encounter Care Teams Panelboard Tank Pumper Relationship Specialty Start Date End Date Jhonny Mckinney MD PCP - General 07/17/08 07/14/09 [address] [place] [address] documented as of this encounter
--- OUTSIDE RECORDS SUMMARY | 2022-01-13 08:45 | XMS_ITS | Encounter Summary ---
:1985 Author Organization [facility] Address [address] [place] [address] Care Team Providers Name Role Phone Jhonny Mckinney MD Primary Care Provider Encounter Details Date Type Department Care Team Description 10/11/2008 Orders Only [facility] Donavan Hardy, Psychiatry - S Prosp ect [address] [place] [id number] [place] [phone] (Wo rk) Social History Tobacco Use Types Packs/Day Years Used Date Never Assessed Sex Assigned at Date Recorded Not on file documented as of this encounter Plan of Treatment Not on filedocumented as of this encounter Procedures Procedure Name Priority Date/Time Associated Diagnosis Comme nts CYTOPATHOLOGY Routine 10/11/2008 0:00 EDT Results for this procedure are i n the results section . documented in this encounter Results CYTOPATHOLOGY (10/11/2008 0:00 EDT) Pathology Report: CYTOPATHOLOGY REPORT ? [facility] ? LAB Reports generated via electr onic interface contain original data; ? however they are lacking the format of the original report. ? Caution should be taken when reading/interpreting unformatted reports. ? Name: ? SOLITARIO, LEONA ? Accession #: ? [id number] ? : ? 1985 (Age: 23) ??F ?Collect Date: ? 10/11/2008 ? Location: ? [facility] ? Receive Date: ? 10/14/2008 ? Provider: ?SISSY HARDY MD ? Copy to: ? Specimen/Source: ? Pap Test, Cervix/Endocervix, ThinPrep Imaging System ? with manual evaluation ? Last Menstrual Period: ? 07/21/09 ? Previous Gynecologic Patholo gy: ? ASC-US: 10/08 & 04/09 ? HPV: + HR 04/09 ? Other: ? HPVA - HPV testing requested if ASC-US on the current ThinPrep Pap test. ? SPECIMEN ADEQUACY ? Unsatisfactory for Ev aluation, ? - insufficient numbers of sq uamous epithelial cells (less than 10% of expected ?? cellularity) ? GENERAL CATEGORIZATION ? Specimen processed an d examined, but unsatisfactory for evaluation of ? epithelial abnormality. ? Recommend repeat Pap test or further follow up, as clinically indicated. ? Document reviewed and electr onically signed by: ? Shanika Quezada, SCT( ASCP) ? Report Date: ??08/04/ 2009 15:08 ? End of Report ? Specimen Performing Organization Address City/State/ZIP Code Phon e Number [facility] [address] [place] [address] SERVICES [facility] [address] [place] [address] documented in this encounter Visit Diagnoses Not on filedocumented in this encounter Care Teams Analytics Senior Manager Relationship Specialty Start Date End Date Jhonny Mckinney MD PCP - General 07/17/08 07/14/09 [address] [place] [address] documented as of this encounter
--- OUTSIDE RECORDS SUMMARY | 2022-01-13 08:45 | XMS_ITS | Encounter Summary ---
:1985 Author Organization [facility] Address [address] [place] [address] Care Team Providers Name Role Phone Shanika Scales BLAST FURNACE HELPER Primary Care Provider Unavailable Encounter Details Date Type Department Care Team Description 03/17/2010 Results Only [facility] Sommer Felix, Laboratory Services - [id number] [place] [address] [place] [address] [phone] Social History Tobacco Use Types Packs/Day Years Used Date Never Assessed Sex Assigned at Date Recorded Not on file documented as of this encounter Plan of Treatment Not on filedocumented as of this encounter Procedures Procedure Name Priority Date/Time Associated Diagnosis Comme [facility] CYTOPATHOLOGY Routine 03/17/2010 0:00 EST Results for this procedure are i n the results section . documented in this encounter Results CYTOPATHOLOGY (03/17/2010 0:00 EST) Pathology Report: CYTOPATHOLOGY REPORT ? [facility] ? LAB Reports generated via IFTTT interface contain original data; ? however they are lacking the format of the original report. ? Caution should be taken when reading/interpreting unformatted reports. ? Name: ? SOLITARIO, LEONA ? Accession #: ? [id number] ? : ? 1985 (Age: 24) ??F ?Collect Date: ? 03/17/2010 ? Location: ? [facility] ? Receive Date: ? 03/18/2010 ? Provider: ?SOMMER LAR SEN CNM ? Copy to: ? Specimen/Source: ? Pap Test, Cervix/Endocervix, ThinPrep Imaging System ? with manual evaluation ? Last Menstrual Period: ? Previous Gynecologic Patholo gy: ? ASC-US: 10/08 & 04/09 ? HPV: + HR 04/09 ? Other: ? Additional clinical informat ion: Paps 10/09 & 04/10 wnl ? SPECIMEN ADEQUACY ? Satisfactory for Eval uation ? - transformation zone compon ent present ? GENERAL CATEGORIZATION ? Negative for Intraepi thelial Lesion or Malignancy ? Document reviewed and electr onically signed by: ? Bradley Stumler, CT( CP) ? Report Date: ??01/10/ 2011 14:38 ? End of Report ? Specimen Performing Organization Address City/State/ZIP Code Phon e Number [facility] [address] [place] [address] SERVICES [facility] [address] [place] [address] documented in this encounter Visit Diagnoses Not on filedocumented in this encounter Care Teams Day Haul Youth Supervisor Relationship Specialty Start Date End Date Shanika Scales NP PCP - General 07/15/09 07/26/16 documented as of this encounter
--- OUTSIDE RECORDS SUMMARY | 2022-01-13 08:45 | XMS_ITS | Clinical Summary ---
:1985 Author Organization [facility] Address [address] [place] [address] Care Team Providers Name Role Phone Unknown, Provider Primary Care Provider Encounters Date Type Specialty Care Team Description 12/02/2021 Lab Requisition Clinical Laboratory Outr Resulting Lab , Provider from Last 3 Months Social History Tobacco Use Types Packs/Day Years Used Date Never Assessed Sex Assigned at Date Recorded Not on file Plan of Treatment Health Maintenance Due Date Last Done Comments Hepatitis C Screen 1985 COVID-19 Vaccine (#1) 1985 Procedures Procedure Name Priority Date/Time Associated Comments Diagnosis CHLAMYDIA/N. Routine 12/02/2021 17:00 Results for this GONORRHOEAE AMPLIFIED EDT proced ure are in RNA the results section. from Last 3 Months Results CHLAMYDIA/N. GONORRHOEAE AMPLIFIED RNA (12/02/2021 17:00 EDT) Pathologist Sig nature Gonococcus Result Negative Negative [facility] Chlamydia Result Negative Negative [facility] Specimen Swab - Entire vagina (body structure) Performing Organization Address City/State/ZIP Code Phon e Number [facility] [address] [place] [address] SERVICES from Last 3 Months Insurance Payer Benefit Plan Subscriber ID Effective Phone Address Typ e / Group Dates MEDICAID ACO MEDICAID ACO [id number] 2021-Pres [phone] [address] Medicaid [place] ent [address] [facility] [id number] [place] Personal/Family Self 1985 [address] [phone] [employer] [place] (Work) [id number] [place] Personal/Family Self 1985 [address] [phone] [employer] [place] (Work) [id number] [place] Personal/Family Self 1985 [address] [phone] [employer] [place] (Work) [id number] [place] Personal/Family Self 1985 [address] [phone] [place] (Work) [id number] Care Teams Rip Tailer Relationship Specialty Start Date End Date Unknown, Provider, PCP - General 07/27/16
--- OUTSIDE RECORDS SUMMARY | 2022-01-13 08:45 | XMS_ITS | Encounter Summary ---
:1985 Author Organization [facility] Address [address] [place] [address] Care Team Providers Name Role Phone Shanika Scales NP Primary Care Provider Unavailable Encounter Details Date Type Department Care Team Description 07/23/2016 Hospital Encounter [facility]- [place] Unknown, Provider, [facility] [address] [facility] [phone] [place] [address] (Work) [phone] Social History Tobacco Use Types Packs/Day Years Used Date Never Assessed Sex Assigned at Date Recorded Not on file documented as of this encounter Discharge Disposition Disposition Code Departure Means Destination Home or Self Senior Care documented in this encounter Plan of Treatment Not on filedocumented as of this encounter Visit Diagnoses Not on filedocumented in this encounter Care Teams Derrickman Helper Relationship Specialty Start Date End Date Shanika Scales NP PCP - General 07/15/09 07/26/16 documented as of this encounter
--- OUTSIDE RECORDS SUMMARY | 2022-01-13 08:45 | XMS_ITS | Encounter Summary ---
:1985 Author Organization [facility] Address [address] [place] [address] Care Team Providers Name Role Phone Unknown, Provider Primary Care Provider Encounter Details Date Type Department Care Team Description 06/01/2019 Lab Requisition [facility] Unknown, Provider, Pathology & Laboratory [facility] [address] [facility] [place] [address] [phone] Social History Tobacco Use Types Packs/Day Years Used Date Never Assessed Sex Assigned at Date Recorded Not on file documented as of this encounter Plan of Treatment Not on filedocumented as of this encounter Procedures Procedure Name Priority Date/Time Associated Comments Diagnosis CHLAMYDIA/N. Routine 06/01/2019 16:20 Results for this GONORRHOEAE AMPLIFIED EDT proced ure are in RNA the results section. documented in this encounter Results CHLAMYDIA/N. GONORRHOEAE AMPLIFIED RNA (06/01/2019 16:20 EDT) Pathologist Sig nature Gonococcus Result Negative Negative [facility] Chlamydia Result Negative Negative [facility] Specimen Swab - Entire wall of cervix (body struc ture) Performing Organization Address City/State/ZIP Code Phon e Number [facility] [address] [place] [address] SERVICES documented in this encounter Visit Diagnoses Not on filedocumented in this encounter Care Teams Switchboard Wirer Relationship Specialty Start Date End Date Unknown, Provider, PCP - General 07/27/16 documented as of this encounter
--- NOTE | 2022-01-13 09:00 | DI.RAD_ITS ---
Exam(s) XR ANKLE RT COMPLETE EXAM: XR ANKLE RT COMPLETE CLINICAL HISTORY: Popping. TECHNIQUE: 2D digital imaging was performed. Three views. COMPARISON: No exams were available for comparison FINDINGS: The exam is somewhat limited by suboptimal positioning. BONES: No acute fracture is present. No bony destructive lesion is seen. JOINTS: The ankle mortise is normally aligned. SOFT TISSUE: Swelling around lateral malleolus. Chronic appearing bony density beneath the tip of th e lateral malleolus. IMPRESSION: No acute abnormality. DATA REPOSITORY: RADIATION DOSE DELIVERED:
--- NOTE | 2022-01-13 09:00 | DI.RAD_ITS ---
Exam(s) XR KNEE RT 3V AP,LAT,MICKY EXAM: XR KNEE RT 3V AP,LAT,MICKY CLINICAL HISTORY: Medial joint pain. TECHNIQUE: 2D digital imaging was performed. Three views. COMPARISON: No exams were available for comparison FINDINGS: BONES: No acute fracture is present. No bony destructive lesion is seen. JOINTS: The knee is normally aligned. No joint effusion is seen. SOFT TISSUE: Normal. IMPRESSION: Unremarkable radiographs of the right knee. DATA REPOSITORY: RADIATION DOSE DELIVERED:
[2022-01-13 09:02] VITALS: BP 149/90; PULSE 85; RESP 18; TEMP 37; O2SAT 99
--- NOTE | 2022-01-13 09:05 | W.ED.GENAD ---
Discharge Plan Disposition Patient Disposition: HOME Condition: Stable Discharge Details Clinical Impression: Right knee sprain, Ankle pain, chronic Primary Care Provider: Rupali Lynn ED Provider: Chitra Castro Home Meds and New Rx's Prescriptions: No Action Taltz Autoinjector 80 mg/mL auto-injector 1 ea SUBCUT Q4W Mirena 20 mcg/24 hr (5 years) Intrauterine Device 1 insert INTRAUTERINE ONCE albuterol sulfate 90 mcg/actuation Hfa Aerosol Inhaler 2 puff INHALATION Q6H PRN Discharge Instructions Instructions: Knee Sprain (ED), Arthralgia (ED) Additional Instructions: X-rays are normal of the knee. I do suspect a sprain. Wear the hinged knee brace as needed for comfort. The ankle x-ray shows a chronic appearing bone density between the tip of the lateral malleolus which is the bone on the outside of your ankle. You may have previously injured this or this may be a congenital abnormality or something you were born with. May wear the Jeovany wrap for comfort on your ankle. Please consider following up with orthopedics or your primary care provider if this continues to bother you. Please take Tylenol or Ibuprofen with food every 4-6 hours as needed for pain and swelling. Follow up with primary care provider in 3-5 days. Return to ED sooner if any worsening or concerns. Increase oral fluids. Stand Alone Forms: Work Release Referrals: Rupali Lynn [Primary Care Provider] - 1 week Hector Suarez MD [ [facility] STAFF PHYSICIAN] - Return if symptoms worsen Medical Decision Making 36-year-old female presents to the ER with chief complaint of right knee pain which began yesterday after lifting some heavy boxes she is complaining of medial joint pain. She also reports that her ankle has been popping her months. No falls. X-ray knee and ankle were ordered at patient request. Patient was placed in a hinged knee brace and given an jeovany wrap for her ankle. Discussed results with her she verbalized understanding. This text was generated using Emotientation system, please disregard any oddities of phrase or misspellings. HPI General Mode of arrival: ambulatory. Date/Time Provider Initiated Documentation: 01/13/22 08:40. Limitations to Documentation: no limitations. Information obtained by: patient, RN notes reviewed and old records reviewed. HPI Narrative: 36-year-old female presents to the ER with chief complaint of right knee pain which began yesterday after lifting some heavy boxes she is complaining of medial joint pain. She also reports that her ankle has been popping her months. No falls. She did take some Tylenol last night with little to no relief. Did not take anything this morning. She denies any chance of she does have Mirena IUD. No obvious deformity or swelling no erythema. She is a smoker. Past medical history of asthma. Related Data Home Medications Medication Instructions Recorded Confirmed albuterol sulfate 90 mcg/actuation 2 puff inhalation Q6H PRN 11/15/17 01/13/22 aerosol inhaler levonorgestrel 20 mcg/24 hours (8 1 insert intrauterine ONCE 11/15/17 01/13/22 yrs) 52 mg intrauterine device (Mirena) ixekizumab 80 mg/mL subcutaneous 1 ea subcut Q4W 01/13/22 01/13/22 auto-injector (Taltz Autoinjector) Allergies Allergy/AdvReac Type Severity Reaction Status Date / Time amoxicillin Allergy Unverified 01/13/22 09:06 sulfamethoxazole Allergy Hives Unverified 01/13/22 09:06 [From Bactrim] trimethoprim [From Bactrim] Allergy Hives Unverified 01/13/22 09:06 General Stated Complaint: Orthopedic JANESSA: 4 Review of Systems Musculoskeletal Musculoskeletal: Reports as per HPI, Reports arthralgias, Reports joint swelling and Reports stiffness PFSH All Active Problems (Updated 01/13/22 @ 09:54 by Chitra Castro NP) Right knee sprain (Acute) Ankle pain, chronic (Acute) Medical History (Updated 01/13/22 @ 09:54 by Chitra Castro NP) Asthma Surgical History H/O section Hx of cholecystectomy Social History Smoking/Tobacco Use Status: Current every day Tobacco Type: cigarettes Smoking risk assessment performed?: Yes Alcohol Intake: never Drug use: Occasionally Substance use type: marijuana Do you feel safe at home: Yes Do you feel safe in your relationship?: Yes Exam Extrem General: normal to inspection Right lower extremity: normal capillary refill, no joint enlargement, knee Details: normal to inspection and tenderness Location: of the medial joint line and ankle Details: normal to inspection; no cyanosis and no edema Course Vital Signs Vital signs: Vital Signs Temperature 37.0 C 01/13/22 09:02 Pulse 85 01/13/22 09:02 Respiratory Rate 18 01/13/22 09:02 Blood Pressure 149/90 H 01/13/22 09:02 Pulse Oximetry 99 01/13/22 09:02 Temperature 37.0 C 01/13/22 09:02 Temperature Source Temporal Artery Scan 01/13/22 09:02 Pulse 85 01/13/22 09:02 Respiratory Rate 18 01/13/22 09:02 Blood Pressure 149/90 H 01/13/22 09:02 Blood Pressure Position Sitting 01/13/22 09:02 Pulse Oximetry 99 01/13/22 09:02 Oxygen Delivery Method Room Air 01/13/22 09:02 Oxygen Flow Rate 0 01/13/22 09:02 Pain Level 8 01/13/22 09:02
[2022-01-13] MEDS: Ibuprofen 600 MG TAB PO (09:11)
== END 2022-01-13 10:07 | disposition home or self-care (01) ==
PROVIDERS: Emergency Provider Registered Nurse Emergency; PCP Physician Assistant Medical
DX: S83.91XA Sprain of unspecified site of right knee, initial encounter (principal); M25.571 Pain in right ankle and joints of right foot; X50.0XXA Overexertion from strenuous movement or load, initial encounter
CPT/HCPCS: 29505; 73562; 99284; 73610; 99282

== ENCOUNTER 2022-06-30 17:14 | Emergency (ER) | payer MEDICAID, SELFPAY ==
[2022-06-30 17:18] VITALS: BP 129/74; PULSE 102; RESP 16; TEMP 37.3; O2SAT 98
--- NOTE | 2022-06-30 17:47 | ED.GENADUL_ITS ---
Discharge Plan Disposition Patient Disposition: Home Discharge Details Clinical Impression: Back pain, lumbosacral Primary Care Provider: Rupali Lynn ED Provider: Ameya Carreon Home Meds and New Rx's Prescriptions: New prednisone 20 mg tablet 40 mg PO DAILY Qty: 8 0RF cyclobenzaprine 10 mg tablet 10 mg PO TID PRN (Reason: muscle spasm) Qty: 15 0RF Continued Taltz Autoinjector 80 mg/mL auto-injector 1 ea SUBCUT Q4W Mirena 20 mcg/24 hr (5 years) Intrauterine Device 1 insert INTRAUTERINE ONCE albuterol sulfate 90 mcg/actuation Hfa Aerosol Inhaler 2 puff INHALATION Q6H PRN Discharge Instructions Instructions: Back Pain (ED) Additional Instructions: Continue to take iatk-jge-cmyqihl pain medication as discussed. Please perform light duty activities as tolerated and follow-up with your primary care provider for reassessment or if not improving. If you develop any severe symptoms such as significant weakness or dysfunction of your lower extremities, change in bowel or bladder habits, fever chills, or further concerns feel free to return the emergency department for reassessment. Referrals: Rupali Lynn [Primary Care Provider] - 1 week Discharge Data Discharge Date/Time-TO BE ENTERED AT DEPARTURE: 06/30/22 18:02 Medical Decision Making Patient presenting to the emergency department for chief complaint of back pain. She states that she had been bending over and went to stand up approximately 3 weeks ago when she felt something pull in her back. For the first 2 days pain was mild but over the last week or so has noted more increase of pain and discomfort. Patient denies any fever chills, IV drug use, saddle anesthesia, change in bowel or bladder function. Does state some radiating pain into hips and legs. Physical exam shows some lumbar spinal tenderness that is diffuse nonfocal otherwise unremarkable exam. Patient does report that she has been seen twice already by primary care provider and another ER and did have radiological imaging performed which she stated showed some narrowing of a portion of her back but otherwise no other findings noted. I do feel patient is at LOW risk for ABDOMINAL AORTIC ANEURYSM, CAUDA EQUINA SYNDROME, EPIDURAL MASS LESION, SPINAL STENOSIS, OR HERNIATED DISK CAUSING SEVERE STENOSIS, thus I consider the discharge disposition reasonable. We have discussed the diagnosis and risks, and we agree with discharging home to follow-up with their primary doctor. We also discussed returning to the Emergency Department immediately if new or worsening symptoms occur. We have discussed the symptoms which are most concerning (e.g., saddle anesthesia, urinary or bowel incontinence or retention, changing or worsening pain) that necessitate immediate return. Patient recommended to continue use of NSAIDs and will place patient on steroids and Flexeril to see if this helps given radiating symptoms. After discussion of diagnosis and plan of care patient has no further needs, questions, or concerns and states clear understanding to return to the emergency department for any worsening symptoms. This documentation was generated using First Look Mediaation system, please disregard any oddities of phrase or misspellings. HPI General Mode of arrival: ambulatory . Date/Time Provider Initiated Documentation: 06/30/22 17:24 . Limitations to Documentation: no limitations . Information obtained by: patient and RN notes reviewed . History of Present Illness 37 year old F presents to the emergency department with the chief c omplaint of Back pain, described as moderate, with intensity rated at 7. Quality is described as aching, and is localized to the back. Patient reports no radiation. Patient started experiencing this week(s) (3) and it has been constant. Rest improves symptom(s), Movement worsens symptoms . Patient notes no other symptoms.. Patient did receive the following treatments prior to arrival, NSAID Related Data Home Medications Medication Instructions Recorded Confirmed albuterol sulfate 90 mcg/actuation 2 puff inhalation Q6H PRN 11/15/17 06/30/22 aerosol inhaler levonorgestrel 21 mcg/24 hours (8 1 insert intrauterine ONCE 11/15/17 06/30/22 yrs) 52 mg intrauterine device (Mirena) ixekizumab 80 mg/mL subcutaneous 1 ea subcut Q4W 01/13/22 06/30/22 auto-injector (Taltz Autoinjector) cyclobenzaprine 10 mg tablet 10 mg PO TID PRN muscle spasm #15 06/30/22 tabs prednisone 20 mg tablet 40 mg PO DAILY #8 tabs 06/30/22 Previous Rx's Medication Instructions Recorded cyclobenzaprine 10 mg tablet 10 mg PO TID PRN muscle spasm #15 06/30/22 tabs prednisone 20 mg tablet 40 mg PO DAILY #8 tabs 06/30/22 Allergies Allergy/AdvReac Type Severity Reaction Status Date / Time amoxicillin Allergy Unverified 01/13/22 09:06 sulfamethoxazole Allergy Hives Unverified 01/13/22 09:06 [From Bactrim] trimethoprim [From Bactrim] Allergy Hives Unverified 01/13/22 09:06 General Stated Complaint: Nk/Back Pain JANESSA: 4 Review of Systems Constitutional Constitutional: Denies chills and Denies fever(s) Cardiovascular Cardiovascular: Denies chest pain and Denies dyspnea on exertion Respiratory Respiratory: Denies cough and Denies dyspnea on exertion Gastrointestinal Gastrointestinal: Denies abdominal pain, Denies change in bowel habits, Denies diarrhea, Denies nausea and Denies vomiting Genitourinary Genitourinary: Denies urinary incontinence Musculoskeletal Musculoskeletal: Reports as per HPI and Reports back pain Neurologic Neurologic: Denies sensory deficit PFSH All Active Problems (Updated 06/30/22 @ 17:47 by Ameya Carreon NP) Back pain, lumbosacral (Acute) Medical History (Updated 06/30/22 @ 17:47 by Ameya Carreon NP) Asthma Surgical History H/O section Hx of cholecystectomy Social History Smoking/Tobacco Use Status: Current every day Tobacco Type: cigarettes Smoking risk assessment performed?: Yes Alcohol Intake: never Drug use: Occasionally Substance use type: marijuana Do you feel safe at home: Yes Do you feel safe in your relationship?: Yes Exam Const General: cooperative and no acute distress Orientation: alert, awake and oriented x3 Neck Neck: normal visual inspection, full ROM and no meningeal signs Resp Effort & Inspection: normal respiratory effort Auscultation: clear to auscultation bilaterally Cardio Rate: regular rate Rhythm: regular rhythm Heart Sounds: S1 normal and S2 normal GI Palpation: no hepatosplenomegaly, no aortic enlargement, no masses and no pulsatile masses Back/Spine/Pelvis Thoracic/Lumbar Spine: pain with thoraco-lumbar ROM, No paraspinal tenderness, thoraco-lumbar ROM limited, No thoracic spinal tenderness, lumbar spinal tenderness and straight leg raise positive Pelvis: no pain with anterior-posterior compression and no pain with lateral compression Neuro General: patient alert, patient awake and patient oriented x3 Motor: muscle tone normal throughout Sensory Exam: no sensory deficits noted DTR's: Rt Patellar: 2+, Lt Patellar: 2+, Rt Ankle: 2+ and Lt Ankle: 2+ Extrem General: full ROM and normal gait Course Vital Signs Vital signs: Vital Signs Temperature 37.3 C 06/30/22 17:18 Pulse 102 H 06/30/22 17:18 Respiratory Rate 16 06/30/22 17:18 Blood Pressure 129/74 06/30/22 17:18 Pulse Oximetry 98 06/30/22 17:18 Temperature 37.3 C 06/30/22 17:18 Temperature Source Oral 06/30/22 17:18 Pulse 102 H 06/30/22 17:18 Respiratory Rate 16 06/30/22 17:18 Blood Pressure 129/74 06/30/22 17:18 Blood Pressure Position Sitting 06/30/22 17:18 Pulse Oximetry 98 06/30/22 17:18 Oxygen Delivery Method Room Air 06/30/22 17:18 Oxygen Flow Rate 0 06/30/22 17:18 Pain Level 10 06/30/22 17:18
[2022-06-30] MEDS: Cyclobenzaprine 10 MG TAB, 3 TABS/BTL PO (18:01)
== END 2022-06-30 18:02 | disposition home or self-care (01) ==
PROVIDERS: Emergency Provider Nurse Practitioner Family; PCP Physician Assistant Medical
DX: M54.89 Other dorsalgia (principal)
CPT/HCPCS: 99283

== ENCOUNTER 2022-12-19 04:55 | Emergency (ER) | payer MEDICAID, SELFPAY ==
--- NOTE | 2022-12-19 04:45 | RT.EKG_ITS ---
APPROVED REPORT Exam: Resting ECG Reason for Exam: chest tightness Patient Location: E HR:93 bpm ECG Measurements Heart Rate 93 AXIS MI 150 P 46 QRSd 103 QRS 89 QT 366 T -5 QTc 455 Conclusion Sinus rhythm...normal P axis, V-rate 60- 99 Normal sinus rhythm at a rate of 93 with interventricular conduction delay and a QRS of 103 ms. Norm al axis. MI and QTc within normal limits. No ST segment abnormalities. T wave flattening in lead I II. No acute injury pattern. No prior for comparison.
--- NOTE | 2022-12-19 04:56 | W.ED.GENAD ---
Discharge Plan Disposition Patient Disposition: Home Discharge Details Clinical Impression: Exacerbation of RAD (reactive airway disease), Atypical pneumonia Primary Care Provider: Rupali Lynn ED Provider: Cesar Guzmán Home Meds and New Rx's Prescriptions: New prednisone 50 mg tablet 50 mg PO DAILY Qty: 4 0RF Rx Instructions: Please begin taking tomorrow as you have received steroids in the emergency department doxycycline hyclate 100 mg capsule 100 mg PO BID 5 Days Qty: 10 0RF Continued Taltz Autoinjector 80 mg/mL auto-injector 1 ea SUBCUT Q4W prednisone 20 mg tablet 40 mg PO DAILY Qty: 8 0RF cyclobenzaprine 10 mg tablet 10 mg PO TID PRN (Reason: muscle spasm) Qty: 15 0RF Mirena 20 mcg/24 hr (5 years) Intrauterine Device 1 insert INTRAUTERINE ONCE albuterol sulfate 90 mcg/actuation Hfa Aerosol Inhaler 2 puff INHALATION Q6H PRN Discharge Instructions Instructions: Reactive Airways Disease (ED) Additional Instructions: Shortness ofYou are seen in the emergency department for your breast. Your x-ray showed concern for a possible pneumonia for which a prescription has been sent for an antibiotic that you should take as directed. Your viral swab was negative for COVID, influenza, and RSV. You received steroids in the emergency department. A prescription has been sent to your pharmacy for 4 more days of steroids which you should begin taking tomorrow. Please use your nebulizer at home. Please return to the emergency department if you develop shortness of breath fevers or any worsening difficulty breathing or pain in your chest. HPI General Date/Time Provider Initiated Documentation: 12/19/22 04:56. HPI Narrative: HPI This is a 37-year-old female with a history of tobacco use and reactive airway disease arriving to the emergency department now via private vehicle in the setting of wheezing that began last night. Patient reported that 1 week ago she had cold symptoms and congestion. Subsequently she developed a cough that lasted several days. Yesterday she began wheezing. She has never had a PE nor DVT. She has had no recent steroids. She denies fevers nausea vomiting. She mentioned to triage that she had some chest tightness. She is adamant about denying any chest pain. Patient had no sore throat. She has attempted symptomatic treatment at home with humidified air, DayQuil and NyQuil. She has a history of bronchitis and pneumonia. She had minimal improvement at home with her inhaler. She has a refill for her nebulizer which has been sent by her primary care provider to her pharmacy. No dysuria nor frequency. No abdominal pain. Exam General: Well-appearing in no acute distress speaking in complete sentences. Head: Normocephalic, atraumatic. Eye: Extraocular eye movements intact. No conjunctival injection. No scleral icterus. Ear, nose, mouth, throat: Grossly normal inspection. Normal voice, handling secretions normally. Neck: Trachea midline. Cardiovascular: Well-perfused distal extremities. Regular rate and rhythm. Respiratory: Nonlabored respiration. Mildly prolonged end expiratory wheeze. No accessory muscle use. No stridor. Gastrointestinal: Nondistended abdomen. Musculoskeletal: No edema. Moving all 4 extremities spontaneously. Skin: Normal for age and race, grossly normal temperature and turgor. No acute rash. Neurologic: Alert and appropriate, no apparent acute deficits. Psychiatric: Mood and manner are appropriate. Grooming and personal hygiene are appropriate. MDM This is an overall very well-appearing mildly tachycardic but normothermic 37-year-old smoker with history of reactive airway disease now with mildly prolonged expiratory phase concerning for acute exacerbation of reactive airway disease for which patient will receive steroids. Patient declined nebulization treatment in the ED and reports that she has nebulizers at home. She endorsed a tightness in her chest for which an ECG was performed out of triage. Patient and I discussed her symptoms and she reported that she was not having any chest pain. She never had a PE nor DVT and as result my suspicion was exceedingly low for PE. Patient was not technically PERC negative secondary to her tachycardia at the time of triage which resolved without intervention. Her chest tightness certainly could be the result of her acute exacerbation of her reactive airway disease based on her prolonged expiratory phase. Nonetheless patient was adamant about not having chest pain so I did not send a D-dimer. In the absence of chest pain and given her nonischemic ECG I did not send a troponin as my suspicion for ACS was exceedingly low. No nausea nor vomiting to suggest any increased risk for acute electrolyte abnormalities so I did not send a basic metabolic panel. No fevers so my suspicion is low for pneumonia however will obtain a portable chest x-ray to assess for infiltrate. Given current uptick in COVID cases will also swab for COVID, influenza, and RSV. We will send a prescription for a short burst of prednisone to the patient's pharmacy starting tomorrow for the next 4 days as she received 60 mg prednisone in the emergency department. No pain out of proportion to suggest necrotizing soft tissue infection. In the absence of chest pain and trauma my suspicion for pneumothorax is exceedingly low. No abdominal pain so doubt intra-abdominal infection. No sore throat so my suspicion was low for retropharyngeal abscess and peritonsillar abscess. 5:50 AM Tachycardia resolved in the ED without intervention. Negative serum hCG. 6:02 AM COVID influenza RSV all negative. Radiology read the patient's x-ray as diffuse prominence of pulmonary interstitium. They noted that this may be related to edema or atypical pneumonia. Will discharge patient on 5-day course of doxycycline to cover atypicals. I met with the patient and explained the concerns and radiology for possibility of atypical pneumonia. I felt that the benefits of 5 days of doxycycline outweighed the harms. Patient agreed. I advised ED return if she developed worsening shortness of breath any chest pain or any fevers. Otherwise we will proceed with empiric trial of expectant outpatient management and PCP follow-up as needed. Patient's vital signs notable for elevated blood pressure. Chronic conditions affecting the care of the patient: Reactive airway disease & tobacco use History obtained from an outside historian: N/A [place] [facility] [place]Diagnostic interpretations performed by me:] [Per my independent interpretation chest x-ray shows:] Bilateral increased interstitial markings right greater than left. [Per my independent interpretation EKG shows:] Normal sinus rhythm at a rate of 93 with interventricular conduction delay and a QRS of 103 ms. Normal axis. NC and QTc within normal limits. No ST segment abnormalities. T wave flattening in lead III. No acute injury pattern. No prior for comparison. Medications: Steroids & doxycycline Social determinants of health affecting disposition: N/A Management discussed with: N/A Treatment/interventions considered: Nebulization but deferred based on patient preference Response to therapies provided: No significant change in the emergency department Related Data Home Medications Medication Instructions Recorded Confirmed albuterol sulfate 90 mcg/actuation 2 puff inhalation Q6H PRN 11/15/17 06/30/22 aerosol inhaler levonorgestrel 21 mcg/24 hours (8 1 insert intrauterine ONCE 11/15/17 06/30/22 yrs) 52 mg intrauterine device (Mirena) ixekizumab 80 mg/mL subcutaneous 1 ea subcut Q4W 01/13/22 06/30/22 auto-injector (Taltz Autoinjector) cyclobenzaprine 10 mg tablet 10 mg PO TID PRN muscle spasm #15 06/30/22 tabs prednisone 20 mg tablet 40 mg PO DAILY #8 tabs 06/30/22 doxycycline hyclate 100 mg capsule 100 mg PO BID 5 days #10 caps 12/19/22 prednisone 50 mg tablet 50 mg PO DAILY #4 tabs 12/19/22 Previous Rx's Medication Instructions Recorded cyclobenzaprine 10 mg tablet 10 mg PO TID PRN muscle spasm #15 06/30/22 tabs prednisone 20 mg tablet 40 mg PO DAILY #8 tabs 06/30/22 doxycycline hyclate 100 mg capsule 100 mg PO BID 5 days #10 caps 12/19/22 prednisone 50 mg tablet 50 mg PO DAILY #4 tabs 12/19/22 Allergies Allergy/AdvReac Type Severity Reaction Status Date / Time amoxicillin Allergy Unverified 01/13/22 09:06 sulfamethoxazole Allergy Hives Unverified 01/13/22 09:06 [From Bactrim] trimethoprim [From Bactrim] Allergy Hives Unverified 01/13/22 09:06 General JANESSA: 4 PFSH All Active Problems (Updated 12/19/22 @ 06:06 by Cesar Guzmán MD) Exacerbation of RAD (reactive airway disease) (Acute) Atypical pneumonia (Acute) Medical History (Updated 12/19/22 @ 06:06 by Cesar Guzmán MD) Asthma Surgical History H/O section Hx of cholecystectomy Social History Smoking/Tobacco Use Status: Current every day Tobacco Type: cigarettes Smoking risk assessment performed?: Yes Alcohol Intake: never Drug use: Occasionally Substance use type: marijuana Do you feel safe at home: Yes Do you feel safe in your relationship?: Yes
[2022-12-19 04:58] VITALS: BP 156/99; PULSE 102; RESP 18; TEMP 36.7; O2SAT 96
[2022-12-19 05:01] VITALS: RESP 18
[2022-12-19 05:02] VITALS: PULSE 100; RESP 18; TEMP 36.9; O2SAT 96
--- NOTE | 2022-12-19 05:15 | DI.RAD_ITS ---
Exam(s) XR PORTABLE CHEST AP EXAM: XR PORTABLE CHEST AP CLINICAL HISTORY: Shortness of breath TECHNIQUE: 2D digital imaging was performed of the chest. One image was obtained. An AP view was ob tained. COMPARISON: CR XR CHEST 2V PA LATERAL from 11/15/2017 FINDINGS: MEDIASTINUM: Normal. HEART: Normal. PULMONARY VASCULATURE: Normal. LUNGS: There is mildly prominent interstitial lung markings. No focal consolidation is seen. PLEURAL SPACE: No pleural effusion or pneumothorax. BONE:Within normal limits for the patient's age. OTHER FINDINGS:Normal. IMPRESSION: Diffuse prominence of the pulmonary interstitium. This may be related to edema or atypical pneumonia . Please correlate clinically. DATA REPOSITORY: RADIATION DOSE DELIVERED:
[2022-12-19 05:18] VITALS: PULSE 84
[2022-12-19] MEDS: predniSONE 20 MG TAB 60 MG PO (05:30)
[2022-12-19 05:39] LABS: HCG Qual (Serum) Negative
[2022-12-19 05:55] LABS: COVID-19 PCR Negative (Negative); Influenza A PCR Negative (Negative); Influenza B PCR Negative (Negative); RSV PCR Negative (Negative)
--- NOTE | 2022-12-19 06:00 | DI.VRAD_ITS ---
PROCEDURE INFORMATION: Exam: XR Chest Exam date and time: 12/19/2022 5:49 AM Age: 37 years old Clinical indication: Shortness of breath TECHNIQUE: Imaging protocol: Radiologic exam of the chest. Views: 1 view. COMPARISON: CR XR CHEST 2V PA LATERAL 11/15/2017 9:21 AM FINDINGS: Lungs: Diffuse prominence of the pulmonary interstitium. Pleural spaces: Unremarkable. No pleural effusion. No pneumothorax. Heart/Mediastinum: Unremarkable. No cardiomegaly. Bones/joints: Unremarkable. IMPRESSION: Diffuse prominence of the pulmonary interstitium. This may be related to edema or atypical pneumonia Dictated and Authenticated by: Ruba Turcios MD. Ordering:MALINA Guerrero MD
[2022-12-19 06:01] LABS: Source Nasopharynx
[2022-12-19] MEDS: Doxycycline Hyclate 100 MG CAP PO (06:07)
[2022-12-19 06:08] VITALS: PULSE 77; O2SAT 98
--- NOTE | 2022-12-19 09:08 | NUR.NOTE ---
Nursing Note: PT called and would like prescriptions sent to [facility] in [place].
--- NOTE | 2022-12-19 10:16 | NUR.NOTE ---
Accessed Pts chart to prepare to call Pharmacy. There was no answer from the Pharmacy. Will try to call laterNursing Note:
--- NOTE | 2022-12-19 11:53 | NUR.NOTE ---
I was able to speak to Sindy in Pharmacy at [facility] to give verbal prescriptions. Pt was unable to pick them up from her primary drug store due to them being closed.
== END 2022-12-19 06:20 | disposition home or self-care (01) ==
PROVIDERS: Emergency Provider Emergency Medicine; PCP Physician Assistant Medical
DX: R06.02 Shortness of breath; J45.901 Unspecified asthma with (acute) exacerbation; R00.0 Tachycardia, unspecified; Z88.1 Allergy status to other antibiotic agents; Z88.2 Allergy status to sulfonamides; Z72.0 Tobacco use
CPT/HCPCS: 87637; 93005; 99285; 71045; 84703; 93010; 99284; J7512

== ENCOUNTER 2023-04-22 10:38 | Emergency (ER) | payer MEDICAID, SELFPAY ==
[2023-04-22 10:55] VITALS: BP 179/115; PULSE 98; RESP 18; TEMP 37; O2SAT 98
[2023-04-22 11:46] LABS: Abs Immature Grans 0.06 10^3/uL (0.0-0.06); Absolute Eosinophil Count 0.19 10^3/uL (0.0-0.7); Absolute Lymphocyte Count 4.26 10^3/uL (1.2-3.4); Absolute Neutrophil Count 10.46 10^3/uL (1.2-6.7); Basophils % 0.4; Eosinophils % 1.2; HCT 41.4 % (36.0-46.0); HGB 14.1 g/dL (11.2-15.7); Immature Grans % 0.4; Lymphocytes % 26.4; MCH 29.5 pg (27.0-33.0); MCHC 34.1 % (32.0-36.0); MCV 87 fL (80-95); MPV 8.7 fL (8.0-11.0); Monocytes % 6.8; Neutrophils % 64.8; Platelet Count 342 10^3/uL (130-400); RBC 4.78 10^6/uL (3.93-5.22); RDW 12.8 % (11.7-14.6); RDW-SD 40.5 fL; WBC 16.14 10^3/uL (4.4-10.8)
[2023-04-22 11:47] LABS: Absolute Basophil Count 0.06 10^3/uL (0.0-0.2)
--- NOTE | 2023-04-22 11:49 | W.ED.GENAD ---
HPI General Mode of arrival: ambulatory. Date/Time Provider Initiated Documentation: 04/22/23 10:58. Limitations to Documentation: no limitations. Information obtained by: patient. History of Present Illness 38 year old F presents to the emergency department with the chief complaint of Back pain, mid, described as moderate, with intensity rated at 6. Quality is described as aching, and is localized to the back. Patient reports no radiation. Patient started experiencing this day(s) (3) and it has been constant. No relieving factors improve symptom(s), Other factors that worsen symptoms (Deep breathing, coughing) . Patient notes fever/chills (Subjective fever). Patient did receive the following treatments prior to arrival, none Related Data Home Medications Medication Instructions Recorded Confirmed albuterol sulfate 90 mcg/actuation 2 puff inhalation Q6H PRN 11/15/17 04/22/23 aerosol inhaler levonorgestrel 21 mcg/24 hours (8 1 insert intrauterine ONCE 11/15/17 04/22/23 yrs) 52 mg intrauterine device (Mirena) ixekizumab 80 mg/mL subcutaneous 1 ea subcut Q4W 01/13/22 04/22/23 auto-injector (Taltz Autoinjector) levofloxacin 750 mg tablet 750 mg PO DAILY #5 tabs 04/22/23 Previous Rx's Medication Instructions Recorded levofloxacin 750 mg tablet 750 mg PO DAILY #5 tabs 04/22/23 Allergies Allergy/AdvReac Type Severity Reaction Status Date / Time amoxicillin Allergy Skin Rash Unverified 04/22/23 10:58 sulfamethoxazole Allergy Hives Unverified 04/22/23 10:58 [From Bactrim] trimethoprim [From Bactrim] Allergy Hives Unverified 04/22/23 10:58 General Stated Complaint: Nk/Back Pain JANESSA: 3 Review of Systems Constitutional Constitutional: Denies chills and Reports fever(s) (Subjective) ENT Ears, Nose, Mouth, and Throat: Denies neck pain Cardiovascular Cardiovascular: Denies chest pain and Denies dyspnea Respiratory Respiratory: Denies cough and Denies dyspnea Gastrointestinal Gastrointestinal: Denies abdominal pain, Denies nausea and Denies vomiting Genitourinary Genitourinary: Denies dysuria and Denies vaginal discharge Musculoskeletal Musculoskeletal: Reports back pain and Denies neck pain Integumentary/Breasts Skin/Breast: Denies rash Exam Const General: cooperative, healthy appearing, comfortable and no acute distress Orientation: alert, awake and oriented x3 HENMT Head: normal to inspection, normocephalic and atraumatic Mouth: moist mucous membranes Eyes General: appearance normal, both eyes and all related structures Conjunctivae: conjunctivae normal Neck Neck: normal visual inspection, full ROM, trachea midline and supple Resp Effort & Inspection: normal respiratory effort and able to speak in complete sentences Auscultation: clear to auscultation bilaterally Cardio Rate: regular rate Rhythm: regular rhythm GI Palpation: soft and nontender Back/Spine/Pelvis Back: no CVA tenderness and back tenderness (Diffuse thoracic, no midline point tenderness) Skin General skin exam: no rashes or lesions noted Neuro General: patient alert, patient awake, moves all extremities and no focal motor deficits Cognition: normal cognition Speech: speech normal Gait: normal gait Sensory Exam: no sensory deficits noted Extrem General: normal to inspection and no pedal edema Psych Appearance: grossly normal Mental Status: mental status grossly normal Course Vital Signs Vital signs: Vital Signs Temperature 37.0 C 04/22/23 10:55 Pulse 98 H 04/22/23 10:55 Respiratory Rate 18 04/22/23 10:55 Blood Pressure 179/115 H 04/22/23 10:55 Pulse Oximetry 98 04/22/23 10:55 Temperature 37.0 C 04/22/23 10:55 Temperature Source Skin 04/22/23 10:55 Pulse 98 H 04/22/23 10:55 Respiratory Rate 18 04/22/23 10:55 Respiratory Effort Normal 04/22/23 10:59 Blood Pressure 179/115 H 04/22/23 10:55 Blood Pressure Position Sitting 04/22/23 10:55 Pulse Oximetry 98 04/22/23 10:55 Oxygen Delivery Method Room Air 04/22/23 10:55 Oxygen Flow Rate 0 04/22/23 10:55 Pain Level 9 04/22/23 10:55 Lab/Test Results Lab/Test Results: Laboratory Tests Range/Units 04/22/23 11:40 WBC (4.4-10.8) 10^3/uL 16.14 H RBC (3.93-5.22) 10^6/uL 4.78 Hgb (11.2-15.7) g/dL 14.1 Hct (36.0-46.0) % 41.4 MCV (80-95) fL 87 MCH (27.0-33.0) pg 29.5 MCHC (32.0-36.0) % 34.1 RDW (11.7-14.6) % 12.8 Plt Count (130-400) 10^3/uL 342 MPV (8.0-11.0) fL 8.7 Immature Gran % 0.4 Neutrophils % 64.8 Lymphocytes % 26.4 Monocytes % 6.8 Eosinophils % 1.2 Basophils % 0.4 Nucleated RBC % (0.0-0.3) % 0.0 Absolute Neutrophils (1.2-6.7) 10^3/uL 10.46 H Absolute Lymphocytes (1.2-3.4) 10^3/uL 4.26 H Absolute Monocytes (0.1-0.8) 10^3/uL 1.10 H Absolute Eosinophils (0.0-0.7) 10^3/uL 0.19 Absolute Basophils (0.0-0.2) 10^3/uL 0.06 Medical Decision Making This is a 38-year-old female with past medical history of asthma, current smoker, chronic low back pain, presenting for atraumatic mid back pain for the past 3 days associated with simply not feeling well and subjective fevers. She was recently treated with doxycycline for 5 days for atypical pneumonia. While this very well could be musculoskeletal, given the vagueness of her discomfort, no trauma, I do believe workup to further evaluate for potential pneumonia, intra-abdominal process, pyelonephritis, etc. is within reason. Will also obtain flu, RSV, COVID. Laboratory values reveal leukocytosis of 16.14. Negative flu, negative RSV, negative COVID. Laboratory values otherwise unremarkable. Chest x-ray read by radiology as possible very subtle infiltrate in either the superior segment of the left lower lobe or left upper lobe. Repeat vital signs revealed that she is now normotensive, heart rate in the 80s. Discussed workup with patient. Clinically I do believe that pneumonia is very reasonable given her recent atypical pneumonia, and vague mid back complaints with feeling ill and feverish. Will provide IV Toradol for discomfort. She is allergic to both amoxicillin and sulfa, will not treat with Bactrim or Augmentin. She was recently treated with doxycycline so we will avoid this. Plan to treat with Levaquin. All questions were answered. Agree and understand treatment plan. Will call if any changes or concerns. Standard discharge and return precautions were provided. Patient understands, is agreeable to this plan, and has no additional questions or concerns upon discharge. This documentation was generated using [employer] system, please disregard any oddities of phrase or misspellings. Medical Records Medical records reviewed: Yes I reviewed the patient's medical records. Quality:[facility] Related Social Needs: No Data to Display PFSH All Active Problems (Updated 04/22/23 @ 13:40 by CR Valdez) Pneumonia (Acute) Medical History (Updated 04/22/23 @ 13:40 by CR Valdez) Asthma Surgical History H/O section Hx of cholecystectomy Social History Smoking/Tobacco Use Status: Current every day Tobacco Type: cigarettes Smoking risk assessment performed?: Yes Alcohol Intake: never Drug use: Occasionally Substance use type: marijuana Do you feel safe at home: Yes Do you feel safe in your relationship?: Yes Discharge Plan Disposition Patient Disposition: Home Condition: Stable Discharge Details Clinical Impression: Pneumonia Primary Care Provider: Rupali Lynn ED Provider: Joshua Saleh Home Meds and New Rx's Prescriptions: New levofloxacin 750 mg tablet 750 mg PO DAILY Qty: 5 0RF Continued Taltz Autoinjector 80 mg/mL auto-injector 1 ea SUBCUT Q4W Mirena 20 mcg/24 hr (5 years) Intrauterine Device 1 insert INTRAUTERINE ONCE albuterol sulfate 90 mcg/actuation Hfa Aerosol Inhaler 2 puff INHALATION Q6H PRN Discharge Instructions Instructions: Pneumonia (ED) Additional Instructions: Workup today reveals likely pneumonia. Difficult to know if this is acute or residual and returning from your recent pneumonia. Either way I am switching the antibiotics to Levaquin as you were recently on the doxycycline and had allergies both to amoxicillin and sulfa. I do recommend that you quit smoking. [id number] medications for cough as well as Tylenol and/or Motrin for fever and/or discomfort as directed. Please watch for new or worsening symptoms and return to the ER for any concerns. Lastly, I would like you to contact your primary care provider later today to discuss your ER visit and need for outpatient reevaluation next week.
--- NOTE | 2023-04-22 11:50 | DI.RAD_ITS ---
Exam(s) XR CHEST 2V PA LATERAL EXAM: XR CHEST 2V PA LATERAL CLINICAL HISTORY: feels feverish, back pain. TECHNIQUE: 2D digital imaging was performed. COMPARISON: CR,XR XR PORTABLE CHEST AP from 12/19/2022 FINDINGS: 2 views: Heart size is normal. The mediastinum is not widened. Right lung is clear. There are very minimal increased markings in left parahilar region. No air bro nchograms. No pleural effusions. No pneumothorax. IMPRESSION: Possible very subtle infiltrate in what is either the superior segment of the left lower lobe or left upper lobe. No pleural effusions. DATA REPOSITORY: RADIATION DOSE DELIVERED:
[2023-04-22 12:02] LABS: ALT 37 U/L (14-59); AST 13 U/L (15-37); Albumin 3.7 g/dL (3.4-5.0); Alkaline Phosphatase 136 U/L (46-116); Anion Gap 12.9 mmol/L (3-11); BUN 10 mg/dL (7-18); Bilirubin, Total 0.3 mg/dL (0.2-1.0); CO2 23.1 mmol/L (21.0-32.0); CREATININE 0.6 mg/dL (0.55-1.02); Calcium 9.6 mg/dL (8.5-10.1); Chloride 105 mmol/L (98-107); Estimated GFR 119.23 (mL/min/1.73m2); Glucose 100 mg/dL (74-106); Lipase 24 U/L (16-77); Potassium 3.7 mmol/L (3.5-5.1); Sodium 141 mmol/L (136-145); Total Protein 7.8 g/dL (6.4-8.2)
[2023-04-22 12:34] LABS: Bilirubin Negative (Negative); Blood Negative (Negative); Clarity Clear (Clear); Glucose Negative (Negative); Ketones Negative (Negative); Leukocyte Esterase Negative (Negative); Nitrite Negative (Negative); Specific Gravity 1.025 (1.005-1.025); Urobilinogen 0.2 mg/dL (Up to 0.2); pH 6.5 (5-8)
[2023-04-22 13:03] LABS: COVID-19 PCR Negative (Negative); Influenza A PCR Negative (Negative); Influenza B PCR Negative (Negative); RSV PCR Negative (Negative)
[2023-04-22 13:06] LABS: Source Nasopharynx
[2023-04-22 14:05] VITALS: BP 142/84; PULSE 84; RESP 16; O2SAT 98
== END 2023-04-22 14:07 | disposition home or self-care (01) ==
PROVIDERS: Emergency Provider Physician Assistant; PCP Physician Assistant Medical
DX: J18.9 Pneumonia, unspecified organism (principal); J45.909 Unspecified asthma, uncomplicated; F17.210 Nicotine dependence, cigarettes, uncomplicated; Z11.52 Encounter for screening for COVID-19
CPT/HCPCS: 80053; 81025; 83690; 87637; 99284; 71046; 81003; 85025

== ENCOUNTER 2024-04-05 03:55 | Emergency (ER) | payer MEDICAID, SELFPAY ==
[2024-04-05 03:57] VITALS: BP 165/110; PULSE 109; RESP 16; TEMP 36.3; O2SAT 98
--- NOTE | 2024-04-05 03:59 | ED.GENADUL_ITS ---
Discharge Plan Disposition Patient Disposition: Home Condition: Good Discharge Details Clinical Impression: UTI (urinary tract infection) Primary Care Provider: Rupali Lynn ED Provider: Bradley Thomason [place] Meds and New Rx's Prescriptions: New nitrofurantoin monohyd/m-cryst [Macrobid] 100 mg capsule 100 mg PO BID Qty: 9 0RF Rx Instructions: must administer with a meal/food Continued Taltz Autoinjector 80 mg/mL auto-injector 1 ea SUBCUT Q4W albuterol sulfate 90 mcg/actuation Hfa Aerosol Inhaler 2 puff INHALATION Q6H PRN Discharge Instructions Instructions: Urinary Tract Infection, Adult ED Additional Instructions: You were seen in the ED for urinary symptoms. Your urinalysis is consistent with infection. 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 You may continue use of uqaa-uiq-[id number] phenazopyridine as well as using acetaminophen or ibuprofen. The vaginal path probe results are pending, we will notify you if positive. Follow-up with primary care next week. Return to ED for persistent vomiting, worsening back pain, abdominal pain, other concerns. Stand Alone Forms: Work Release Referrals: Rupali Lynn [Primary Care Provider] - [facility] General Mode of arrival: ambulatory . Date/Time Provider Initiated Documentation: 04/05/24 03:57 . Limitations to Documentation: no limitations . Information obtained by: patient and RN notes reviewed . HPI Narrative: Patient presents to ED with complaint of urinary frequency, burning, urgency. Initially had symptoms a couple of weeks ago and was seen at [facility]. Reports negative urinalysis but did have a prescription for antibiotics sent in in case things became worse. She never picked this up and thought things were getting better until overnight has developed significantly worsening symptoms. Denies any fever, chills, back pain, abdominal pain, nausea or vomiting. Is status post hysterectomy relatively recently. At her postop check she was found to have BV for which she did not finish her antibiotic. Denies significant vaginal discharge. Did take [id number] phenazopyridine before coming in. Related Data Home Medications ?Medication ?Instructions ?Recorded ?Confirmed albuterol sulfate 90 mcg/actuation 2 puff inhalation Q6H PRN 11/15/17 04/05/24 aerosol inhaler ixekizumab 80 mg/mL subcutaneous 1 ea subcut Q4W 01/13/22 04/05/24 auto-injector (Taltz Autoinjector) nitrofurantoin 100 mg PO BID #9 caps 04/05/24 monohydrate/macrocrystals 100 mg capsule (Macrobid) Previous Rx's ?Medication ?Instructions ?Recorded nitrofurantoin 100 mg PO BID #9 caps 04/05/24 monohydrate/macrocrystals 100 mg capsule (Macrobid) Allergies Allergy/AdvReac Type Severity Reaction Status Date / Time amoxicillin Allergy Skin Rash Unverified 04/22/23 10:58 sulfamethoxazole (From Allergy Hives Unverified 04/22/23 10:58 Bactrim) trimethoprim (From Bactrim) Allergy Hives Unverified 04/22/23 10:58 General JANESSA: 3 Review of Systems Narrative: Per HPI Exam Narrative Exam Narrative: Const: WDWN female in NAD. VS per triage. HEENT: NC/AT. Normal facial exam. Neck: Supple. Trachea midline. Lungs: Normal respiratory effort. GI: Soft/ND/NT. Back: No CVAT Neuro: A+O x 3. Normal speech, mentation, gait. Cranial nerves II - XII grossly intact. No gross motor or sensory deficit. Medical Decision Making Patient presenting to ED with urinary symptoms. Reports negative urine a couple weeks ago and not taken antibiotics as she seemed to be better until the last 24 hours. Also reports that at her postop visit status post hysterectomy was diagnosed with BV and took some of her antibiotic but not all of it. No evidence of systemic illness. Urinalysis and vaginal probe sent. Blood work not indicated at this time. Patient's urinalysis with trace blood and trace leukocytes but micro shows 20-50 WBCs with few bacteria. Given her symptoms we will start on nitrofurantoin for UTI. Vaginal path probe still pending, will notify patient if any positive results. She may continue use of [id number]-[id number] phenazopyridine for symptoms. She is instructed to complete the antibiotic course. Follow-up with primary care next week. Return precautions provided. Lab Data Lab results reviewed: Yes I reviewed the patient's lab results. Lab results narrative: See [facility] All Active Problems (Updated 04/05/24 @ 04:54 by Bradley Thomason MD) UTI (urinary tract infection) (Acute) Medical History (Updated 04/05/24 @ 04:54 by Bradley Thomason MD) Asthma Surgical History (Updated 04/05/24 @ 04:44 by Bradley Thomason MD) S/P hysterectomy H/O section Hx of cholecystectomy Social History Smoking/Tobacco Use Status: Current every day Tobacco Type: cigarettes Smoking risk assessment performed?: Yes Alcohol Intake: never Drug use: Occasionally Substance use type: marijuana Housing: house Do you feel safe at home: Yes Do you feel safe in your relationship?: Yes
[2024-04-05 04:05] VITALS: BP 165/110; PULSE 109; RESP 16; TEMP 36.3; O2SAT 98
[2024-04-05 04:11] LABS: Bilirubin Negative (Negative); Blood Trace-intact (Negative); Clarity Sl Cloudy (Clear); Glucose Negative (Negative); Ketones Negative (Negative); Leukocyte Esterase Trace (Negative); Nitrite Negative (Negative); Specific Gravity >= 1.030 (1.005-1.025); Urobilinogen 0.2 mg/dL (Up to 0.2); pH 5.5 (5-8)
[2024-04-05 04:21] LABS: Bacteria Few HPF (Negative); C & S Indicated? Yes; Casts Negative LPF (Negative); Crystals Negative HPF (Negative); Epithelial Cells Few HPF (Negative); Mucus Moderate (Negative); RBC 0-2 HPF (0-2); WBC 20-50 HPF (0-5)
[2024-04-05] MEDS: MacroBID 100 MG CAP PO (04:57)
[2024-04-05 05:03] VITALS: BP 165/100; PULSE 88; RESP 16; O2SAT 99
--- NOTE | 2024-04-07 09:06 | NUR.NOTE ---
Accessed Pt chart to obtain the name of the antibiotic prescribed to the Pt. This was sNursing Note:
--- NOTE | 2024-04-07 09:07 | NUR.NOTE ---
Accessed Pt chart to document the name of the antibiotic prescribed to PT. This is for the SDNursing Note:
--- NOTE | 2024-04-07 09:08 | NUR.NOTE ---
Accessed Pt chart to document the name of the antibiotic prescribed to the PT. This is for the Specimen Report. Report given to Dr Ordoñez
== END 2024-04-05 05:05 | disposition home or self-care (01) ==
PROVIDERS: Emergency Provider Emergency Medicine; PCP Physician Assistant Medical
DX: N76.0 Acute vaginitis (principal); B96.89 Other specified bacterial agents as the cause of diseases classified elsewhere; N39.0 Urinary tract infection, site not specified; F17.210 Nicotine dependence, cigarettes, uncomplicated; Z90.710 Acquired absence of both cervix and uterus
CPT/HCPCS: 99283; 81003; 81015; 87086; 87480; 87510; 87660

== ENCOUNTER 2024-07-24 08:45 | Emergency (ER) | payer MEDICAID, SELFPAY ==
[2024-07-24 08:46] VITALS: BP 165/85; PULSE 97; RESP 16; TEMP 36.6; O2SAT 98
[2024-07-24] MEDS: Lidocaine 1% Pres-Free W/EPI 1/200,000 30 ML VIAL (09:13)
--- NOTE | 2024-07-24 09:38 | ED.GENADUL_ITS ---
Discharge Plan Disposition Patient Disposition: Home Condition: Good Discharge Details Clinical Impression: Abscess Primary Care Provider: Rupali Lynn ED Provider: Lilly Yarbrough Home Meds and New Rx's Prescriptions: New albuterol sulfate 2.5 mg/0.5 mL solution for nebulization 5 mg inhalation QID PRN (Reason: shortness of breath or wheezing) Qty: 30 0RF Continued Taltz Autoinjector 80 mg/mL auto-injector 1 ea SUBCUT Q4W doxycycline hyclate 100 mg capsule 100 mg PO BID Patient Comments: TAKE ONE CAPSULE BY MOUTH TWICE A DAY X9 albuterol sulfate 90 mcg/actuation Hfa Aerosol Inhaler 2 puff INHALATION Q6H PRN Discharge Instructions Instructions: Abscess Incision and Drainage ED Additional Instructions: You were treated today for an abscess behiind your right ear, likely associated with being hit by your earring. This has been opened- please allow drainage to continue. Wash with running water and soap as you typically would. Please continue with dressing while drainage persists. Glasses will likely rub on this so should be avoided for the time being, as should the second ear piercing. If you note increased pain, fevers/chills, recurrent swelling or other new/worsening symptoms, please seek care urgently once again. Please continue treatment for your illness as previously instructed. Please follow up with your primary care in one week for reevaluation. As you were out of your nebulizer medication, this has been refilled and sent to your pharmacy. Referrals: Rupali Lynn [Primary Care Provider] - [facility] General Date/Time Provider Initiated Documentation: 07/24/24 08:53 . Limitations to Documentation: no limitations . Information obtained by: patient and RN notes reviewed . History of Present Illness 39 year old F presents to the emergency department with the chief complaint of pain and swelling behind right ear, described as moderate, with intensity rated at 5. Quality is described as aching, and is localized to the face. Patient reports no radiation. Patient started experiencing this day(s) and it has been constant. No relieving factors improve symptom(s), No exacerbating factors reported . Patient notes cough (states she was recently diagnosed with bronchitis) and malaise; denies diaphoresis, fever/chills, nausea/vomiting and shortness of breath. Patient did receive the following treatments prior to arrival, none Related Data Home Medications ?Medication ?Instructions ?Recorded ?Confirmed albuterol sulfate 90 mcg/actuation 2 puff inhalation Q6H PRN 11/15/17 07/24/24 aerosol inhaler ixekizumab 80 mg/mL subcutaneous 1 ea subcut Q4W 01/13/22 07/24/24 auto-injector (Taltz Autoinjector) albuterol sulfate 2.5 mg/0.5 mL 5 mg inhalation QID PRN shortness 07/24/24 solution for nebulization of breath or wheezing #30 ea doxycycline hyclate 100 mg capsule 100 mg PO BID 07/24/24 07/24/24 Previous Rx's ?Medication ?Instructions ?Recorded albuterol sulfate 2.5 mg/0.5 mL 5 mg inhalation QID PRN shortness 07/24/24 solution for nebulization of breath or wheezing #30 ea Allergies Allergy/AdvReac Type Severity Reaction Status Date / Time amoxicillin Allergy Skin Rash Unverified 07/24/24 08:51 sulfamethoxazole (From Allergy Hives Unverified 07/24/24 08:51 Bactrim) trimethoprim (From Bactrim) Allergy Hives Unverified 07/24/24 08:51 General Stated Complaint: RashLesion JANESSA: 4 Review of Systems Constitutional Constitutional: Reports as per HPI and Denies headache(s) Eyes Eyes: Reports as per HPI, Denies eye discharge and Denies irritation ENT Ears, Nose, Mouth, and Throat: Reports as per HPI and Denies headache(s) Cardiovascular Cardiovascular: Reports as per HPI, Denies chest pain and Denies dyspnea Respiratory Respiratory: Reports as per HPI and Denies dyspnea Gastrointestinal Gastrointestinal: Reports as per HPI, Denies abdominal pain, Denies change in bowel habits, Denies nausea and Denies vomiting Integumentary/Breasts Skin/Breast: Reports as per HPI and Denies rash Neurologic Neurologic: Reports as per HPI and Denies headache(s) Exam Const General: cooperative, healthy appearing, comfortable, no acute distress, well developed and well groomed Nutritional Appearance: average body habitus and well nourished Orientation: alert and awake [facility] Head: normal to inspection, normocephalic and atraumatic Head images: 2 1. At the auricular fold where patient's upper earring would strike, patient has a 1 cm circular raised erythematous area that is fluctuant on palpation and tender. No surrounding erythema. No drainage. No abnormality to the ear itself. No appreciable lymphadenopathy. Ears: hearing grossly normal bilaterally and TM's normal bilaterally General nose exam: external nose normal and nares normal Face and sinus: normal facial exam, sinuses nontender and face symmetric Mouth: oral mucosae normal, lip normal, tongue normal, oropharynx normal and moist mucous membranes Teeth and gingiva: dentition normal Throat: posterior oropharynx normal, tonsils normal and uvula midline Eyes General: appearance normal, both eyes and all related structures Neck Neck: normal visual inspection and no lymphadenopathy Resp Effort & Inspection: normal respiratory effort, able to speak in complete sentences and no respiratory distress Auscultation: clear to auscultation bilaterally, no rales, no rhonchi and no wheezes Cardio Rate: regular rate Rhythm: regular rhythm Heart Sounds: S1 normal and S2 normal Neuro General: patient alert and patient awake Cognition: normal cognition Speech: speech normal Gait: normal gait Course Vital Signs Vital signs: Vital Signs Temperature 36.6 C 07/24/24 08:46 Pulse 97 H 07/24/24 08:46 Respiratory Rate 16 07/24/24 08:46 Blood Pressure 165/85 H 07/24/24 08:46 Pulse Oximetry 98 07/24/24 08:46 Temperature 36.6 C 07/24/24 08:46 Temperature Source Temporal Artery Scan 07/24/24 08:46 Pulse 97 H 07/24/24 08:46 Respiratory Rate 16 07/24/24 08:46 Blood Pressure 165/85 H 07/24/24 08:46 Blood Pressure Position Sitting 07/24/24 08:46 Pulse Oximetry 98 07/24/24 08:46 Oxygen Delivery Method Room Air 07/24/24 08:46 Oxygen Flow Rate 0 07/24/24 08:46 Pain Level 5 07/24/24 08:46 Procedure Abscess Drainage Date of Procedure: 07/24/24 Provider that performed the procedure: Lilly Keyes Time Out Performed: Yes Patient Consented: Verbally Complications: None Procedure Description Note: Using standard sterile technique, the area was cleansed chlorhexidine. Area was then anesthetized with 1% lidocaine with epinephrine, 2 cc was used. This provided sufficient anesthesia and 11 blade was used to open the area. About 3 cc of thick purulent discharge was expressed. No significant bleeding or complications. Patient tolerated this well. Medical Decision Making Doing patient is a pleasant 39-year-old female past medical history significant for asthma. Surgical history significant for hysterectomy, presented with chief complaint of pain behind the right ear. Patient reports that about 6 days ago she developed rhinorrhea, congestion, cough. Was seen at outside hospital and diagnosed with bronchitis. Says that she was having some increase in her asthma symptoms, has been using her albuterol nebulizer and does report that she needs a refill of this medication. She reports that outside hospital did place her on doxycycline for her bronchitis. Something overall cold symptoms have improved some. However, she states that she also noted some pain behind the right ear that has progressively worsened. She denies any pain in the ear. No discharge, hearing changes. Has never had pain like this historically. On exam, patient appears nontoxic. She is hemodynamically stable. Lungs are clear, normal cardiac exam. HEENT exam is normal except for area directly behind the ear at the auricular fold where it appears that her upper ear piercing may have struck the ear and led to a focal infection. She does have a small abscess with no surrounding infection. She does report that she has had several abscesses and boils over her life. She does not have any pain over the mastoid. No lymphadenopathy. While patient and I were initially thinking that the area in question may have been associated with the acute illness, it appears that she has a small focal abscess with no surrounding infection, deep space infection, mastoiditis. This does not involve the internal ear or the mouth. TMs were normal. Seems like this is just coincidence as far as timing goes, she does report that she typically lays on the side and had been sleeping more when she was acutely ill. Patient again, has had these several times but not dislocation. We discussed risks benefits as well as expected procedural steps associated with I&D of the small abscess. She voiced understanding and wished to proceed. Please see procedure note. Patient tolerated this well. We discussed continued treatment for this. Dressing notes to allow for some amount of drainage was applied and she was provided supplies to reapply if needed. Patient is already on antibiotics but based on her local this was, this would not be an abscess that I would routinely place her on antibiotics for. However, if she was already on this for another same, I do feel is appropriate for her to finish the course. I did refill her albuterol she reports that she did run out of this. Overall feels like the upper respiratory infection has improved so advised that she continue with the previous recommendations. Return precautions were discussed. All her questions and concerns were addressed and she is in agreement this plan. This documentation was generated using [employer] system, please disregard any oddities of phrase or misspellings. Quality:SDOH Health Related Social Needs: 2 No Data to Display PFSH All Active Problems (Updated 07/24/24 @ 09:39 by CR Ayala) Abscess (Acute) Medical History (Updated 07/24/24 @ 09:39 by CR Ayala) Asthma Surgical History (Updated 04/05/24 @ 04:44 by Bradley Thomason MD) S/P hysterectomy H/O section Hx of cholecystectomy Social History Smoking/Tobacco Use Status: Current every day Tobacco Type: cigarettes Smoking risk assessment performed?: Yes Alcohol Intake: never Drug use: Occasionally Substance use type: marijuana Housing: house Do you feel safe at home: Yes Do you feel safe in your relationship?: Yes POCUS Exam (ED) Limited Soft Tissue Exam PROVIDER THAT PERFORMED THE STUDY: Lilly Yarbrough
== END 2024-07-24 09:54 | disposition home or self-care (01) ==
PROVIDERS: Emergency Provider Physician Assistant; PCP Physician Assistant Medical
DX: H60.01 Abscess of right external ear (principal); J45.909 Unspecified asthma, uncomplicated
CPT/HCPCS: 99283 ×2; 10060; J2004

== ENCOUNTER 2024-10-26 13:17 | Emergency (ER) | payer MEDICAID, SELFPAY ==
[2024-10-26 13:24] VITALS: BP 184/84; PULSE 99; RESP 16; TEMP 36.6; O2SAT 96
--- NOTE | 2024-10-26 13:54 | ED.GENADUL_ITS ---
Discharge Plan Disposition Patient Disposition: Home Condition: Stable Discharge Details Clinical Impression: Low back pain, Elevated blood pressure reading Primary Care Provider: Rupali Lynn ED Provider: Nick Ross Home Meds and New Rx's Prescriptions: Continued albuterol sulfate 2.5 mg/0.5 mL solution for nebulization 5 mg inhalation QID PRN (Reason: shortness of breath or wheezing) Qty: 30 0RF albuterol sulfate 90 mcg/actuation Hfa Aerosol Inhaler 2 puff INHALATION Q6H PRN Discharge Instructions Instructions: Low Back Pain ED Additional Instructions: Please take ibuprofen 600 mg by mouth every 6-8 hours as needed for pain for the next few days. Start after 10 PM tonight. Please take tylenol (acetaminophen) 650 mg every 6 hours as needed for pain. Be sure to avoid any other medications that containe tylenol (acetaminophen). Start after 8 PM tonight. Please avoid activities that worsen pain. Please follow-up with your primary care physician. Your blood pressure was elevated today. Please be sure to follow-up with your primary care physician for recheck. Should blood pressure remain elevated, additional diagnostics and treatment may be necessary. Please follow-up with physical therapy. Please follow-up with a back specialist given recurrent issue. Return to the emergency department immediately for any worsening or new concerning symptoms. Stand Alone Forms: Physical Therapy Referral Referrals: Alon Fernandez, Physical Therapy [Outside] Rupali Lynn [Primary Care Provider, Medicine] Discharge Data Discharge Date/Time-TO BE ENTERED AT DEPARTURE: 10/26/24 14:21 HPI General Mode of arrival: ambulatory . Date/Time Provider Initiated Documentation: 10/26/24 13:37 . Limitations to Documentation: no limitations . Information obtained by: patient . HPI Narrative: HISTORY OF PRESENT ILLNESS 39-year-old female with arthritis presenting with back pain. She began experiencing back pain this morning, initially managed with stretching, heating pad, ibuprofen, IcyHot, and a shower. Pain became tolerable but legs gave out while walking, a new symptom. Pain is primarily on the right side of her spine, worsens when sleeping on that side. Used Bengay and IcyHot for relief. Took 400 mg ibuprofen between 0900 and 1000 hours, no Tylenol. No direct trauma to back today. History of similar back pain episodes, first time with leg weakness. Arthritis, typically takes injection medicine, not taken since hysterectomy in 01/2024. PAST SURGICAL HISTORY: Hysterectomy in 01/2024. Related Data Home Medications ?Medication ?Instructions ?Recorded ?Confirmed albuterol sulfate 90 mcg/actuation 2 puff inhalation Q 6H PRN 11/15/17 10/26/24 aerosol inhaler albuterol sulfate 2.5 mg/0.5 mL 5 mg inhalation QID [place] N shortness 07/24/24 10/26/24 solution for nebulization of breath or wheezing #30 ea Previous Rx's ?Medication ?Instructions ?Recorded albuterol sulfate 2.5 mg/0.5 mL 5 mg inhalation QID [place] N shortness 07/24/24 solution for nebulization of breath or wheezing #30 ea Allergies Allergy/AdvReac Type Severity Reaction Status Date / Time amoxicillin Allergy Skin Rash Unverified 10/26/24 13:28 sulfamethoxazole (From Allergy Hives Unverified 10/26/24 13:28 Bactrim) trimethoprim (From Bactrim) Allergy Hives Unverified 10/26/24 13:28 General Stated Complaint: Nk/Back Pain JANESSA: 4 Review of Systems All systems reviewed & are unremarkable except as noted in HPI and below Constitutional Constitutional: Denies fever(s) Musculoskeletal Musculoskeletal: Reports as per HPI Exam Const General: cooperative and no acute distress [facility] Head: atraumatic Mouth: moist mucous membranes Eyes Conjunctivae: normal conjunctivae Sclera: normal sclerae Neck Neck: trachea midline and supple Resp Auscultation: clear to auscultation bilaterally, no rales, no rhonchi and no wheezes Cardio Rate: regular rate and not tachycardic Rhythm: regular rhythm GI Palpation: soft, not firm, no guarding, no masses, not rigid and nontender Back/Spine/Pelvis Thoracic/Lumbar Spine: paraspinal tenderness (right lumbar) and lumbar spinal tenderness Skin General skin exam: no rashes or lesions noted Neuro General: patient alert, patient awake, patient oriented x3 and tone normal Cognition: normal cognition Speech: speech normal Motor: strength 5/5 throughout (bilateral LEs) Sensory Exam: no sensory deficits noted and other (no saddle anesth) Extrem General: no edema Psych Appearance: grossly normal Mental Status: mental status grossly normal Course Vital Signs Vital signs: Vital Signs Temperature 36.6 C 10/26/24 13:24 Pulse 99 H 10/26/24 13:24 Respiratory Rate 16 10/26/24 13:24 Blood Pressure 184/84 H 10/26/24 13:24 Pulse Oximetry 96 10/26/24 13:24 Temperature 36.6 C 10/26/24 13:24 Temperature Source Oral 10/26/24 13:24 Pulse 99 H 10/26/24 13:24 Respiratory Rate 16 10/26/24 13:24 Blood Pressure 184/84 H 10/26/24 13:24 Blood Pressure Position Sitting 10/26/24 13:24 Pulse Oximetry 96 10/26/24 13:24 Oxygen Delivery Method Room Air 10/26/24 13:24 Oxygen Flow Rate 0 10/26/24 13:24 Medical Decision Making ASSESSMENT AND PLAN Initial Assessment: 39-year-old female with back pain that started today after bending and lifting. Similar to prior episodes. Patient notes legs did give out. She has been able to ambulate since. No bowel or bladder dysfunction. No numbness. Differential Diagnosis: - Lumbosacral strain - Disc bulge: Nerve irritation. Anti-inflammatories, mobility advice, physical therapy referral. - Muscle spasms: Inflammation. Anti-inflammatories, mobility advice, physical therapy referral. ED Course: Toradol injection and Tylenol administered. Patient declining Valium and lidocaine patch. Final Assessment: 39-year-old female here with recurrent low back pain. Toradol and Tylenol for pain relief. Valium prescribed for muscle relaxation. Physical therapy referral for pain management and mobility improvement. Clinical Impression: Back pain, disc bulge, muscle spasms. Disposition: Discharge home. Return if urinary incontinence or numbness or other concerning symptom develops. Follow-Up: Physical therapy referral. Call next week to arrange follow-up. Patient Education: Maintain mobility without exacerbating pain. Avoid complete bed rest. Use ibuprofen or naproxen around the clock, add Tylenol if needed. This document was written with the assistance of [employer]. The patient consented to its use. PFSH All Active Problems Elevated blood pressure reading (Acute) Low back pain (Acute) Medical History Asthma Surgical History S/P hysterectomy H/O section Hx of cholecystectomy Social History Smoking/Tobacco Use Status: Current every day Tobacco Type: cigarettes Smoking risk assessment performed?: Yes Alcohol Intake: never Drug use: Occasionally Substance use type: marijuana Housing: house Do you feel safe at home: Yes Do you feel safe in your relationship?: Yes
[2024-10-26] MEDS: Acetaminophen 325 MG TAB 650 MG PO (14:07)
[2024-10-26] MEDS: Ketorolac 30 MG/ML VIAL IM (14:07)
[2024-10-26 14:19] VITALS: BP 172/96; PULSE 86; RESP 12; TEMP 36.8; O2SAT 98
== END 2024-10-26 14:21 | disposition home or self-care (01) ==
PROVIDERS: Emergency Provider Student in an Organized Health Care Education/Training Program; PCP Physician Assistant Medical
DX: M54.50 Low back pain, unspecified (principal); R03.0 Elevated blood-pressure reading, without diagnosis of hypertension
CPT/HCPCS: 99283; 99284; 96372; J1885